=== PATIENT | male | born 1975 | race Caucasian/White ===

== ENCOUNTER 2018-02-24 09:24 | Outpatient (CLI) | payer OTHER ==
--- NOTE | 2018-02-24 11:27 | ULT ---
HEPATIC DUPLEX ULTRASOUND: INDICATIONS: Abnormal LFTs. TECHNIQUE: Rock-scale, color Doppler, and vascular duplex with spectral analysis is performed of the right upper quadrant and the hepatic vasculature. FINDINGS: There is diffuse fatty infiltration of the liver. The spleen is within normal limits in size and isabela sures 1.4 cm. The gallbladder is normal appearing. No sonographic Quiroz sign is reported. The com mon bile duct measures 2.2 mm. Appropriate hepatobiliary flow is seen within the portal vasculature, as well as within the hepatic vein and the splenic artery. IMPRESSION: 1. Fatty liver. 2. Appropriate hepatopetal flow demonstrated. POS: [facility]
== END 2018-02-24 09:25 | disposition home or self-care (01) ==
LOC: ULT 09:24
PROVIDERS: ATTEND Internal Medicine Gastroenterology
DX: R74.8 Abnormal levels of other serum enzymes (principal); K76.0 Fatty (change of) liver, not elsewhere classified
CPT/HCPCS: 76705

== ENCOUNTER 2018-12-21 09:27 | Emergency (ER) | payer OTHER ==
[2018-12-21] MEDS ORDERED: methylPREDNISolone Sod Succ/PF 125 MG/2 ML VIAL ONE ×2 (09:35→09:44)
== END 2018-12-21 11:37 | disposition home or self-care (01) ==
LOC: ERS 09:27
DX: T78.40XA Allergy, unspecified, initial encounter (principal); F17.200 Nicotine dependence, unspecified, uncomplicated; Z79.899 Other long term (current) drug therapy
CPT/HCPCS: 96361; 96374; J2930

== ENCOUNTER 2019-04-05 16:48 | Inpatient (IN) | payer OTHER ==
[~2019-04-05 16:48] MED LIST: ISOVUE-370 76%-LOCM 1 ML ONE
--- NOTE | 2019-04-05 17:26 | RAD ---
XR Chest 1 View Portable History: Dyspnea Comparison: Radiograph January 01, 2013 Findings: Heart size is enlarged. Single-lead defibrillator is in place. The pneumothorax. Mild pulmo nary venous congestion. No acute osseous abnormality. Impression: 1. Hepatomegaly and mild pulmonary venous congestion. 2. Opacity of the lingula just below the generator. Close attention on follow-up imaging recommended.
[2019-04-05 17:36] LABS: #Basophils 0.1 thou/uL (0.0-0.2); #Eosinphils 0.2 thou/uL (0.0-0.7); #Lymphocytes 1.8 thou/uL (1.20-3.40); #Neutrophils 8.4 thou/uL (1.40-6.50); %Basophils 0.8 % (0.0-1.0); %Eosinophils 2.1 % (0.0-10.0); %Lymphocytes 15.7 % (21.0-51.0); %Monocytes 8.2 % (0.0-10.0); %Neutrophils 73.2 % (42.0-75.0); Hemoglobin 15.4 g/dL (14.0-18.0); Mean Corpuscular Hemoglobin 34.7 pg (27.0-31.0); Mean Platelet Volume 7.6 fL (7.4-10.4); Platelet Count 199 thou/uL (130-400); RBC Distribution Width 11.8 % (11.5-14.5); Red Blood Cell (RBC) Count 4.44 mill/uL (4.70-6.10); White Blood Cell (WBC) Count 11.5 thou/uL (4.8-10.8)
[2019-04-05 17:54] LABS: Bilirubin Negative (Negative); Blood, Urine Negative (Negative); Clarity Clear (Clear); Glucose, Urine (Dipstick) Normal (Negative); Leukocyte Negative Leu/uL (Negative); Nitrite Negative (Negative); Protein, Urine (Dipstick) Negative (Neg-Trace); Urobilinogen Normal mg/dL (Less than 2)
[2019-04-05 17:58] LABS: ALT (SGPT) 194 U/L (8-55); AST (SGOT) 81 U/L (5-34); Albumin 4.4 g/dL (3.5-5.0); Alkaline Phosphatase 80 U/L (40-110); Anion Gap 11 mmol/L (10-20); BUN (Urea Nitrogen) 11 mg/dL (8.9-20.6); Bilirubin, Total 1.1 mg/dL (0.2-1.2); Calc. Creatinine Clearance 0 mL/min (70-130); Calcium 9.5 mg/dL (7.8-10.44); Carbon Dioxide 33 mmol/L (22-29); Chloride 93 mmol/L (98-107); Estimated GFR-MDRD Greater than 90; Globulin 3.5 g/dL (2.4-3.5); Glucose 103 mg/dL (70-105); Potassium 3.7 mmol/L (3.5-5.1); Protein, Total 7.9 g/dL (6.0-8.3); Sodium 133 mmol/L (136-145)
--- NOTE | 2019-04-05 18:50 | CT ---
CT ANGIO CHEST PERFORMED WITH INTRAVENOUS CONTRAST ENHANCEMENT WITH 3D RECONSTRUCTIONS: HISTORY: Acute shortness of breath. Dizziness and lightheadedness. Elevated D-dimer. FINDINGS: There are patchy infiltrative changes within the lingula. The right lung is clear. No significant mediastinal or hilar adenopathy. There is good pulmonary arterial opacification and no CT evidence for pulmonary embolus. There are diffuse fatty changes of the liver. IMPRESSION: 1. Lingular infiltrate. 2. No CT evidence of pulmonary embolus. 3. Fatty changes of the liver. POS: [facility]
[2019-04-05] MEDS ORDERED: Lorazepam 2 MG/ML VIAL ONE (19:19)
[2019-04-05] MEDS ORDERED: Furosemide 40 MG/4 ML VIAL ONE (19:19)
[2019-04-05] MEDS ORDERED: Azithromycin 250 MG TAB ONE (19:19)
[2019-04-05] MEDS ORDERED: cefTRIAXone\\ROCEPHIN 1 GM VIAL ONE (19:19)
[2019-04-05] MEDS ORDERED: Aspirin 325 MG TAB ONE (19:19)
[2019-04-05 21:02] LABS: Troponin I 0.024 ng/mL (< 0.028)
[2019-04-05] MEDS ORDERED: Ondansetron ODT 4 MG TAB PO PRN (21:02)
[2019-04-05] MEDS ORDERED: Ondansetron PF 4 MG/2 ML Vial IVP PRN (21:02)
[2019-04-05] MEDS ORDERED: Magnesium 2 GM/50 ML 2 GM in Premix Bag 1 BAG IVPB SCH (21:30)
[2019-04-05 22:25] VITALS: BMI 31.0
[2019-04-05 23:13] LABS: Troponin I 0.022 ng/mL (< 0.028)
[2019-04-05] MEDS ORDERED: Temazepam 15 MG CAP PO PRN (23:55)
[2019-04-05] MEDS: ALPRAZolam 1 MG TAB PO PRN (23:59)
--- NOTE | 2019-04-06 04:03 | HP ---
CHIEF COMPLAINT: Shortness of breath. HISTORY OF PRESENT ILLNESS: This is a 43-year-old male patient with past medical history of cardiomyopathy, alcohol abuse, also has reported the patient is doing vaping on a daily basis and drinking a lot of alcohol. The symptoms started insidiously and has gotten gradually worsening with no clear triggers, no alleviating factors likely related to alcohol and vaping abuse. The patient denies any fever. No chest pain, scant cough. REVIEW OF SYSTEMS: CONSTITUTIONAL: No fever, chills, or generalized weakness. RESPIRATORY: The patient has cough. No sputum production. Shortness of breath. CARDIOVASCULAR: No chest pain or palpitation. GASTROINTESTINAL: No nausea, vomiting, diarrhea, or abdominal pain. CENTRAL NERVOUS SYSTEM: No dizziness, headache, or feeling lightheaded. GENITOURINARY: No burning on urination. EXTREMITIES: No leg swelling. All other systems were reviewed and negative except for the findings mentioned above. PAST MEDICAL HISTORY: As mentioned in HPI. SURGICAL HISTORY: AICD placement. FAMILY HISTORY: Reviewed, noncontributory for current presentation. PSYCHIATRIC HISTORY: No previous psych history. SOCIAL HISTORY: The patient drinks everyday, more than 5 drinks per day. No drug use. ALLERGIES: KNOWN ALLERGIES TO MORPHINE. REPORTED MEDICATIONS: Carvedilol, spironolactone, Lasix, Adderall, EpiPen, temazepam, cyanocobalamin, alprazolam, naltrexone, duloxetine, and Prozac. PHYSICAL EXAMINATION: VITAL SIGNS: On presentation, blood pressure 160/95 with heart rate 120, respiratory rate was 22, temperature 98.1. Pain was 0/10. Oxygen saturation was 97% on room air. Blood pressure has been also on the high side. Heart rate is still elevated. GENERAL APPEARANCE: The patient is alert, oriented, not in acute distress. He seems anxious. HEENT: Eyes, normal conjunctivae. Moist oral mucosa. Anicteric. No JVD. RESPIRATORY: Bilateral air entry. No rales. No wheezes. Symmetric expansion. CARDIOVASCULAR: The patient is tachycardiac, hypertensive. No murmurs. No gallop. No edema. ABDOMEN: Soft. Normal bowel sounds. MUSCULOSKELETAL: Baseline range of motion and strength. SKIN: Warm and intact. No pallor. No rash. No redness. Capillary refill seems to be intact. NEUROLOGIC: No evidence of any new focal weakness. Cranial nerves seem to be intact. PSYCHIATRIC: The patient is seen anxious. DIAGNOSTIC DATA: EKG shows sinus tachycardia at the rate of 115, incomplete RBBB. Left ventricular hypertrophy, left atrial enlargement. QT corrected 459. Radiology; chest CT showed fatty liver disease and infiltrates in the lingular area. No PE. Preliminary review was done by the radiologist. LABORATORY DATA: Reviewed. The patient has white count 11.5, hemoglobin 15.4, MCV 102, platelet count 199. D-dimer is 1.67. Chemistry; sodium 133, potassium 3.7 , chloride 93, carbon dioxide 33, anion gap 11, BUN 11, creatinine 0.91, GFR greater than 90, glucose 103, calcium 9.5, magnesium 1.5. LFTs, mildly elevated. Beta natriuretic peptide 250. Troponins were negative x2. ASSESSMENT/PLAN: The patient will be placed in the hospital with following medical problems. 1. Community-acquired pneumonia, unclear how much of this is from abuse of vaping that the patient is having. This has been discussed with the patient and . The patient has been started on antibiotics. We will continue for now. We will follow cultures and adjust per sensitivity. 2. Chronic alcohol abuse, presenting with acute alcohol withdrawal. Patient has hypertension, tachycardia. Mentation is preserved. We will start the patient on YOSEPH protocol and adjust treatment as per progression of the withdrawal. 3. Positive D-dimer. CT angio was negative. 4. Hyponatremia, sodium 133, this is mild, no need for any further intervention at this point. We will monitor and treat accordingly. 5. Acute exacerbation of congestive heart failure. The patient has underlying cardiomyopathy. We will do echo, continue diuresis, reconcile home medications. If any significant abnormalities appear, the patient might benefit from consulting Cardiology. 6. Hypomagnesemia with magnesium 1.5. We will replace electrolytes as needed. 7. Deep venous thrombosis prophylaxis. 8. Anxiety likely secondary to alcohol withdrawal. Treatment as above. Job ID: [id number] [facility]
[2019-04-06 05:21] LABS: #Basophils 0.1 thou/uL (0.0-0.2); #Eosinphils 0.3 thou/uL (0.0-0.7); #Lymphocytes 2.6 thou/uL (1.20-3.40); #Monocytes 0.7 thou/uL (0.11-0.59); #Neutrophils 4.5 thou/uL (1.40-6.50); %Basophils 1.4 % (0.0-1.0); %Eosinophils 3.5 % (0.0-10.0); %Lymphocytes 32.2 % (21.0-51.0); %Monocytes 8.4 % (0.0-10.0); %Neutrophils 54.5 % (42.0-75.0); Hemoglobin 16.4 g/dL (14.0-18.0); Mean Corpuscular HGB CONC 33.6 g/dL (32.0-36.0); Mean Corpuscular Hemoglobin 34.5 pg (27.0-31.0); Mean Platelet Volume 8.2 fL (7.4-10.4); Platelet Count 200 thou/uL (130-400); RBC Distribution Width 11.8 % (11.5-14.5); Red Blood Cell (RBC) Count 4.77 mill/uL (4.70-6.10); White Blood Cell (WBC) Count 8.2 thou/uL (4.8-10.8)
[2019-04-06 05:41] LABS: Anion Gap 15 mmol/L (10-20); BUN (Urea Nitrogen) 13 mg/dL (8.9-20.6); Calc. Creatinine Clearance 162 mL/min (70-130); Calcium 10.1 mg/dL (7.8-10.44); Carbon Dioxide 30 mmol/L (22-29); Chloride 93 mmol/L (98-107); Estimated GFR-MDRD Greater than 90; Glucose 85 mg/dL (70-105); Potassium 3.9 mmol/L (3.5-5.1); Sodium 134 mmol/L (136-145)
[2019-04-06] MEDS ORDERED: FLU VACC QS2019-20(6MOS UP)/PF 60 MCG/0.5 ML SYRINGE IM ONE (09:00)
[2019-04-06] MEDS: Enoxaparin Sodium 40 MG/0.4 ML SYRINGE SC SCH (09:14)
[2019-04-06] MEDS: Furosemide 40 MG/4 ML VIAL SLOW IVP SCH (09:15)
--- NOTE | 2019-04-06 16:21 | CON ---
DATE OF CONSULTATION: REASON FOR CONSULTATION: Acute on chronic systolic heart failure. HISTORY OF PRESENT ILLNESS: Mr. Stapleton is a pleasant 43-year-old gentleman with previous history of alcoholic cardiomyopathy. He recently presented with increased shortness of breath in addition to increased abdominal girth. No chest pain or pressure noted. No lower extremity edema present. He was also diagnosed with pneumonia. PAST MEDICAL HISTORY: Dilated cardiomyopathy, ADHD, childhood epilepsy, liver disease of unknown severity, status post ICD. HOME MEDICATIONS: Include; 1. Valsartan. 2. Lasix. 3. Coreg. 4. Spironolactone. 5. Naltrexone. 6. Xanax. 7. Temazepam. ALLERGIES: NONE. SOCIAL HISTORY: He does vape. Positive alcohol use. REVIEW OF SYSTEMS: A 10-point review of systems is reviewed as above, otherwise negative. PHYSICAL EXAMINATION: VITAL SIGNS: Blood pressure 140/97, pulse 86, temperature 97.6. GENERAL: Patient is a pleasant male who is in no acute distress. The patient appears their stated age. NEUROLOGIC: The patient is alert and oriented x3 with no focal neurologic deficits. HEENT: Sclerae without icterus. Mouth has moist mucous membranes with normal pallor. NECK: No JVD. Carotid upstroke brisk. No bruits bilaterally. LUNGS: Clear to auscultation with unlabored respirations. BACK: No scoliosis or kyphosis. CARDIAC: Regular rate and rhythm with normal S1 and S2. No S3 or S4 noted. No significant rubs, murmurs, thrills, or gallops noted throughout the precordium. PMI is not displaced. There is no parasternal heave. ABDOMEN: Increased abdominal girth. EXTREMITIES: 2+ femoral and 2+ dorsalis pedis pulses. No cyanosis, clubbing, or edema. SKIN: No gross abnormalities. PERTINENT LABORATORY DATA: Hemoglobin 16.7, white blood cell count 8.2, platelet count 200. Creatinine 0.87. Magnesium 1.5. BNP of 650. CT chest, negative for PE. Fatty changes of liver. Chest x-ray; hepatomegaly and venous congestion. ?Pneumonia. IMPRESSION: 1. Nonischemic cardiomyopathy. 2. Continued alcohol use. 3. Liver disease of unknown severity. RECOMMENDATIONS: We will place Vinod on outpatient medications. Continue valsartan, Lasix, Coreg, and spironolactone. We will supplement with IV Lasix given that he appears euvolemic. Again, I counseled him on cessation of alcohol, which is likely significantly detrimental. He was also placed on antibiotic therapy for possible pneumonia. Job ID: [id number]
[2019-04-06] MEDS: ALPRAZolam 1 MG TAB PO PRN (16:47)
[2019-04-06] MEDS ORDERED: Lorazepam 2 MG/ML VIAL SLOW IVP PRN (17:03)
--- NOTE | 2019-04-06 17:09 | PDOC.HOSPP ---
- Subjective Encounter Date: 04/06/19 Encounter Time: 11:00 Subjective: Mr. Stapleton was seen today in follow-up of respiratory failure. He says he is breathing better today. He is less short of breath. - Objective Vital Signs & Weight: Vital Signs (12 hours) Temp Pulse Resp BP BP BP Pulse Ox 04/06/19 15:41 98.2 F 101 H 17 137/86 137/86 96 04/06/19 12:00 141/97 H 04/06/19 11:19 97.6 F 86 12 141/97 H 98 04/06/19 09:14 94 L 04/06/19 08:00 149/98 H 04/06/19 07:35 97.6 F 91 12 149/98 H 94 L Weight Weight 228 lb 14.4 oz Result Diagrams: 04/06/19 04:36 04/06/19 04:36 Hospitalist ROS - Medication Medications: Active Medications Generic Name Dose Route Start Last Admin Trade Name Freq PRN Reason Stop Dose Admin Alprazolam 1 mg 04/05/19 23:44 04/06/19 16:47 Xanax PO 1 mg TID PRN Administration Anxiety Enoxaparin Sodium 40 mg 04/06/19 09:00 04/06/19 09:14 Lovenox SC 40 mg 0900 SHAYAN Administration Furosemide 40 mg 04/06/19 09:00 04/06/19 09:15 Lasix SLOW IVP 40 mg DAILY SHAYAN Administration - Exam Eye: PERRL, anicteric sclera Heart: RRR, no murmur, no gallops, no rubs, normal peripheral pulses Respiratory: CTAB, no wheezes, no rales, no ronchi, normal chest expansion Gastrointestinal: soft, non-tender, non-distended, normal bowel sounds, no palpable masses, no hepatomegaly, no splenomegaly, no bruit Extremities: no cyanosis, no clubbing, no edema Psychiatric: normal affect, A&O x 3 Hosp A/P (1) Acute on chronic systolic and diastolic heart failure, NYHA class 2 Code(s): I50.43 - ACUTE ON CHRONIC COMBINED SYSTOLIC AND DIASTOLIC HRT FAIL Status: Acute (2) Alcohol abuse Code(s): F10.10 - ALCOHOL ABUSE, UNCOMPLICATED Status: Acute (3) Pneumonia, aspiration Code(s): J69.0 - PNEUMONITIS DUE TO INHALATION OF FOOD AND VOMIT Status: Acute - Plan * Acute on chronic systolic heart failure- improved after Lasix IV * Await Echo results * Alcohol abuse- will add thiamine and folic acid, and continue the ASE protocol , and ativan as needed * Pneumonia- possible- and if present likely from aspiration. Will discontinue Azithromycin and add Flagyl
[2019-04-06] MEDS: DULoxetine 60 MG CAP PO SCH (19:51)
[2019-04-06] MEDS: cefTRIAXone\\ROCEPHIN 1 GM in Sodium Chloride 0.9% 100 ML IVPB SCH (19:51)
[2019-04-06] MEDS: metroNIDAZOLE 500 MG TAB PO SCH (19:51)
[2019-04-06] MEDS ORDERED: Azithromycin 500 MG in Sodium Chloride 0.9% 250 ML 250 ML IVPB SCH (20:00)
[2019-04-06] MEDS ORDERED: Carvedilol 6.25 MG TAB PO SCH (21:00)
[2019-04-07] MEDS ORDERED: cloNIDine 0.1 MG TAB PO PRN (04:11)
--- NOTE | 2019-04-07 07:13 | PDOC.CPN ---
- Objective Allergies/Adverse Reactions: Allergies Allergy/AdvReac Type Severity Reaction Status Date / Time morphine Allergy Verified 01/01/13 12:34 Visit Medications: Current Medications Alprazolam (Xanax) 1 mg PO TID PRN PRN Reason: Anxiety Last Admin: 04/06/19 16:47 Dose: 1 mg Clonidine (Catapres) 0.1 mg PO Q4H PRN PRN Reason: SBP GREATER THAN 160; DBP >100 Last Admin: 04/07/19 04:27 Dose: 0.1 mg Duloxetine HCl (Cymbalta) 60 mg PO BID [facility] Last Admin: 04/06/19 19:51 Dose: 60 mg Enoxaparin Sodium (Lovenox) 40 mg SC 0900 [facility] Last Admin: 04/06/19 09:14 Dose: 40 mg Folic Acid (Folvite) 1 mg PO DAILY [facility] Furosemide (Lasix) 40 mg SLOW IVP DAILY [facility] Last Admin: 04/06/19 09:15 Dose: 40 mg Ceftriaxone Sodium 1 gm/ (Sodium Chloride) 100 mls @ 200 mls/hr IVPB Q24HR [facility] Last Admin: 04/06/19 19:51 Dose: 100 mls Lorazepam (Ativan) 1 mg SLOW IVP Q4H PRN PRN Reason: Anxiety/Agitation Last Admin: 04/06/19 21:51 Dose: 1 mg Metronidazole (Flagyl) 500 mg PO TID [facility] Last Admin: 04/06/19 19:51 Dose: 500 mg Ondansetron HCl (Zofran Odt) 4 mg PO Q6H PRN PRN Reason: Nausea/Vomiting Ondansetron HCl (Zofran) 4 mg IVP Q6H PRN PRN Reason: Nausea/Vomiting Spironolactone (Aldactone) 25 mg PO QAM-WM [facility] Temazepam (Restoril) 30 mg PO HS PRN PRN Reason: Insomnia Thiamine HCl (Thiamine) 100 mg PO DAILY [facility] Valsartan (Diovan) 80 mg PO DAILY [facility] Vital Signs & Weight: Vital Signs Temp Pulse Resp BP BP Pulse Ox 04/07/19 05:21 91 148/94 H 04/07/19 04:27 166/108 H 04/07/19 04:00 98.2 F 108 H 18 172/112 H 98 04/07/19 00:00 129 H 154/104 H 04/06/19 20:00 98.1 F 121 H 20 172/107 H 172/107 H 95 Weight 228 lb 14.4 oz - Physical Exam General: alert & oriented x3 Neck: no masses, no bruit Cardiac: regular rate, regular rhythm Lungs: normal exam, no wheezes Neuro: motor function intact - Labs Result Diagrams: 04/06/19 04:36 04/06/19 04:36 Troponin/CKMB Troponin I 0.022 ng/mL (< 0.028) 04/05/19 22:37 - Assessment/Plan Assessment/Plan: Acute on chronic systolic heart failure ETOH abuse Increase coreg to 12.5mg BID Lasix IV Coounseled on ETOH On spironolactone Add ACEI
[2019-04-07] MEDS ORDERED: Lisinopril 10 MG TAB PO SCH (09:00)
[2019-04-07] MEDS ORDERED: Carvedilol 25 MG TAB PO SCH (09:00)
[2019-04-07] MEDS ORDERED: Valsartan 80 MG TAB PO SCH (09:00)
[2019-04-07 09:06] LABS: Anion Gap 15 mmol/L (10-20); BUN (Urea Nitrogen) 14 mg/dL (8.9-20.6); Calc. Creatinine Clearance 170 mL/min (70-130); Calcium 10.4 mg/dL (7.8-10.44); Carbon Dioxide 29 mmol/L (22-29); Chloride 95 mmol/L (98-107); Estimated GFR-MDRD Greater than 90; Glucose 99 mg/dL (70-105); Potassium 4.6 mmol/L (3.5-5.1); Sodium 134 mmol/L (136-145)
[2019-04-07] MEDS: Furosemide 40 MG/4 ML VIAL SLOW IVP SCH (10:50)
[2019-04-07] MEDS: Enoxaparin Sodium 40 MG/0.4 ML SYRINGE SC SCH (10:50)
[2019-04-07] MEDS: Carvedilol 6.25 MG TAB PO SCH ×2 (10:51→17:10)
[2019-04-07] MEDS: Thiamine 100 MG TAB PO SCH (10:51)
[2019-04-07] MEDS: metroNIDAZOLE 500 MG TAB PO SCH ×3 (10:51→21:11)
[2019-04-07] MEDS: DULoxetine 60 MG CAP PO SCH ×2 (10:51→21:11)
[2019-04-07] MEDS: Spironolactone 25 MG TAB PO SCH (10:52)
[2019-04-07] MEDS: Folic Acid 1 MG TAB PO SCH (10:52)
[2019-04-07] MEDS: ALPRAZolam 1 MG TAB PO PRN ×3 (10:58→23:08)
--- NOTE | 2019-04-07 13:03 | ULT ---
ABDOMINAL ULTRASOUND: INDICATION: Alcohol use. FINDINGS: The liver shows a dense echotexture suggesting fatty infiltration or medical hepatic disease. The li eileen mildly enlarged measuring up to 20 cm. Spleen size is upper normal measured at 12 cm. The gallbladder is unremarkable with no evidence of gallstones. The common duct is normal caliber. Visualized aorta and IVC unremarkable. The pancreas is obscured. Both kidneys are imaged and each measures approximately 12 cm. Both kidneys are unremarkable. IMPRESSION: There is hepatomegaly. The liver exhibits increased echotexture consistent with fatty infiltration o r medical hepatic disease. Correlate with liver function tests. POS: [facility]
[2019-04-07] MEDS ORDERED: FLUoxetine HCl 10 MG CAP PO SCH (13:15)
[2019-04-07 14:02] LABS: ALT (SGPT) 309 U/L (8-55); AST (SGOT) 247 U/L (5-34); Albumin 4.4 g/dL (3.5-5.0); Alkaline Phosphatase 78 U/L (40-110); Bilirubin, Direct 0.6 mg/dL (0.1-0.3); Bilirubin, Total 1.2 mg/dL (0.2-1.2); Protein, Total 8.4 g/dL (6.0-8.3)
[2019-04-07 14:18] LABS: HBCM Index 0.07 S/CO (0-0.79); HBSAg Index 0.33 S/CO (0-0.99); Hep A IgM AB Non-Reactive (NonReactive); Hep A IgM S/CO 0.11 S/CO (0-0.79); Hep B Surf Ag Non-Reactive S/CO (NonReactive); Hep C IgG Ab Non-Reactive (NonReactive); Hepatitis B Core IgM Abs Non-Reactive (NonReactive)
--- NOTE | 2019-04-07 14:45 | PDOC.CPN ---
- Subjective Date: 04/07/19 Time: 09:00 Interval history: Patient resting. Family states has trouble sleeping at night. No overnight events. - Review of Systems General: denies: fever/chills, weight/appetite/sleep changes, night sweats, fatigue Respiratory: reports: congestion Cardiovascular: denies: chest pain, palpitation, edema, paroxysmal nocturnal dyspnea, orthopnea Gastrointestinal: denies: nausea, vomiting, diarrhea, constipation, abd pain, GI bleeding Musculoskeletal: denies: pain, tenderness, stiffness, swelling, arthritis/ arthralgias Neurological: denies: numbness, syncope, seizure, weakness - Objective Allergies/Adverse Reactions: Allergies Allergy/AdvReac Type Severity Reaction Status Date / Time morphine Allergy Verified 01/01/13 12:34 Visit Medications: Current Medications Alprazolam (Xanax) 1 mg PO TID PRN PRN Reason: Anxiety Last Admin: 04/07/19 10:58 Dose: 1 mg Carvedilol (Coreg) 6.25 mg PO BID[facility] Last Admin: 04/07/19 10:51 Dose: 6.25 mg Clonidine (Catapres) 0.1 mg PO Q4H PRN PRN Reason: SBP GREATER THAN 160; DBP >100 Last Admin: 04/07/19 04:27 Dose: 0.1 mg Duloxetine HCl (Cymbalta) 60 mg PO BID [facility] Last Admin: 04/07/19 10:51 Dose: 60 mg Enoxaparin Sodium (Lovenox) 40 mg SC 0900 [facility] Last Admin: 04/07/19 10:50 Dose: 40 mg Fluoxetine HCl (Prozac) 10 mg PO DAILY [facility] Fluoxetine HCl (Prozac) 10 mg PO NOW [facility] Stop: 04/07/19 15:15 Folic Acid (Folvite) 1 mg PO DAILY [facility] Last Admin: 04/07/19 10:52 Dose: 1 mg Furosemide (Lasix) 40 mg SLOW IVP DAILY [facility] Last Admin: 04/07/19 10:50 Dose: 40 mg Ceftriaxone Sodium 1 gm/ (Sodium Chloride) 100 mls @ 200 mls/hr IVPB Q24HR [facility] Last Admin: 04/06/19 19:51 Dose: 100 mls Lorazepam (Ativan) 1 mg SLOW IVP Q4H PRN PRN Reason: Anxiety/Agitation Last Admin: 04/06/19 21:51 Dose: 1 mg Metronidazole (Flagyl) 500 mg PO TID [facility] Last Admin: 04/07/19 10:51 Dose: 500 mg Ondansetron HCl (Zofran Odt) 4 mg PO Q6H PRN PRN Reason: Nausea/Vomiting Ondansetron HCl (Zofran) 4 mg IVP Q6H PRN PRN Reason: Nausea/Vomiting Spironolactone (Aldactone) 25 mg PO QAM-WM [facility] Last Admin: 04/07/19 10:52 Dose: 25 mg Temazepam (Restoril) 30 mg PO HS PRN PRN Reason: Insomnia Thiamine HCl (Thiamine) 100 mg PO DAILY [facility] Last Admin: 04/07/19 10:51 Dose: 100 mg Valsartan (Diovan) 80 mg PO DAILY [facility] Last Admin: 04/07/19 10:51 Dose: 80 mg Vital Signs & Weight: Vital Signs Temp Pulse Resp BP BP Pulse Ox 04/07/19 08:00 98.0 F 92 17 132/86 96 04/07/19 05:21 91 148/94 H 04/07/19 04:27 166/108 H 04/07/19 04:00 98.2 F 108 H 18 172/112 H 98 Weight 228 lb 14.4 oz - Labs Result Diagrams: 04/06/19 04:36 04/07/19 08:32 Troponin/CKMB Troponin I 0.022 ng/mL (< 0.028) 04/05/19 22:37 - Telemetry Sinus rhythms and dysrhythmias: sinus rhythm - Assessment/Plan Assessment/Plan: 1. Acute on chronic systolic heart failure 2. Dilated PRICING ASSOCIATE 3. ETOH abuse 4. Insomnia Stop lisinopril. Wash-out and will start Entresto after 36 hours. Coreg increased. Aldactone added. Will add PRN remeron for sleep.
--- NOTE | 2019-04-07 17:38 | PDOC.HOSPP ---
- Subjective Encounter Date: 04/07/19 Encounter Time: 12:00 Subjective: Mr. Stapleton was seen today in follow-up of CHF exacerbation. He says he is breathing better, but admits he feels a bit anxious. He admits he drinks heavily , and his last drink was Friday. - Objective Vital Signs & Weight: Vital Signs (12 hours) Temp Pulse Resp BP Pulse Ox 04/07/19 15:57 96.0 F L 71 20 156/91 H 04/07/19 08:00 98.0 F 92 17 132/86 96 Weight Weight 228 lb 14.4 oz I&O: 04/06/19 04/07/19 04/08/19 06:59 06:59 06:59 Intake Total 1460 600 Balance 1460 600 Result Diagrams: 04/06/19 04:36 04/07/19 08:32 Hospitalist ROS - Medication Medications: Active Medications Generic Name Dose Route Start Last Admin Trade Name Freq PRN Reason Stop Dose Admin Alprazolam 1 mg 04/05/19 23:44 04/07/19 17:11 Xanax PO 1 mg TID PRN Administration Anxiety Carvedilol 6.25 mg 04/07/19 08:00 04/07/19 17:10 Coreg PO 6.25 mg BID-WM SHAYAN Administration Clonidine 0.1 mg 04/07/19 04:11 04/07/19 04:27 Catapres PO 0.1 mg Q4H PRN Administration SBP GREATER THAN 160; DBP >100 Duloxetine HCl 60 mg 04/06/19 21:00 04/07/19 10:51 Cymbalta PO 60 mg BID SHAYAN Administration Enoxaparin Sodium 40 mg 04/06/19 09:00 04/07/19 10:50 Lovenox SC 40 mg 0900 SHAYAN Administration Folic Acid 1 mg 04/07/19 09:00 04/07/19 10:52 Folvite PO 1 mg DAILY SHAYAN Administration Furosemide 40 mg 04/06/19 09:00 04/07/19 10:50 Lasix SLOW IVP 40 mg DAILY SHAYAN Administration Ceftriaxone Sodium 1 gm/ 100 mls @ 200 mls/hr 04/06/19 20:00 04/06/19 19:51 Sodium Chloride IVPB 100 mls Q24HR SHAYAN Administration Lorazepam 1 mg 04/06/19 17:03 04/06/19 21:51 Ativan SLOW IVP 1 mg Q4H PRN Administration Anxiety/Agitation Metronidazole 500 mg 04/06/19 21:00 04/07/19 15:41 Flagyl PO 500 mg TID SHAYAN Administration Spironolactone 25 mg 04/07/19 08:00 04/07/19 10:52 Aldactone PO 25 mg QAM-WM SHAYAN Administration Thiamine HCl 100 mg 04/07/19 09:00 04/07/19 10:51 Thiamine PO 100 mg DAILY SHAAYN Administration - Exam Eye: PERRL, anicteric sclera Heart: RRR (regular but tachycardic), no murmur, no gallops, no rubs, normal peripheral pulses Respiratory: CTAB, no wheezes, no rales, no ronchi, normal chest expansion, no tachypnea, normal percussion Gastrointestinal: soft, non-tender, non-distended, normal bowel sounds, no palpable masses, no hepatomegaly, distended Extremities: no cyanosis, no clubbing, no edema Hosp A/P (1) Acute on chronic systolic and diastolic heart failure, NYHA class 2 Code(s): I50.43 - ACUTE ON CHRONIC COMBINED SYSTOLIC AND DIASTOLIC HRT FAIL Status: Acute (2) Alcohol abuse Code(s): F10.10 - ALCOHOL ABUSE, UNCOMPLICATED Status: Acute (3) Pneumonia, aspiration Code(s): J69.0 - PNEUMONITIS DUE TO INHALATION OF FOOD AND VOMIT Status: Acute - Plan * Acute on chronic systolic heart failure- continue to diurese * Awaiting Echo results * Alcohol abuse- will add thiamine and folic acid, and continue the ASE protocol , and ativan as needed * Discussed the need to quit. He told me he is not interested inquiting despite the risk of liver failure and even . Will continue to consumer credit counselor during the hospital stay * will check an abdominal ultrasound, and hepatitis panel * Pneumonia- possible- and if present likely from aspiration. Will discontinue Azithromycin and add Flagyl
[2019-04-07] MEDS ORDERED: Mirtazapine 15 MG TAB PO SCH (21:00)
[2019-04-07] MEDS: cefTRIAXone\\ROCEPHIN 1 GM in Sodium Chloride 0.9% 100 ML IVPB SCH (21:11)
[2019-04-08] MEDS ORDERED: Valsartan 80 MG TAB PO SCH (09:00)
[2019-04-08] MEDS ORDERED: FLUoxetine HCl 10 MG CAP PO SCH (09:00)
[2019-04-08] MEDS: Furosemide 40 MG/4 ML VIAL SLOW IVP SCH (09:02)
[2019-04-08] MEDS: Thiamine 100 MG TAB PO SCH (09:02)
[2019-04-08] MEDS: DULoxetine 60 MG CAP PO SCH (09:02)
[2019-04-08] MEDS: metroNIDAZOLE 500 MG TAB PO SCH (09:02)
[2019-04-08] MEDS: Spironolactone 25 MG TAB PO SCH (09:02)
[2019-04-08] MEDS: Carvedilol 6.25 MG TAB PO SCH (09:02)
[2019-04-08] MEDS: Folic Acid 1 MG TAB PO SCH (09:02)
[2019-04-08] MEDS: Enoxaparin Sodium 40 MG/0.4 ML SYRINGE SC SCH (09:03)
[2019-04-08 10:02] LABS: Anion Gap 10 mmol/L (10-20); BUN (Urea Nitrogen) 23 mg/dL (8.9-20.6); Calc. Creatinine Clearance 110 mL/min (70-130); Calcium 9.6 mg/dL (7.8-10.44); Carbon Dioxide 31 mmol/L (22-29); Chloride 97 mmol/L (98-107); Estimated GFR-MDRD 63; Glucose 90 mg/dL (70-105); Potassium 3.6 mmol/L (3.5-5.1); Sodium 134 mmol/L (136-145)
[2019-04-08] MEDS ORDERED: Loperamide HCl 1 MG/7.5 ML UDCUP PO PRN (13:14)
[2019-04-08 14:16] VITALS: BP 109/63
[2019-04-08 14:17] VITALS: TEMP 98.3
--- NOTE | 2019-04-08 14:32 | PDOC.HOSPP ---
- Subjective Encounter Date: 04/08/19 Encounter Time: 14:28 Subjective: Mr. Stapleton was seen today in follow-up of CHF exacerbation, and alcohol abuse. He feels much better today. He denies dyspnea. - Objective Vital Signs & Weight: Vital Signs (12 hours) Temp Pulse Resp BP BP BP Pulse Ox 04/08/19 12:00 98.3 F 82 20 109/63 109/63 97 04/08/19 09:02 104/68 04/08/19 08:00 97.4 F L 81 12 104/68 104/68 96 04/08/19 04:00 97.6 F 88 18 110/72 110/72 95 Weight Weight 225 lb I&O: 04/07/19 04/08/19 04/09/19 06:59 06:59 06:59 Intake Total 1460 1050 Balance 1460 1050 Result Diagrams: 04/06/19 04:36 04/08/19 09:15 Hospitalist ROS - Medication Medications: Active Medications Generic Name Dose Route Start Last Admin Trade Name Freq PRN Reason Stop Dose Admin Alprazolam 1 mg 04/05/19 23:44 04/07/19 23:08 Xanax PO 1 mg TID PRN Administration Anxiety Carvedilol 6.25 mg 04/07/19 08:00 04/08/19 09:02 Coreg PO 6.25 mg BID-WM SHAYAN Administration Clonidine 0.1 mg 04/07/19 04:11 04/07/19 04:27 Catapres PO 0.1 mg Q4H PRN Administration SBP GREATER THAN 160; DBP >100 Duloxetine HCl 60 mg 04/06/19 21:00 04/08/19 09:02 Cymbalta PO 60 mg BID SHAYAN Administration Enoxaparin Sodium 40 mg 04/06/19 09:00 04/08/19 09:03 Lovenox SC 40 mg 0900 SHAYAN Administration Fluoxetine HCl 10 mg 04/08/19 09:00 04/08/19 09:03 Prozac PO 10 mg DAILY SHAYAN Administration Folic Acid 1 mg 04/07/19 09:00 04/08/19 09:02 Folvite PO 1 mg DAILY SHAYAN Administration Furosemide 40 mg 04/06/19 09:00 04/08/19 09:02 Lasix SLOW IVP 40 mg DAILY SHAYAN Administration Ceftriaxone Sodium 1 gm/ 100 mls @ 200 mls/hr 04/06/19 20:00 04/07/19 21:11 Sodium Chloride IVPB 100 mls Q24HR SHAYAN Administration Lorazepam 1 mg 04/06/19 17:03 04/06/19 21:51 Ativan SLOW IVP 1 mg Q4H PRN Administration Anxiety/Agitation Metronidazole 500 mg 04/06/19 21:00 04/08/19 09:02 Flagyl PO 500 mg TID SHAYAN Administration Mirtazapine 15 mg 04/07/19 21:00 04/07/19 21:11 Remeron PO 15 mg HS SHAYAN Administration Spironolactone 25 mg 04/07/19 08:00 04/08/19 09:02 Aldactone PO 25 mg QAM-WM SHAYAN Administration Thiamine HCl 100 mg 04/07/19 09:00 04/08/19 09:02 Thiamine PO 100 mg DAILY SHAYAN Administration - Exam Eye: PERRL, anicteric sclera Heart: RRR, no murmur, no gallops, no rubs, normal peripheral pulses Respiratory: CTAB, no wheezes, no rales, no ronchi, normal chest expansion, no tachypnea, normal percussion Gastrointestinal: soft, non-tender, non-distended, normal bowel sounds, no palpable masses, no hepatomegaly, no splenomegaly Extremities: no cyanosis, no clubbing, no edema Psychiatric: normal affect, normal behavior, A&O x 3 Hosp A/P (1) Acute on chronic systolic and diastolic heart failure, NYHA class 2 Code(s): I50.43 - ACUTE ON CHRONIC COMBINED SYSTOLIC AND DIASTOLIC HRT FAIL Status: Acute (2) Alcohol abuse Code(s): F10.10 - ALCOHOL ABUSE, UNCOMPLICATED Status: Acute (3) Pneumonia, aspiration Code(s): J69.0 - PNEUMONITIS DUE TO INHALATION OF FOOD AND VOMIT Status: Acute - Plan * Acute on chronic systolic heart failure- compensated- Echo results noted. His EF persists around 20% * Alcohol abuse- his vital signs have stabilized, heart rate and blood pressure. He does not appear labored. continue ativan as needed * Abdominal ultrasound results were noted and discussed with the patient * Pneumonia- unlikely- I suspect the dyspnea, and radiographic findings were related to volume overload- will discontinue antibiotics * Disposition per Cardiology
[2019-04-08] MEDS ORDERED: Loperamide HCl 2 MG CAP PO PRN (14:45)
--- NOTE | 2019-04-08 17:35 | PRG ---
DATE OF SERVICE: SUBJECTIVE: Mr. Stapleton is currently doing well. No current complaints. He states he is back to baseline. OBJECTIVE: VITAL SIGNS: Blood pressure 109/63, pulse 82, temperature afebrile. LUNGS: Clear to auscultation. HEART: Regular rate and rhythm. ABDOMEN: Soft, nontender, and nondistended. EXTREMITIES: No edema. IMPRESSION: 1. Acute on chronic systolic heart failure. 2. Pneumonia. 3. Alcohol abuse. RECOMMENDATIONS: At this point, the patient appears euvolemic. He is back to baseline. It would be okay from my standpoint to discharge home. His current CHF regime does include carvedilol 6.25 one p.o. b.i.d. with stable heart rate and blood pressure. I would change Lasix to 20 mg p.o. q.a.m. Entresto has been added. We would also continue spironolactone. Plan is to follow up with Mr. Stapleton in the next 1 to 2 weeks while in the office. We will sign off. Please re-consult if needed. Job ID: [id number]
[2019-04-08] MEDS ORDERED: Sacubitril 24.5 MG/Valsartan 25.5 MG TABLET PO SCH (21:00)
--- NOTE | 2019-04-11 00:12 | EKG ---
Test Reason : Blood Pressure : / mmHG Vent. Rate : 115 BPM Atrial Rate : 115 BPM P-R Int : 184 ms QRS Dur : 110 ms QT Int : 332 ms P-R-T Axes : 058 -25 054 degrees QTc Int : 459 ms Sinus tachycardia Left atrial enlargement Incomplete right bundle branch block Left ventricular hypertrophy Cannot rule out Septal infarct , age undetermined Abnormal ECG Confirmed by JACQUES HENNESSY ([id number]), commissioning editor CHUCHO MURRAY ([id number] on 04/11/2019 12:12:06 AM Referred By: Confirmed By:JACQUES HENNESSY
== END 2019-04-08 17:32 | disposition left against medical advice (07) | DRG 291 ==
LOC: ERS 16:48 → 2NO 21:44
PROVIDERS: ADMIT Hospitalist; ATTEND Hospitalist
DX: I11.0 Hypertensive heart disease with heart failure (principal); J18.9 Pneumonia, unspecified organism; E87.1 Hypo-osmolality and hyponatremia; F10.280 Alcohol dependence with alcohol-induced anxiety disorder; F10.239 Alcohol dependence with withdrawal, unspecified; I42.8 Other cardiomyopathies; I50.43 Acute on chronic combined systolic (congestive) and diastolic (congestive) heart failure; E83.42 Hypomagnesemia; F90.9 Attention-deficit hyperactivity disorder, unspecified type; Z95.810 Presence of automatic (implantable) cardiac defibrillator; Z88.6 Allergy status to analgesic agent; Z88.8 Allergy status to other drugs, medicaments and biological substances
CPT/HCPCS: 36415; 71045; 71275; 76700; 80048; 80053; 80074; 80076; 81003; 83735; 83880; 84484; 85025; 85379; 93005; 93306; 96365; 96375; J0696; J1650; J1940; J2060; J3475; J3490; Q9966

== ENCOUNTER 2020-01-07 16:33 | Emergency (ER) | payer OTHER ==
[2020-01-07] MEDS ORDERED: Ibuprofen 200 MG TAB ONE (17:04)
[2020-01-07] MEDS ORDERED: Acetaminophen 500 MG TAB ONE (17:04)
[2020-01-07 17:11] LABS: #Lymphocytes 0.9 thou/uL (1.20-3.40); #Monocytes 0.5 thou/uL (0.11-0.59); %Basophils 0.7 % (0.0-1.0); %Eosinophils 0.8 % (0.0-10.0); %Lymphocytes 20.5 % (21.0-51.0); %Monocytes 10.8 % (0.0-10.0); %Neutrophils 67.3 % (42.0-75.0); Hemoglobin 15.4 g/dL (14.0-18.0); Mean Corpuscular HGB CONC 32.5 g/dL (32.0-36.0); Mean Corpuscular Volume 98.5 fL (78.0-98.0); Mean Platelet Volume 7.7 fL (7.4-10.4); Platelet Count 144 thou/uL (130-400); RBC Distribution Width 11.9 % (11.5-14.5); Red Blood Cell (RBC) Count 4.82 mill/uL (4.70-6.10); White Blood Cell (WBC) Count 4.5 thou/uL (4.8-10.8)
[2020-01-07 17:16] LABS: INR-International Normal Ratio 0.9; PTT 25.2 sec (22.9-36.1); Prothrombin Time 12.4 sec (12.0-14.7)
[2020-01-07 17:31] LABS: ALT (SGPT) 103 U/L (8-55); AST (SGOT) 63 U/L (5-34); Acetaminophen Less than 6.0 mcg/mL (10.0-30.0); Albumin 4.1 g/dL (3.5-5.0); Alcohol Less than 10 mg/dL (Less than 10); Alkaline Phosphatase 90 U/L (40-110); Anion Gap 12 mmol/L (10-20); BUN (Urea Nitrogen) 8 mg/dL (8.9-20.6); Bilirubin, Total 0.8 mg/dL (0.2-1.2); Calc. Creatinine Clearance 0 mL/min (70-130); Calcium 9.5 mg/dL (7.8-10.44); Carbon Dioxide 29 mmol/L (22-29); Chloride 96 mmol/L (98-107); Estimated GFR-MDRD 83; Globulin 3.5 g/dL (2.4-3.5); Glucose 105 mg/dL (70-105); Potassium 3.7 mmol/L (3.5-5.1); Protein, Total 7.6 g/dL (6.0-8.3); Salicylate Less than 8.0 mg/dL (15.0-30.0); Sodium 133 mmol/L (136-145)
--- NOTE | 2020-01-07 17:41 | RAD ---
CHEST 1 VIEW PORTABLE: Date: 01/07/2020 HISTORY: Dyspnea. Positive COVID roommate with fever and chills. COMPARISON: 04/05/2019. FINDINGS: Left ICD. Heart size is within normal limits. No confluent pneumonia, overt edema, or pleural effusio n. IMPRESSION: No significant acute intrathoracic disease. Stable from prior study. POS: [facility]
[2020-01-07 19:10] LABS: Amphetamine Not Detected (NotDetected); Barbiturates Screen Not Detected (NotDetected); Benzodiazepine Screen Detected (NotDetected); Cocaine Metabolite Screen Not Detected (NotDetected); Medtox Control Line Valid? VALID (VALID); Medtox Reader # READER 4; Methadone Not Detected (NotDetected); Methamphetamine Not Detected (NotDetected); Opiate Screen Not Detected (NotDetected); Oxycodone Screen Not Detected (NotDetected); Phencyclidine (PCP) Not Detected (NotDetected); THC/Cannabinoid Screen Detected (NotDetected); Tricyclic Screen Not Detected (NotDetected)
[2020-01-09 12:27] LABS: SARS-CoV-2 MS2 Positive; SARS-CoV-2 N Gene Negative; SARS-CoV-2 S Gene Negative; SARS-CoV-2 orf1ab Negative
== END 2020-01-07 19:05 | disposition home or self-care (01) ==
LOC: ERS 16:33
DX: R50.9 Fever, unspecified (principal); Z20.828 Contact with and (suspected) exposure to other viral communicable diseases; I10 Essential (primary) hypertension; F17.290 Nicotine dependence, other tobacco product, uncomplicated; Z79.899 Other long term (current) drug therapy
CPT/HCPCS: 71045; 80053; 80306; 80307; 83880; 84484; 85025; 85610; 85730; 87635; 93005; 94760; 96360; 96361; U0003

== ENCOUNTER 2020-01-11 08:45 | Emergency (ER) | payer OTHER | END 2020-01-11 09:40 | disposition left against medical advice (07) | LOC: ERS 08:45 | DX: Z53.21 Procedure and treatment not carried out due to patient leaving prior to being seen by health care provider (principal) ==

== ENCOUNTER 2020-01-12 12:26 | Emergency (ER) | payer OTHER ==
[~2020-01-12 12:26] MED LIST changes: -ISOVUE-370 76%-LOCM 1 ML ONE; +Iopamidol-370 76% 500 ML 1 ML ONE
[2020-01-12 14:24] LABS: Mean Corpuscular HGB CONC 33.9 g/dL (32.0-36.0); Mean Platelet Volume 8.6 fL (7.4-10.4); Platelet Count 138 thou/uL (130-400); Red Blood Cell (RBC) Count 4.43 mill/uL (4.70-6.10); White Blood Cell (WBC) Count 2.9 thou/uL (4.8-10.8)
[2020-01-12 14:34] LABS: ALT (SGPT) 246 U/L (8-55); AST (SGOT) 195 U/L (5-34); Albumin 3.9 g/dL (3.5-5.0); Alkaline Phosphatase 263 U/L (40-110); Anion Gap 10 mmol/L (10-20); BUN (Urea Nitrogen) 11 mg/dL (8.9-20.6); CK (CPK) 13 U/L (30-200); Calc. Creatinine Clearance 0 mL/min (70-130); Calcium 9.9 mg/dL (7.8-10.44); Carbon Dioxide 33 mmol/L (22-29); Chloride 96 mmol/L (98-107); Estimated GFR-MDRD 87; Globulin 3.6 g/dL (2.4-3.5); Glucose 108 mg/dL (70-105); Lipase 35 U/L (8-78); Potassium 3.7 mmol/L (3.5-5.1); Protein, Total 7.5 g/dL (6.0-8.3); Sodium 135 mmol/L (136-145)
[2020-01-12 14:42] LABS: Band 21 % (5-11); Eosinophils 3 % (0-10); Lymphocytes 31 % (21-51); MDiff Complete? YES; Monocytes 11 % (0-10); Myelocyte 1 % (0-0); Neutrophil 24 % (42-75); Platelet Morphology Comment Appears Adequate; RBC Morphology Normal; Reactive Lymphocytes 6 % (0-10)
--- NOTE | 2020-01-12 16:25 | CT ---
CT APPENDIX PROTOCOL WITH THO AND IV CONTRAST: 01/12/20 HISTORY: FINDINGS: Lung bases are clear. There is fatty infiltration of the liver. The spleen, pancreas and adrenal glan ds and left kidney are normal. No calcified gallstones are seen. There are a couple of 3 mm calculi in the right kidney. No hydroureteronephrosis is seen on either si de. No calculi are seen in the left kidney, either ureter, or the urinary bladder. No free air, free fluid or lymphadenopathy is seen in the abdomen or pelvis. There is a 9 mm periport al lymph node. There are vascular calcifications without evidence of aneurysmal dilatation of the abd ominal aorta. No osteolytic or osteoblastic lesions are seen. The small bowel loops are not abnormally dilated. A normal appearing appendix is present. IMPRESSION: 1. Fatty liver. 2. Nonobstructing tiny right renal calculi. 3. No evidence of appendicitis. POS: [facility]
[2020-01-12 16:39] LABS: Bacteria/HPF None Seen HPF (None Seen); Bilirubin 1+ (Negative); Blood, Urine Negative (Negative); Calcium Oxalate Crystals 1+ HPF (None Seen); Clarity Turbid (Clear); Glucose, Urine (Dipstick) Normal (Negative); Ketone, Urine Negative (Negative); Leukocyte 75 Leu/uL (Negative); Mucous/LPF 1+ LPF (<2+); Nitrite Negative (Negative); Protein, Urine (Dipstick) 50 mg/dL (Neg-Trace); RBC/HPF 0-3 HPF (0-3); Specific Gravity, Urine 1.036 (1.002-1.036); Squamous Epithelial 0-3 HPF (0-3); Urobilinogen 12 mg/dL (Less than 2); pH, Urine 6.5 (5.0-9.0)
== END 2020-01-12 18:14 | disposition home or self-care (01) ==
LOC: ERS 12:26
DX: N39.0 Urinary tract infection, site not specified (principal); R19.7 Diarrhea, unspecified; R10.31 Right lower quadrant pain; I10 Essential (primary) hypertension; I42.9 Cardiomyopathy, unspecified; F17.290 Nicotine dependence, other tobacco product, uncomplicated; F41.9 Anxiety disorder, unspecified; Z79.899 Other long term (current) drug therapy; Z79.891 Long term (current) use of opiate analgesic
CPT/HCPCS: 36415; 74177; 80053; 81003; 81015; 82550; 83690; 85025; 87086; Q9967

== ENCOUNTER 2022-02-10 02:25 | Observation (INO) | payer OTHER, SELFPAY ==
[2022-02-10] MEDS ORDERED: Ondansetron PF 4 MG/2 ML Vial IVP PRN (03:19)
[2022-02-10 03:25] VITALS: BMI 32.0
[2022-02-10] MEDS: Acetaminophen 325 MG TAB PO PRN ×2 (03:36→09:13)
[2022-02-10] MEDS ORDERED: Lorazepam 2 MG/ML VIAL IM PRN (03:57)
[2022-02-10] MEDS ORDERED: Ondansetron ODT 4 MG TAB PO PRN (03:57)
[2022-02-10] MEDS ORDERED: Lorazepam 1 MG TAB PO PRN (03:57)
[2022-02-10 04:00] LABS: Hemoglobin 13.6 g/dL (14.0-18.0); Mean Corpuscular HGB CONC 35.3 g/dL (32.0-36.0); Platelet Count 137 thou/uL (130-400); RBC Distribution Width 11.7 % (11.5-14.5); Red Blood Cell (RBC) Count 3.69 mill/uL (4.70-6.10)
[2022-02-10] MEDS ORDERED: Electrolyte Replacement Protocol 1 EACH FS SCH (04:00)
[2022-02-10 04:14] LABS: Alcohol 198 mg/dL (Less than 10); Magnesium 1.4 mg/dL (1.6-2.6)
[2022-02-10 04:17] LABS: Troponin I 0.026 ng/mL (< 0.028)
[2022-02-10 04:22] LABS: #Basophils 0.1 thou/uL (0.0-0.2); #Monocytes 0.6 thou/uL (0.11-0.59); #Neutrophils 2.4 thou/uL (1.40-6.50); %Basophils 1.6 % (0.0-1.0); %Eosinophils 0.5 % (0.0-10.0); %Lymphocytes 39.2 % (21.0-51.0); %Monocytes 11.4 % (0.0-10.0); %Neutrophils 47.3 % (42.0-75.0)
[2022-02-10] MEDS: Lorazepam 1 MG TAB PO SCH ×4 (04:22→22:09)
[2022-02-10] MEDS ORDERED: Magnesium 2 GM/50 ML(in water) 2 GM in Premix Bag 1 BAG IVPB SCH ×2 (04:45→09:00)
[2022-02-10] MEDS: Thiamine HCl 200 MG/2 ML VIAL SLOW IVP SCH (05:40)
[2022-02-10 06:41] LABS: Anion Gap 20 mmol/L (10-20); BUN (Urea Nitrogen) 15 mg/dL (8.9-20.6); Calc. Creatinine Clearance 164 mL/min (70-130); Calcium 9.7 mg/dL (7.8-10.44); Carbon Dioxide 23 mmol/L (22-29); Chloride 100 mmol/L (98-107); Estimated GFR 110; Glucose 91 mg/dL (70-105); Potassium 3.8 mmol/L (3.5-5.1); Sodium 139 mmol/L (136-145)
[2022-02-10] MEDS: traMADol HCl 50 MG TAB PO PRN ×2 (06:41→16:04)
[2022-02-10 06:43] LABS: ALT (SGPT) 244 U/L (8-55); AST (SGOT) 229 U/L (5-34); Albumin 4.3 g/dL (3.5-5.0); Alkaline Phosphatase 60 U/L (40-110); Bilirubin, Direct 0.4 mg/dL (0.1-0.3); Bilirubin, Total 0.7 mg/dL (0.2-1.2); Protein, Total 7.8 g/dL (6.0-8.3)
[2022-02-10] MEDS: Folic Acid 1 MG TAB PO SCH (09:13)
[2022-02-10] MEDS: Multivit, Therapeutic 1 TAB PO SCH (09:14)
[2022-02-10 10:15] LABS: Amphetamine Detected (NotDetected); Barbiturates Screen Not Detected (NotDetected); Benzodiazepine Screen Not Detected (NotDetected); Cocaine Metabolite Screen Not Detected (NotDetected); Methadone Not Detected (NotDetected); Methamphetamine Not Detected (NotDetected); Opiate Screen Not Detected (NotDetected); Oxycodone Screen Not Detected (NotDetected); Phencyclidine (PCP) Not Detected (NotDetected); THC/Cannabinoid Screen Not Detected (NotDetected); Tricyclic Screen Not Detected (NotDetected)
[2022-02-10] MEDS ORDERED: Carvedilol 6.25 MG TAB PO SCH (10:30)
[2022-02-10] MEDS ORDERED: Furosemide 20 MG TAB PO SCH (10:30)
[2022-02-10] MEDS: Carvedilol 6.25 MG TAB PO SCH (16:03)
[2022-02-11] MEDS ORDERED: Lorazepam 1 MG TAB PO PRN (03:57)
[2022-02-11] MEDS: Thiamine HCl 200 MG/2 ML VIAL SLOW IVP SCH (04:19)
[2022-02-11] MEDS: Lorazepam 1 MG TAB PO SCH ×2 (04:19→09:42)
[2022-02-11 05:18] LABS: Phosphorus 2.6 mg/dL (2.3-4.7)
[2022-02-11 05:28] LABS: ALT (SGPT) 202 U/L (8-55); AST (SGOT) 149 U/L (5-34); Albumin 4.2 g/dL (3.5-5.0); Alkaline Phosphatase 68 U/L (40-110); Anion Gap 17 mmol/L (10-20); BUN (Urea Nitrogen) 13 mg/dL (8.9-20.6); Bilirubin, Total 1.8 mg/dL (0.2-1.2); Calc. Creatinine Clearance 162 mL/min (70-130); Calcium 9.5 mg/dL (7.8-10.44); Carbon Dioxide 27 mmol/L (22-29); Chloride 97 mmol/L (98-107); Estimated GFR 109; Globulin 3.6 g/dL (2.4-3.5); Glucose 87 mg/dL (70-105); Magnesium 1.8 mg/dL (1.6-2.6); Potassium 3.8 mmol/L (3.5-5.1); Protein, Total 7.8 g/dL (6.0-8.3); Sodium 137 mmol/L (136-145)
[2022-02-11 05:30] LABS: Band 5 % (5-11); Eosinophils 3 % (0-10); Hemoglobin 14.8 g/dL (14.0-18.0); Lymphocytes 34 % (21-51); MDiff Complete? YES; Mean Corpuscular HGB CONC 33.7 g/dL (32.0-36.0); Mean Corpuscular Hemoglobin 35.8 pg (27.0-31.0); Mean Platelet Volume 8.9 fL (7.4-10.4); Monocytes 11 % (0-10); Neutrophil 46 % (42-75); Platelet Count 140 thou/uL (130-400); RBC Distribution Width 11.7 % (11.5-14.5); Red Blood Cell (RBC) Count 4.13 mill/uL (4.70-6.10); White Blood Cell (WBC) Count 5.4 thou/uL (4.8-10.8)
[2022-02-11] MEDS ORDERED: Magnesium 2 GM/50 ML(in water) 2 GM in Premix Bag 1 BAG IVPB SCH (08:00)
[2022-02-11] MEDS ORDERED: Furosemide 20 MG TAB PO SCH (09:00)
[2022-02-11] MEDS: Acetaminophen 325 MG TAB PO PRN (09:30)
[2022-02-11] MEDS: Folic Acid 1 MG TAB PO SCH (09:30)
[2022-02-11] MEDS: Multivit, Therapeutic 1 TAB PO SCH (09:32)
[2022-02-11] MEDS: Carvedilol 6.25 MG TAB PO SCH (09:33)
[2022-02-11 11:22] VITALS: BP 118/71; TEMP 98.2
[2022-02-12] MEDS ORDERED: Lorazepam 1 MG TAB PO PRN (03:57)
[2022-02-12] MEDS ORDERED: Lorazepam 0.5 MG TAB PO SCH (04:00)
[2022-02-13] MEDS ORDERED: Lorazepam 0.5 MG TAB PO PRN (03:57)
[2022-02-13] MEDS ORDERED: Thiamine 100 MG TAB PO SCH (09:00)
== END 2022-02-11 15:22 | disposition home or self-care (01) ==
LOC: 2SW 02:37
PROVIDERS: ADMIT Internal Medicine; ATTEND Internal Medicine
DX: R55 Syncope and collapse (principal); F10.229 Alcohol dependence with intoxication, unspecified; I50.22 Chronic systolic (congestive) heart failure; I47.2 Ventricular tachycardia; K21.9 Gastro-esophageal reflux disease without esophagitis; I42.8 Other cardiomyopathies; I44.7 Left bundle-branch block, unspecified; E83.42 Hypomagnesemia; K70.10 Alcoholic hepatitis without ascites; N18.2 Chronic kidney disease, stage 2 (mild); D75.89 Other specified diseases of blood and blood-forming organs; S01.112A Laceration without foreign body of left eyelid and periocular area, initial encounter; F17.210 Nicotine dependence, cigarettes, uncomplicated; F17.290 Nicotine dependence, other tobacco product, uncomplicated; I34.0 Nonrheumatic mitral (valve) insufficiency; E66.9 Obesity, unspecified; Z68.32 Body mass index [BMI] 32.0-32.9, adult; Z91.14 Patient's other noncompliance with medication regimen; Z79.899 Other long term (current) drug therapy; Z88.5 Allergy status to narcotic agent; Z95.810 Presence of automatic (implantable) cardiac defibrillator; Z20.822 Contact with and (suspected) exposure to COVID-19; W19.XXXA Unspecified fall, initial encounter; Y90.6 Blood alcohol level of 120-199 mg/100 ml
CPT/HCPCS: 36415; 80048; 80053; 80076; 80306; 80307; 83735; 83880; 84100; 84484; 85025; 93306; 96374; 96375; 96376; G0378; J3411; J3475; U0003; U0005

== ENCOUNTER 2022-02-27 20:32 | Inpatient (IN) | payer OTHER ==
[2022-02-27] MEDS ORDERED: Ondansetron PF 4 MG/2 ML Vial ONE (21:03)
[2022-02-27] MEDS ORDERED: Ketorolac Tromethamine 30 MG/ML VIAL ONE (21:03)
[2022-02-27] MEDS ORDERED: Midazolam HCl 2 mg/2 ml Vial ONE ×2 (21:03→21:42)
[2022-02-27] MEDS ORDERED: Magnesium 2 GM/50 ML BAG (IN WATER) ONE (21:03)
[2022-02-27 21:07] LABS: #Lymphocytes 0.7 thou/uL (1.20-3.40); #Monocytes 0.9 thou/uL (0.11-0.59); #Neutrophils 12.7 thou/uL (1.40-6.50); %Basophils 0.1 % (0.0-1.0); %Eosinophils 0.1 % (0.0-10.0); %Lymphocytes 4.6 % (21.0-51.0); %Monocytes 6.2 % (0.0-10.0); %Neutrophils 89.1 % (42.0-75.0); Hemoglobin 14.4 g/dL (14.0-18.0); Mean Corpuscular HGB CONC 34.5 g/dL (32.0-36.0); Mean Corpuscular Hemoglobin 35.9 pg (27.0-31.0); Mean Platelet Volume 8.7 fL (7.4-10.4); Platelet Count 129 thou/uL (130-400); RBC Distribution Width 11.8 % (11.5-14.5); Red Blood Cell (RBC) Count 4.02 mill/uL (4.70-6.10); White Blood Cell (WBC) Count 14.2 thou/uL (4.8-10.8)
[2022-02-27] MEDS ORDERED: Promethazine HCl 25 MG in Sodium Chloride 0.9% 50 ML IVPB SCH (21:15)
[2022-02-27 21:31] LABS: ALT (SGPT) 83 U/L (8-55); AST (SGOT) 65 U/L (5-34); Albumin 4.4 g/dL (3.5-5.0); Alkaline Phosphatase 69 U/L (40-110); Anion Gap 25 mmol/L (10-20); BUN (Urea Nitrogen) 8 mg/dL (8.9-20.6); Bilirubin, Total 1.7 mg/dL (0.2-1.2); Calc. Creatinine Clearance 0 mL/min (70-130); Calcium 9.5 mg/dL (7.8-10.44); Carbon Dioxide 20 mmol/L (22-29); Chloride 99 mmol/L (98-107); Estimated GFR 110; Globulin 3.4 g/dL (2.4-3.5); Glucose 85 mg/dL (70-105); Lipase 24 U/L (8-78); Potassium 3.8 mmol/L (3.5-5.1); Protein, Total 7.8 g/dL (6.0-8.3); Sodium 140 mmol/L (136-145)
[2022-02-27 21:32] LABS: PTT 31.3 sec (22.9-36.1); Prothrombin Time 13.1 sec (12.0-14.7)
[2022-02-27 21:39] LABS: Magnesium 0.8 mg/dL (1.6-2.6)
[2022-02-27] MEDS ORDERED: Multivitamins, Adult 10 ML, Thiamine HCl 100 MG, Folic Acid 1 MG in Dextrose 5 %-0.45 %... IV SCH (21:45)
[2022-02-27 21:50] LABS: CKMB 0.5 ng/mL (0-6.6)
[2022-02-27 21:56] LABS: Acetaminophen Less than 10.0 mcg/mL (10.0-30.0); Alcohol Less than 10 mg/dL (Less than 10); Salicylate Less than 8.0 mg/dL (15.0-30.0)
[2022-02-27 22:25] LABS: SARS-CoV-2 NAA Rapid Test Not Detected (NotDetected)
[2022-02-27] MEDS ORDERED: Acetaminophen 500 MG TAB ONE (23:35)
[2022-02-27] MEDS ORDERED: Piperacillin/Tazobactam 3.375 GM VIAL ONE (23:35)
[2022-02-27] MEDS ORDERED: Ibuprofen 200 MG TAB ONE (23:35)
[2022-02-27] MEDS ORDERED: Vancomycin 1 GM/200 ML BAG ONE (23:35)
[2022-02-27] MEDS ORDERED: Lorazepam 2 MG/ML VIAL IM PRN (23:36)
[2022-02-27] MEDS ORDERED: Lorazepam 1 MG TAB PO PRN (23:36)
[2022-02-27] MEDS ORDERED: Ondansetron PF 4 MG/2 ML Vial IVP PRN (23:36)
[2022-02-27] MEDS ORDERED: Ondansetron ODT 4 MG TAB PO PRN (23:36)
[2022-02-27] MEDS ORDERED: Electrolyte Replacement Protocol 1 EACH FS SCH (23:45)
[2022-02-27] MEDS ORDERED: Metoprolol Tartrate 5 MG/5 ML VIAL ONE (23:51)
[2022-02-28 00:01] LABS: Amphetamine Detected (NotDetected); Barbiturates Screen Not Detected (NotDetected); Benzodiazepine Screen Not Detected (NotDetected); Cocaine Metabolite Screen Not Detected (NotDetected); Methadone Not Detected (NotDetected); Methamphetamine Not Detected (NotDetected); Opiate Screen Not Detected (NotDetected); Oxycodone Screen Not Detected (NotDetected); Phencyclidine (PCP) Not Detected (NotDetected); THC/Cannabinoid Screen Detected (NotDetected); Tricyclic Screen Not Detected (NotDetected)
[2022-02-28 00:02] LABS: Bacteria/HPF None Seen HPF (None Seen); Bilirubin 1+ (Negative); Blood, Urine Negative (Negative); Clarity Clear (Clear); Glucose, Urine (Dipstick) 50 mg/dL (Negative); Ketone, Urine Greater than 150 mg/dL (Negative); Leukocyte Negative Leu/uL (Negative); Nitrite Negative (Negative); Protein, Urine (Dipstick) 200 mg/dL (Neg-Trace); Squamous Epithelial 0-3 HPF (0-3); Urobilinogen 6 mg/dL (Less than 2); WBC/HPF 0-3 HPF (0-3); pH, Urine 6.5 (5.0-9.0)
[2022-02-28 00:06] LABS: Specific Gravity, Urine Greater than 1.060 (1.002-1.036)
[2022-02-28 00:09] LABS: #Lymphocytes 0.5 thou/uL (1.20-3.40); #Monocytes 0.6 thou/uL (0.11-0.59); #Neutrophils 10.8 thou/uL (1.40-6.50); %Basophils 0.1 % (0.0-1.0); %Eosinophils 0.1 % (0.0-10.0); %Lymphocytes 4.4 % (21.0-51.0); %Monocytes 5.1 % (0.0-10.0); %Neutrophils 90.3 % (42.0-75.0); Hemoglobin 13.3 g/dL (14.0-18.0); Mean Corpuscular HGB CONC 34.5 g/dL (32.0-36.0); Mean Corpuscular Hemoglobin 36.1 pg (27.0-31.0); Mean Platelet Volume 8.5 fL (7.4-10.4); Platelet Count 105 thou/uL (130-400); RBC Distribution Width 11.7 % (11.5-14.5); Red Blood Cell (RBC) Count 3.68 mill/uL (4.70-6.10)
[2022-02-28] MEDS ORDERED: Magnesium Sulfate In Water 4 GM in Premix Bag 1 BAG IVPB SCH (00:15)
[2022-02-28 00:17] LABS: Lactic Acid 1.5 mmol/L (0.5-2.2)
[2022-02-28 00:21] LABS: Phosphorus 2.1 mg/dL (2.3-4.7)
[2022-02-28] MEDS ORDERED: Midazolam HCl 2 mg/2 ml Vial ONE (00:23)
[2022-02-28] MEDS: Lorazepam 1 MG TAB PO SCH ×2 (01:28→05:58)
[2022-02-28] MEDS: Dextrose 5 % And 0.9 % NaCl 1,000 ML IV SCH (01:28)
[2022-02-28] MEDS: Nicotine 21 MG PATCH TD SCH ×2 (01:29→20:51)
[2022-02-28] MEDS: Thiamine HCl 200 MG/2 ML VIAL SLOW IVP SCH (01:29)
[2022-02-28] MEDS ORDERED: Vancomycin 1 GM in Premix Bag 1 BAG IVPB SCH (02:30)
[2022-02-28 04:01] LABS: ALT (SGPT) 68 U/L (8-55); AST (SGOT) 50 U/L (5-34); Albumin 3.8 g/dL (3.5-5.0); Alkaline Phosphatase 58 U/L (40-110); Anion Gap 15 mmol/L (10-20); BUN (Urea Nitrogen) 10 mg/dL (8.9-20.6); Bilirubin, Total 1.5 mg/dL (0.2-1.2); Calc. Creatinine Clearance 161 mL/min (70-130); Calcium 8.9 mg/dL (7.8-10.44); Carbon Dioxide 22 mmol/L (22-29); Chloride 102 mmol/L (98-107); Estimated GFR 109; Globulin 3.2 g/dL (2.4-3.5); Glucose 117 mg/dL (70-105); Potassium 3.3 mmol/L (3.5-5.1); Sodium 136 mmol/L (136-145)
[2022-02-28 04:33] LABS: #Lymphocytes 0.6 thou/uL (1.20-3.40); #Monocytes 0.6 thou/uL (0.11-0.59); #Neutrophils 9.8 thou/uL (1.40-6.50); %Basophils 0.1 % (0.0-1.0); %Eosinophils 0.1 % (0.0-10.0); %Lymphocytes 5.4 % (21.0-51.0); %Monocytes 5.6 % (0.0-10.0); %Neutrophils 88.8 % (42.0-75.0); Mean Corpuscular Hemoglobin 36.8 pg (27.0-31.0); Mean Platelet Volume 8.7 fL (7.4-10.4); Platelet Count 108 thou/uL (130-400); RBC Distribution Width 11.6 % (11.5-14.5); Red Blood Cell (RBC) Count 3.52 mill/uL (4.70-6.10)
[2022-02-28] MEDS ORDERED: Lorazepam (BATCHED) 2 MG/ML SYR IM PRN (06:52)
[2022-02-28] MEDS ORDERED: Potassium Chloride 20 MEQ TAB PO SCH (08:00)
[2022-02-28] MEDS: Acetaminophen 325 MG TAB PO PRN ×3 (08:27→18:06)
[2022-02-28] MEDS: Enoxaparin Sodium 30 MG/0.3 ML SYRINGE SC SCH (08:29)
[2022-02-28] MEDS: Folic Acid 1 MG TAB PO SCH (08:29)
[2022-02-28] MEDS: Carvedilol 6.25 MG TAB PO SCH ×2 (08:29→18:07)
[2022-02-28] MEDS: Famotidine 20 MG TAB PO SCH ×2 (08:30→20:51)
[2022-02-28] MEDS: Furosemide 20 MG TAB PO SCH (08:30)
[2022-02-28 08:59] LABS: CKMB 0.8 ng/mL (0-6.6)
[2022-02-28] MEDS ORDERED: Cefepime 1 GM in Sodium Chloride 0.9% 100 ML IVPB SCH (09:00)
[2022-02-28] MEDS ORDERED: Multivit, Therapeutic 1 TAB PO SCH (09:00)
[2022-02-28 11:13] LABS: Syphilis Antibody Nonreactive (Nonreactive); Syphilis Antibody Index 0.08 S/CO (<1.00 Non-Reactive)
[2022-02-28] MEDS: Vancomycin 1.5 GRAM/300 ML BAG 1.5 GM in Premix Bag 1 BAG IVPB SCH ×2 (13:37→22:35)
[2022-02-28] MEDS: Cefepime 2 GM in Sodium Chloride 0.9% 100 ML IVPB SCH (20:51)
[2022-02-28] MEDS: Multivitamins, Adult 10 ML, Folic Acid 1 MG, Thiamine HCl 100 MG in Dextrose 5 %-0.45 %... IV SCH (22:35)
[2022-03-01] MEDS ORDERED: Furosemide 40 MG/4 ML VIAL SLOW IVP SCH (00:45)
[2022-03-01] MEDS: Acetaminophen 325 MG TAB PO PRN ×2 (00:57→15:22)
[2022-03-01] MEDS: Lorazepam 1 MG TAB PO PRN ×2 (00:58→04:46)
[2022-03-01 02:01] LABS: ALT (SGPT) 73 U/L (8-55); AST (SGOT) 78 U/L (5-34); Albumin 3.7 g/dL (3.5-5.0); Alkaline Phosphatase 65 U/L (40-110); Anion Gap 17 mmol/L (10-20); BUN (Urea Nitrogen) 11 mg/dL (8.9-20.6); Bilirubin, Total 1.8 mg/dL (0.2-1.2); Calc. Creatinine Clearance 161 mL/min (70-130); Calcium 8.3 mg/dL (7.8-10.44); Carbon Dioxide 20 mmol/L (22-29); Chloride 102 mmol/L (98-107); Estimated GFR 109; Globulin 3.4 g/dL (2.4-3.5); Glucose 116 mg/dL (70-105); Magnesium 1.4 mg/dL (1.6-2.6); Potassium 3.7 mmol/L (3.5-5.1); Protein, Total 7.1 g/dL (6.0-8.3); Sodium 135 mmol/L (136-145)
[2022-03-01] MEDS: Dextrose 5 % And 0.9 % NaCl 1,000 ML IV SCH (02:40)
[2022-03-01 04:01] LABS: Vancomycin, Trough 19.4 ug/mL
[2022-03-01 04:02] LABS: #Lymphocytes 0.8 thou/uL (1.20-3.40); #Monocytes 0.4 thou/uL (0.11-0.59); #Neutrophils 10.2 thou/uL (1.40-6.50); %Basophils 0.4 % (0.0-1.0); %Eosinophils 0.3 % (0.0-10.0); %Lymphocytes 7.1 % (21.0-51.0); %Monocytes 3.5 % (0.0-10.0); %Neutrophils 88.8 % (42.0-75.0); Hemoglobin 13.2 g/dL (14.0-18.0); Mean Corpuscular HGB CONC 33.3 g/dL (32.0-36.0); Mean Corpuscular Hemoglobin 36.3 pg (27.0-31.0); Mean Platelet Volume 9.9 fL (7.4-10.4); Platelet Count 113 thou/uL (130-400); Red Blood Cell (RBC) Count 3.65 mill/uL (4.70-6.10); White Blood Cell (WBC) Count 11.5 thou/uL (4.8-10.8)
[2022-03-01 04:06] LABS: ALT (SGPT) 73 U/L (8-55); AST (SGOT) 74 U/L (5-34); Albumin 3.6 g/dL (3.5-5.0); Alkaline Phosphatase 60 U/L (40-110); Anion Gap 18 mmol/L (10-20); BUN (Urea Nitrogen) 11 mg/dL (8.9-20.6); Bilirubin, Total 1.9 mg/dL (0.2-1.2); Calc. Creatinine Clearance 159 mL/min (70-130); Calcium 8.4 mg/dL (7.8-10.44); Carbon Dioxide 19 mmol/L (22-29); Chloride 100 mmol/L (98-107); Estimated GFR 109; Globulin 3.2 g/dL (2.4-3.5); Glucose 104 mg/dL (70-105); Magnesium 1.3 mg/dL (1.6-2.6); Potassium 3.6 mmol/L (3.5-5.1); Protein, Total 6.8 g/dL (6.0-8.3); Sodium 133 mmol/L (136-145)
[2022-03-01 04:07] LABS: Phosphorus 1.3 mg/dL (2.3-4.7)
[2022-03-01] MEDS: Thiamine HCl 200 MG/2 ML VIAL SLOW IVP SCH ×3 (04:46→18:00)
[2022-03-01] MEDS: Vancomycin 1.5 GRAM/300 ML BAG 1.5 GM in Premix Bag 1 BAG IVPB SCH (04:48)
[2022-03-01] MEDS ORDERED: Magnesium Sulfate In Water 4 GM in Premix Bag 1 BAG IVPB SCH (05:00)
[2022-03-01] MEDS ORDERED: Potassium Phosphate 22 MMOL in Sodium Chloride 0.9% 250 ML 250 ML IVPB SCH (05:00)
[2022-03-01] MEDS: VANCOMYCIN 1.25 GM/250 ML BAG 1.25 GM in Premix Bag 1 BAG IVPB SCH ×3 (05:07→21:30)
[2022-03-01] MEDS: Multivitamins, Adult 10 ML, Folic Acid 1 MG, Thiamine HCl 100 MG in Dextrose 5 %-0.45 %... IV SCH (07:06)
[2022-03-01 08:16] LABS: Actual Bicarbonate (HCO3a) 21.6 mEq/L (22-28); Base Excess (BEa) -1.1 mEq/L (-2.0 to +3.0); CO2 Tension 30.7 mmHg (35.0-45.0); Calcium, Ionized (arterial) 1.06 mmol/L (1.12-1.30); Carboxyhemoglobin (COHb) 0.6 gm% (0.0-3.0); Hemoglobin (Hb) 13.2 g/dL (14.0-18.0); O2 Tension (PaO2), arterial 93.5 mmHg (80.0-100.0); Potassium - ABG Lab 4.02 mmol/L (3.70-5.30); pH, Arterial 7.47 (7.35-7.45)
[2022-03-01 08:18] LABS: ALV-art Gradient 17.855 mmHg (0-20); Puncture Site RRA
[2022-03-01] MEDS ORDERED: Midodrine HCl 5 MG TAB PO SCH (09:00)
[2022-03-01] MEDS ORDERED: Sodium Bicarb 50 MEQ/50 ML VIAL IVP SCH (09:00)
[2022-03-01] MEDS: Carvedilol 6.25 MG TAB PO SCH ×2 (09:13→17:01)
[2022-03-01] MEDS: chlordiazePOXIDE HCl 25 MG CAP PO SCH ×3 (09:14→21:26)
[2022-03-01] MEDS: Enoxaparin Sodium 30 MG/0.3 ML SYRINGE SC SCH (09:14)
[2022-03-01] MEDS: Famotidine 20 MG TAB PO SCH ×2 (09:14→21:26)
[2022-03-01] MEDS: Furosemide 20 MG TAB PO SCH (09:15)
[2022-03-01] MEDS: Folic Acid 1 MG TAB PO SCH (09:15)
[2022-03-01] MEDS: Multivitamins, Adult 10 ML in Dextrose 5 % And 0.9 % NaCl 1,000 ML IV SCH (09:15)
[2022-03-01] MEDS: Cefepime 2 GM in Sodium Chloride 0.9% 100 ML IVPB SCH (09:25)
[2022-03-01] MEDS ORDERED: Piperacillin/Tazobactam 3.375 GM in Sodium Chloride 0.9% 100 ML IVPB SCH (09:30)
[2022-03-01] MEDS: Piperacillin/Tazobactam 3.375 GM in Sodium Chloride 0.9% 100 ML IVPB SCH ×2 (14:00→22:12)
[2022-03-01 14:41] LABS: Anion Gap 16 mmol/L (10-20); BUN (Urea Nitrogen) 14 mg/dL (8.9-20.6); Calc. Creatinine Clearance 150 mL/min (70-130); Calcium 8.3 mg/dL (7.8-10.44); Carbon Dioxide 25 mmol/L (22-29); Chloride 99 mmol/L (98-107); Estimated GFR 105; Glucose 84 mg/dL (70-105); Magnesium 2.2 mg/dL (1.6-2.6); Potassium 4.1 mmol/L (3.5-5.1); Sodium 136 mmol/L (136-145)
[2022-03-01] MEDS ORDERED: Lactated Ringer's 1,000 ML IV SCH (15:30)
[2022-03-01] MEDS ORDERED: NOREPINEPHRINE 8 MG/250 ML-D5W 250 ML IVPB SCH (17:15)
[2022-03-01] MEDS ORDERED: DOBUTamine 500 mg/250 ml 250 ML IVPB SCH (19:45)
[2022-03-01] MEDS: Lactated Ringer's 1,000 ML IV SCH (20:29)
[2022-03-01] MEDS: Nicotine 21 MG PATCH TD SCH (23:32)
[2022-03-01] MEDS ORDERED: Lorazepam 0.5 MG TAB PO SCH (23:45)
[2022-03-02] MEDS: Lorazepam 1 MG TAB PO PRN ×4 (00:45→18:47)
[2022-03-02] MEDS: Thiamine HCl 200 MG/2 ML VIAL SLOW IVP SCH ×3 (01:15→18:47)
[2022-03-02] MEDS: Lactated Ringer's 1,000 ML IV SCH (03:30)
[2022-03-02 05:08] LABS: ALT (SGPT) 59 U/L (8-55); AST (SGOT) 50 U/L (5-34); Albumin 3.1 g/dL (3.5-5.0); Alkaline Phosphatase 61 U/L (40-110); Anion Gap 17 mmol/L (10-20); BUN (Urea Nitrogen) 14 mg/dL (8.9-20.6); Bilirubin, Total 1.7 mg/dL (0.2-1.2); Calc. Creatinine Clearance 184 mL/min (70-130); Calcium 7.8 mg/dL (7.8-10.44); Carbon Dioxide 22 mmol/L (22-29); Chloride 102 mmol/L (98-107); Estimated GFR 113; Globulin 2.8 g/dL (2.4-3.5); Glucose 101 mg/dL (70-105); Magnesium 1.9 mg/dL (1.6-2.6); Phosphorus 1.6 mg/dL (2.3-4.7); Potassium 4.4 mmol/L (3.5-5.1); Protein, Total 5.9 g/dL (6.0-8.3); Sodium 137 mmol/L (136-145)
[2022-03-02 05:15] LABS: Vancomycin, Trough 19.3 ug/mL
[2022-03-02] MEDS ORDERED: Magnesium 2 GM/50 ML(in water) 2 GM in Premix Bag 1 BAG IVPB SCH (05:30)
[2022-03-02] MEDS: VANCOMYCIN 1.25 GM/250 ML BAG 1.25 GM in Premix Bag 1 BAG IVPB SCH ×3 (05:31→20:20)
[2022-03-02 05:32] LABS: Band 14 % (5-11); Hemoglobin 12.2 g/dL (14.0-18.0); Lymphocytes 35 % (21-51); MDiff Complete? YES; Macrocytosis SLIGHT = 6-15 cells (100X) (0-5/hpf); Mean Corpuscular HGB CONC 32.6 g/dL (32.0-36.0); Mean Corpuscular Hemoglobin 35.3 pg (27.0-31.0); Mean Platelet Volume 10.8 fL (7.4-10.4); Monocytes 11 % (0-10); Neutrophil 40 % (42-75); Platelet Count 90 thou/uL (130-400); Platelet Morphology Comment Appears Decreased; RBC Distribution Width 11.9 % (11.5-14.5); Red Blood Cell (RBC) Count 3.46 mill/uL (4.70-6.10); White Blood Cell (WBC) Count 8.5 thou/uL (4.8-10.8)
[2022-03-02] MEDS: Acetaminophen 325 MG TAB PO PRN ×2 (05:32→20:19)
[2022-03-02] MEDS ORDERED: Potassium Phosphate 15 MMOL in Sodium Chloride 0.9% 100 ML IVPB SCH (06:00)
[2022-03-02] MEDS: Piperacillin/Tazobactam 3.375 GM in Sodium Chloride 0.9% 100 ML IVPB SCH ×3 (06:52→22:04)
[2022-03-02] MEDS: Enoxaparin Sodium 30 MG/0.3 ML SYRINGE SC SCH (08:45)
[2022-03-02] MEDS: Folic Acid 1 MG TAB PO SCH (08:46)
[2022-03-02] MEDS: chlordiazePOXIDE HCl 25 MG CAP PO SCH ×3 (08:46→20:20)
[2022-03-02] MEDS: Famotidine 20 MG TAB PO SCH ×2 (08:47→20:20)
[2022-03-02] MEDS: Multivitamins, Adult 10 ML in Dextrose 5 % And 0.9 % NaCl 1,000 ML IV SCH (09:36)
[2022-03-02] MEDS: Milrinone Lactate/D5W 20 MG in Premix Bag 1 BAG IVPB SCH ×2 (10:39→20:34)
[2022-03-02] MEDS: Loperamide HCl 2 MG CAP PO PRN (14:43)
[2022-03-02] MEDS ORDERED: Tamsulosin HCl 0.4 MG CAP PO SCH (16:15)
[2022-03-02] MEDS: Nicotine 21 MG PATCH TD SCH (23:00)
[2022-03-03] MEDS: Thiamine HCl 200 MG/2 ML VIAL SLOW IVP SCH ×3 (00:55→16:49)
[2022-03-03 04:42] LABS: #Eosinphils 0.1 thou/uL (0.0-0.7); #Lymphocytes 1.6 thou/uL (1.20-3.40); #Neutrophils 6.2 thou/uL (1.40-6.50); %Basophils 0.5 % (0.0-1.0); %Eosinophils 1.2 % (0.0-10.0); %Lymphocytes 17.5 % (21.0-51.0); %Monocytes 11.3 % (0.0-10.0); %Neutrophils 69.5 % (42.0-75.0); Hemoglobin 12.1 g/dL (14.0-18.0); Mean Corpuscular HGB CONC 36.9 g/dL (32.0-36.0); Mean Corpuscular Hemoglobin 39.7 pg (27.0-31.0); Mean Platelet Volume 9.7 fL (7.4-10.4); Platelet Count 94 thou/uL (130-400); RBC Distribution Width 11.7 % (11.5-14.5); Red Blood Cell (RBC) Count 3.04 mill/uL (4.70-6.10)
[2022-03-03 05:01] LABS: Magnesium 1.7 mg/dL (1.6-2.6)
[2022-03-03 05:08] LABS: ALT (SGPT) 55 U/L (8-55); AST (SGOT) 42 U/L (5-34); Albumin 3.2 g/dL (3.5-5.0); Alkaline Phosphatase 70 U/L (40-110); Anion Gap 15 mmol/L (10-20); BUN (Urea Nitrogen) 10 mg/dL (8.9-20.6); Bilirubin, Total 2.1 mg/dL (0.2-1.2); Calc. Creatinine Clearance 168 mL/min (70-130); Calcium 8.6 mg/dL (7.8-10.44); Carbon Dioxide 24 mmol/L (22-29); Chloride 102 mmol/L (98-107); Estimated GFR 110; Globulin 3.3 g/dL (2.4-3.5); Glucose 97 mg/dL (70-105); Potassium 3.9 mmol/L (3.5-5.1); Protein, Total 6.5 g/dL (6.0-8.3); Sodium 137 mmol/L (136-145)
[2022-03-03 05:16] LABS: Phosphorus 1.5 mg/dL (2.3-4.7)
[2022-03-03] MEDS: Milrinone Lactate/D5W 20 MG in Premix Bag 1 BAG IVPB SCH ×2 (05:23→15:21)
[2022-03-03] MEDS: Piperacillin/Tazobactam 3.375 GM in Sodium Chloride 0.9% 100 ML IVPB SCH ×3 (05:23→21:14)
[2022-03-03 05:35] LABS: Vancomycin, Trough 21.2 ug/mL
[2022-03-03] MEDS: VANCOMYCIN 1.25 GM/250 ML BAG 1.25 GM in Premix Bag 1 BAG IVPB SCH (05:45)
[2022-03-03] MEDS: Labetalol HCl 100 MG/20 ML VIAL SLOW IVP PRN (06:07)
[2022-03-03] MEDS: VANCOMYCIN 1.75 GM/500 ML BAG 1.75 GM in Premix Bag 1 BAG IVPB SCH ×2 (06:07→17:04)
[2022-03-03] MEDS ORDERED: Magnesium 2 GM/50 ML(in water) 2 GM in Premix Bag 1 BAG IVPB SCH (08:00)
[2022-03-03] MEDS: Folic Acid 1 MG TAB PO SCH (08:35)
[2022-03-03] MEDS: chlordiazePOXIDE HCl 25 MG CAP PO SCH ×3 (08:35→20:11)
[2022-03-03] MEDS: Famotidine 20 MG TAB PO SCH ×2 (08:35→20:11)
[2022-03-03] MEDS: PHOS-NAK 1 PKT PACK PO SCH ×4 (08:40→20:10)
[2022-03-03] MEDS: Enoxaparin Sodium 30 MG/0.3 ML SYRINGE SC SCH (08:42)
[2022-03-03] MEDS ORDERED: Thiamine 100 MG TAB PO SCH (09:00)
[2022-03-03] MEDS: Diazepam 10 MG/2 ML SYRINGE IVP SCH ×2 (16:13→16:35)
[2022-03-03] MEDS ORDERED: Diazepam 10 MG/2 ML SYRINGE ONE (16:18)
[2022-03-03] MEDS: Dexmedetomidine 1,000 MCG in Sodium Chloride 0.9% 250 ML 240 ML IVPB SCH (20:10)
[2022-03-03] MEDS: Nicotine 21 MG PATCH TD SCH (23:55)
[2022-03-04] MEDS: Thiamine HCl 200 MG/2 ML VIAL SLOW IVP SCH ×3 (01:31→17:21)
[2022-03-04] MEDS: Dexmedetomidine 1,000 MCG in Sodium Chloride 0.9% 250 ML 240 ML IVPB SCH ×3 (02:44→17:27)
[2022-03-04] MEDS: Milrinone Lactate/D5W 20 MG in Premix Bag 1 BAG IVPB SCH ×3 (02:44→23:33)
[2022-03-04] MEDS: Diazepam 10 MG/2 ML SYRINGE IVP SCH ×4 (04:08→08:35)
[2022-03-04 04:58] LABS: #Eosinphils 0.1 thou/uL (0.0-0.7); #Lymphocytes 1.2 thou/uL (1.20-3.40); #Neutrophils 5.4 thou/uL (1.40-6.50); %Basophils 0.3 % (0.0-1.0); %Eosinophils 1.3 % (0.0-10.0); %Monocytes 13.5 % (0.0-10.0); Hemoglobin 11.2 g/dL (14.0-18.0); Mean Corpuscular HGB CONC 33.8 g/dL (32.0-36.0); Mean Corpuscular Hemoglobin 36.4 pg (27.0-31.0); Mean Platelet Volume 9.7 fL (7.4-10.4); Platelet Count 125 thou/uL (130-400); RBC Distribution Width 11.7 % (11.5-14.5); Red Blood Cell (RBC) Count 3.08 mill/uL (4.70-6.10); White Blood Cell (WBC) Count 7.8 thou/uL (4.8-10.8)
[2022-03-04 05:05] LABS: ALT (SGPT) 44 U/L (8-55); AST (SGOT) 37 U/L (5-34); Albumin 3.2 g/dL (3.5-5.0); Alkaline Phosphatase 68 U/L (40-110); Anion Gap 18 mmol/L (10-20); BUN (Urea Nitrogen) 8 mg/dL (8.9-20.6); Bilirubin, Total 1.7 mg/dL (0.2-1.2); Calc. Creatinine Clearance 151 mL/min (70-130); Calcium 8.4 mg/dL (7.8-10.44); Carbon Dioxide 22 mmol/L (22-29); Chloride 105 mmol/L (98-107); Estimated GFR 101; Globulin 3.5 g/dL (2.4-3.5); Glucose 117 mg/dL (70-105); Potassium 3.9 mmol/L (3.5-5.1); Protein, Total 6.7 g/dL (6.0-8.3); Sodium 141 mmol/L (136-145)
[2022-03-04] MEDS: Piperacillin/Tazobactam 3.375 GM in Sodium Chloride 0.9% 100 ML IVPB SCH ×3 (05:53→22:58)
[2022-03-04] MEDS: VANCOMYCIN 1.75 GM/500 ML BAG 1.75 GM in Premix Bag 1 BAG IVPB SCH ×2 (05:54→18:18)
[2022-03-04] MEDS ORDERED: Diazepam 10 MG/2 ML SYRINGE IVP PRN (08:10)
[2022-03-04] MEDS ORDERED: Ziprasidone 20 MG VIAL IM SCH (09:45)
[2022-03-04] MEDS ORDERED: Sterile Water 10 ML VIAL FS PRN (09:45)
[2022-03-04] MEDS: Enoxaparin Sodium 30 MG/0.3 ML SYRINGE SC SCH (10:39)
[2022-03-04] MEDS: chlordiazePOXIDE HCl 25 MG CAP PO SCH (10:39)
[2022-03-04] MEDS: Folic Acid 1 MG TAB PO SCH (10:40)
[2022-03-04] MEDS: Famotidine 20 MG TAB PO SCH ×2 (10:40→20:19)
[2022-03-04 17:33] LABS: Vancomycin, Trough 19.4 ug/mL
[2022-03-04] MEDS ORDERED: Racepinephrine 2.25% 0.5 ML NEB ONE (18:11)
[2022-03-04] MEDS: Acetaminophen 325 MG TAB PO PRN (20:20)
[2022-03-04] MEDS: Nicotine 21 MG PATCH TD SCH (22:59)
[2022-03-05] MEDS: Dexmedetomidine 1,000 MCG in Sodium Chloride 0.9% 250 ML 240 ML IVPB SCH ×2 (00:15→08:38)
[2022-03-05] MEDS: Thiamine HCl 200 MG/2 ML VIAL SLOW IVP SCH ×3 (01:32→17:31)
[2022-03-05] MEDS: Piperacillin/Tazobactam 3.375 GM in Sodium Chloride 0.9% 100 ML IVPB SCH ×3 (06:23→22:12)
[2022-03-05] MEDS: VANCOMYCIN 1.75 GM/500 ML BAG 1.75 GM in Premix Bag 1 BAG IVPB SCH (06:26)
[2022-03-05 07:03] LABS: ALT (SGPT) 35 U/L (8-55); AST (SGOT) 30 U/L (5-34); Albumin 2.9 g/dL (3.5-5.0); Alkaline Phosphatase 64 U/L (40-110); Anion Gap 14 mmol/L (10-20); BUN (Urea Nitrogen) 5 mg/dL (8.9-20.6); Bilirubin, Total 1.1 mg/dL (0.2-1.2); Calc. Creatinine Clearance 174 mL/min (70-130); Calcium 8.8 mg/dL (7.8-10.44); Carbon Dioxide 22 mmol/L (22-29); Chloride 108 mmol/L (98-107); Estimated GFR 109; Globulin 3.3 g/dL (2.4-3.5); Glucose 127 mg/dL (70-105); Magnesium 1.6 mg/dL (1.6-2.6); Potassium 3.8 mmol/L (3.5-5.1); Protein, Total 6.2 g/dL (6.0-8.3); Sodium 140 mmol/L (136-145)
[2022-03-05 07:33] LABS: Band 10 % (5-11); Eosinophils 5 % (0-10); Hemoglobin 10.6 g/dL (14.0-18.0); Lymphocytes 30 % (21-51); MDiff Complete? YES; Macrocytosis SLIGHT = 6-15 cells (100X) (0-5/hpf); Mean Corpuscular HGB CONC 33.9 g/dL (32.0-36.0); Mean Corpuscular Hemoglobin 36.7 pg (27.0-31.0); Mean Platelet Volume 9.6 fL (7.4-10.4); Monocytes 5 % (0-10); Neutrophil 50 % (42-75); Platelet Count 148 thou/uL (130-400); Platelet Morphology Comment Appears Adequate; Polychromasia SLIGHT = 2-3 cells (100X) (0-2/hpf); RBC Distribution Width 11.9 % (11.5-14.5); Red Blood Cell (RBC) Count 2.89 mill/uL (4.70-6.10); White Blood Cell (WBC) Count 7.7 thou/uL (4.8-10.8)
[2022-03-05] MEDS ORDERED: Magnesium 2 GM/50 ML(in water) 2 GM in Premix Bag 1 BAG IVPB SCH (08:00)
[2022-03-05] MEDS: Folic Acid 1 MG TAB PO SCH (08:39)
[2022-03-05] MEDS: Famotidine 20 MG TAB PO SCH (08:39)
[2022-03-05] MEDS: Milrinone Lactate/D5W 20 MG in Premix Bag 1 BAG IVPB SCH (08:48)
[2022-03-05] MEDS: Enoxaparin Sodium 30 MG/0.3 ML SYRINGE SC SCH (09:50)
[2022-03-05] MEDS ORDERED: Dextrose 50% Abboject 50 ML SYRINGE IVP PRN (11:15)
[2022-03-05] MEDS ORDERED: Lactated Ringer's 500 ML IV SCH (11:15)
[2022-03-05] MEDS ORDERED: Dextrose 5% in Water 1,000 ML IV PRN (11:15)
[2022-03-05] MEDS ORDERED: Lorazepam 2 MG/ML VIAL IM PRN (12:00)
[2022-03-05] MEDS: Lactated Ringer's 500 ML IV SCH ×2 (12:27→22:13)
[2022-03-05] MEDS: NEXIUM 20 MG PO SCH (14:36)
[2022-03-05] MEDS: Labetalol HCl 100 MG/20 ML VIAL SLOW IVP PRN (19:56)
[2022-03-05] MEDS: Acetaminophen 325 MG TAB PO PRN (19:57)
[2022-03-05] MEDS: Loperamide HCl 2 MG CAP PO PRN (20:39)
[2022-03-06] MEDS: Thiamine HCl 200 MG/2 ML VIAL SLOW IVP SCH ×3 (00:07→18:12)
[2022-03-06] MEDS: Nicotine 21 MG PATCH TD SCH (00:07)
[2022-03-06] MEDS: Labetalol HCl 100 MG/20 ML VIAL SLOW IVP PRN ×3 (00:08→12:47)
[2022-03-06] MEDS: NEXIUM 20 MG PO SCH (00:19)
[2022-03-06] MEDS: Acetaminophen 325 MG TAB PO PRN ×2 (00:56→16:01)
[2022-03-06 03:47] LABS: #Basophils 0.1 thou/uL (0.0-0.2); #Eosinphils 0.3 thou/uL (0.0-0.7); #Lymphocytes 2.4 thou/uL (1.20-3.40); #Monocytes 1.2 thou/uL (0.11-0.59); #Neutrophils 5.6 thou/uL (1.40-6.50); %Basophils 1.2 % (0.0-1.0); %Lymphocytes 24.9 % (21.0-51.0); %Monocytes 12.8 % (0.0-10.0); %Neutrophils 58.2 % (42.0-75.0); Hemoglobin 12.3 g/dL (14.0-18.0); Mean Corpuscular HGB CONC 33.8 g/dL (32.0-36.0); Mean Corpuscular Hemoglobin 36.6 pg (27.0-31.0); Mean Platelet Volume 9.7 fL (7.4-10.4); Platelet Count 208 thou/uL (130-400); RBC Distribution Width 12.3 % (11.5-14.5); Red Blood Cell (RBC) Count 3.37 mill/uL (4.70-6.10); White Blood Cell (WBC) Count 9.6 thou/uL (4.8-10.8)
[2022-03-06 04:12] LABS: ALT (SGPT) 39 U/L (8-55); AST (SGOT) 34 U/L (5-34); Albumin 3.4 g/dL (3.5-5.0); Alkaline Phosphatase 74 U/L (40-110); Anion Gap 15 mmol/L (10-20); BUN (Urea Nitrogen) 4 mg/dL (8.9-20.6); Bilirubin, Total 1.4 mg/dL (0.2-1.2); Calc. Creatinine Clearance 129 mL/min (70-130); Calcium 9.9 mg/dL (7.8-10.44); Carbon Dioxide 24 mmol/L (22-29); Chloride 105 mmol/L (98-107); Estimated GFR 80; Globulin 3.9 g/dL (2.4-3.5); Glucose 103 mg/dL (70-105); Magnesium 1.7 mg/dL (1.6-2.6); Potassium 3.3 mmol/L (3.5-5.1); Protein, Total 7.3 g/dL (6.0-8.3); Sodium 141 mmol/L (136-145)
[2022-03-06] MEDS: Loperamide HCl 2 MG CAP PO PRN (04:20)
[2022-03-06] MEDS: Piperacillin/Tazobactam 3.375 GM in Sodium Chloride 0.9% 100 ML IVPB SCH (05:06)
[2022-03-06] MEDS ORDERED: Potassium Chloride 20 MEQ TAB PO SCH (08:00)
[2022-03-06] MEDS ORDERED: Magnesium 2 GM/50 ML(in water) 2 GM in Premix Bag 1 BAG IVPB SCH (08:00)
[2022-03-06] MEDS ORDERED: Carvedilol 6.25 MG TAB PO SCH (09:00)
[2022-03-06] MEDS ORDERED: Loperamide HCl 2 MG CAP PO SCH (09:00)
[2022-03-06] MEDS: Folic Acid 1 MG TAB PO SCH (10:18)
[2022-03-06] MEDS: Enoxaparin Sodium 30 MG/0.3 ML SYRINGE SC SCH (10:18)
[2022-03-06] MEDS ORDERED: Furosemide 40 MG/4 ML VIAL SLOW IVP SCH (10:45)
[2022-03-06] MEDS ORDERED: Phenazopyridine HCl 100 MG TAB PO SCH (11:15)
[2022-03-06] MEDS: Lactated Ringer's 500 ML IV SCH (14:37)
[2022-03-06 14:44] LABS: Potassium 3.8 mmol/L (3.5-5.1)
[2022-03-06] MEDS: Ketorolac Tromethamine 30 MG/ML VIAL IVP PRN (18:12)
[2022-03-06] MEDS: Diclofenac 1% 100 GM GEL TP SCH (20:40)
[2022-03-06] MEDS: Phenazopyridine HCl 100 MG TAB PO SCH (20:42)
[2022-03-06] MEDS ORDERED: Carvedilol 3.125 MG TAB PO SCH (21:00)
[2022-03-07] MEDS: Nicotine 21 MG PATCH TD SCH (00:18)
[2022-03-07] MEDS: Thiamine HCl 200 MG/2 ML VIAL SLOW IVP SCH ×3 (00:18→18:26)
[2022-03-07] MEDS: Cepastat Lozenges 1 LOZ PO PRN ×2 (00:46→03:39)
[2022-03-07] MEDS: Phenazopyridine HCl 100 MG TAB PO SCH ×3 (03:38→21:00)
[2022-03-07] MEDS: Acetaminophen 325 MG TAB PO PRN ×2 (03:38→18:25)
[2022-03-07] MEDS: Ketorolac Tromethamine 30 MG/ML VIAL IVP PRN ×2 (03:38→12:40)
[2022-03-07 04:03] LABS: ALT (SGPT) 29 U/L (8-55); AST (SGOT) 25 U/L (5-34); Albumin 3.2 g/dL (3.5-5.0); Alkaline Phosphatase 63 U/L (40-110); Anion Gap 14 mmol/L (10-20); BUN (Urea Nitrogen) 4 mg/dL (8.9-20.6); Bilirubin, Total 1.1 mg/dL (0.2-1.2); Calc. Creatinine Clearance 119 mL/min (70-130); Calcium 10.2 mg/dL (7.8-10.44); Carbon Dioxide 26 mmol/L (22-29); Chloride 106 mmol/L (98-107); Estimated GFR 72; Globulin 3.5 g/dL (2.4-3.5); Glucose 100 mg/dL (70-105); Magnesium 1.5 mg/dL (1.6-2.6); Potassium 3.2 mmol/L (3.5-5.1); Protein, Total 6.7 g/dL (6.0-8.3); Sodium 143 mmol/L (136-145)
[2022-03-07 04:12] LABS: Band 3 % (5-11); Eosinophils 2 % (0-10); Hemoglobin 11.1 g/dL (14.0-18.0); Lymphocytes 27 % (21-51); MDiff Complete? YES; Macrocytosis MODERATE=16-30 cells (100X) (0-5/hpf); Mean Corpuscular HGB CONC 33.5 g/dL (32.0-36.0); Mean Corpuscular Hemoglobin 36.3 pg (27.0-31.0); Monocytes 12 % (0-10); Myelocyte 2 % (0-0); Neutrophil 54 % (42-75); Ovalocytes SLIGHT = 2-5 cells (100X) (0-1/hpf); Platelet Count 209 thou/uL (130-400); Platelet Morphology Comment Appears Adequate; RBC Distribution Width 12.3 % (11.5-14.5); Red Blood Cell (RBC) Count 3.05 mill/uL (4.70-6.10)
[2022-03-07] MEDS ORDERED: Potassium Chloride 20 MEQ TAB PO SCH (06:15)
[2022-03-07] MEDS ORDERED: Magnesium 2 GM/50 ML(in water) 2 GM in Premix Bag 1 BAG IVPB SCH (06:15)
[2022-03-07 07:29] VITALS: BMI 34.4
[2022-03-07] MEDS: NEXIUM 20 MG PO SCH (10:06)
[2022-03-07] MEDS: Diclofenac 1% 100 GM GEL TP SCH ×6 (10:07→21:14)
[2022-03-07] MEDS: Lidocaine 5% Patch TD SCH (10:09)
[2022-03-07] MEDS: Folic Acid 1 MG TAB PO SCH (10:09)
[2022-03-07] MEDS: Enoxaparin Sodium 30 MG/0.3 ML SYRINGE SC SCH (10:10)
[2022-03-07] MEDS: Carvedilol 3.125 MG TAB PO SCH ×2 (10:10→21:00)
[2022-03-07] MEDS: chlordiazePOXIDE HCl 5 MG CAP PO SCH ×3 (10:18→20:59)
[2022-03-07] MEDS: Lorazepam 0.5 MG TAB PO PRN (10:40)
[2022-03-07] MEDS ORDERED: Moisturizing Cream (Eucerin) 113 GM JAR TOP PRN (12:12)
[2022-03-07] MEDS ORDERED: Loratadine 10 MG TAB PO PRN (12:12)
[2022-03-07] MEDS ORDERED: Artificial Tear Sol 15 ML BOT EA EYE PRN (12:12)
[2022-03-07] MEDS: Simethicone Chewable 80 MG TAB PO PRN (12:56)
[2022-03-07] MEDS: Benzonatate 100 MG CAP PO PRN ×3 (12:57→23:50)
[2022-03-07] MEDS: Loperamide HCl 2 MG CAP PO PRN (14:50)
[2022-03-07] MEDS: Transdermal Patch Removal TOP SCH (21:01)
[2022-03-08] MEDS: Thiamine HCl 200 MG/2 ML VIAL SLOW IVP SCH ×3 (00:41→17:30)
[2022-03-08] MEDS: Nicotine 21 MG PATCH TD SCH (00:41)
[2022-03-08] MEDS: Phenazopyridine HCl 100 MG TAB PO SCH ×4 (03:48→20:58)
[2022-03-08 04:16] LABS: #Eosinphils 0.2 thou/uL (0.0-0.7); #Lymphocytes 1.5 thou/uL (1.20-3.40); #Monocytes 0.7 thou/uL (0.11-0.59); #Neutrophils 4.4 thou/uL (1.40-6.50); %Basophils 0.5 % (0.0-1.0); %Eosinophils 2.5 % (0.0-10.0); %Lymphocytes 22.2 % (21.0-51.0); %Monocytes 10.7 % (0.0-10.0); %Neutrophils 64.1 % (42.0-75.0); Hemoglobin 11.1 g/dL (14.0-18.0); Mean Corpuscular HGB CONC 33.1 g/dL (32.0-36.0); Mean Corpuscular Hemoglobin 36.1 pg (27.0-31.0); Mean Platelet Volume 8.8 fL (7.4-10.4); Platelet Count 210 thou/uL (130-400); RBC Distribution Width 12.3 % (11.5-14.5); Red Blood Cell (RBC) Count 3.06 mill/uL (4.70-6.10); White Blood Cell (WBC) Count 6.9 thou/uL (4.8-10.8)
[2022-03-08 04:39] LABS: ALT (SGPT) 24 U/L (8-55); AST (SGOT) 25 U/L (5-34); Albumin 2.8 g/dL (3.5-5.0); Alkaline Phosphatase 56 U/L (40-110); Anion Gap 13 mmol/L (10-20); BUN (Urea Nitrogen) 4 mg/dL (8.9-20.6); Bilirubin, Total 0.9 mg/dL (0.2-1.2); Calc. Creatinine Clearance 151 mL/min (70-130); Calcium 9.6 mg/dL (7.8-10.44); Carbon Dioxide 25 mmol/L (22-29); Chloride 106 mmol/L (98-107); Estimated GFR 97; Globulin 3.2 g/dL (2.4-3.5); Glucose 92 mg/dL (70-105); Magnesium 1.5 mg/dL (1.6-2.6); Potassium 3.9 mmol/L (3.5-5.1); Sodium 140 mmol/L (136-145)
[2022-03-08] MEDS ORDERED: Magnesium 2 GM/50 ML(in water) 2 GM in Premix Bag 1 BAG IVPB SCH (06:00)
[2022-03-08] MEDS: Diclofenac 1% 100 GM GEL TP SCH ×4 (09:00→21:08)
[2022-03-08] MEDS: Carvedilol 3.125 MG TAB PO SCH (09:00)
[2022-03-08] MEDS: Benzonatate 100 MG CAP PO PRN ×2 (09:00→20:57)
[2022-03-08] MEDS: Folic Acid 1 MG TAB PO SCH (09:01)
[2022-03-08] MEDS: NEXIUM 20 MG PO SCH (09:02)
[2022-03-08] MEDS: Lidocaine 5% Patch TD SCH (09:03)
[2022-03-08] MEDS ORDERED: Iopamidol 370 76% 50 ML VIAL FS ONE (09:57)
[2022-03-08] MEDS ORDERED: Gentamicin 80 MG/2 ML VIAL ONE (13:10)
[2022-03-08] MEDS ORDERED: Lidocaine 1% 50ML VIAL ONE (13:10)
[2022-03-08] MEDS ORDERED: CEFAZOLIN 1 GM VIAL ONE (13:10)
[2022-03-08] MEDS ORDERED: fentaNYL Citrate/PF 100 MCG/2 ML SYRINGE ONE (13:57)
[2022-03-08] MEDS ORDERED: Midazolam HCl 5 mg/5 ml Vial ONE (13:57)
[2022-03-08] MEDS ORDERED: Dexmedetomidine 200 MCG/2 ML VIAL ONE (13:57)
[2022-03-08] MEDS ORDERED: PROPOFOL 200 MG/20 ML VIAL ONE (14:09)
[2022-03-08] MEDS: Acetaminophen 325 MG TAB PO PRN (20:56)
[2022-03-08] MEDS: Carvedilol 6.25 MG TAB PO SCH (20:57)
[2022-03-08] MEDS: Transdermal Patch Removal TOP SCH (21:08)
[2022-03-09] MEDS: Thiamine HCl 200 MG/2 ML VIAL SLOW IVP SCH ×3 (00:40→19:48)
[2022-03-09] MEDS: Nicotine 21 MG PATCH TD SCH ×2 (00:41→23:03)
[2022-03-09] MEDS: Phenazopyridine HCl 100 MG TAB PO SCH (03:52)
[2022-03-09] MEDS: Lorazepam 0.5 MG TAB PO PRN (03:56)
[2022-03-09 04:46] LABS: Magnesium 1.6 mg/dL (1.6-2.6)
[2022-03-09] MEDS ORDERED: Magnesium 2 GM/50 ML(in water) 2 GM in Premix Bag 1 BAG IVPB SCH (05:30)
[2022-03-09] MEDS: Chloraseptic Spray 180 ml Bottle PO PRN ×2 (05:48→11:05)
[2022-03-09] MEDS: Benzonatate 100 MG CAP PO PRN ×3 (05:48→15:38)
[2022-03-09] MEDS: Acetaminophen 325 MG TAB PO PRN ×3 (05:52→15:37)
[2022-03-09] MEDS: Ketorolac Tromethamine 30 MG/ML VIAL IVP PRN ×2 (05:53→15:38)
[2022-03-09] MEDS: Cepastat Lozenges 1 LOZ PO PRN ×2 (05:53→21:12)
[2022-03-09] MEDS: Diclofenac 1% 100 GM GEL TP SCH ×4 (10:59→21:21)
[2022-03-09] MEDS: Enoxaparin Sodium 40 MG/0.4 ML SYRINGE SC SCH (11:00)
[2022-03-09] MEDS: Folic Acid 1 MG TAB PO SCH (11:00)
[2022-03-09] MEDS: Carvedilol 6.25 MG TAB PO SCH ×3 (11:01→21:12)
[2022-03-09] MEDS: Lidocaine 5% Patch TD SCH (11:03)
[2022-03-09] MEDS: NEXIUM 20 MG PO SCH (11:03)
[2022-03-09] MEDS: Simethicone Chewable 80 MG TAB PO PRN (15:37)
[2022-03-09] MEDS: Transdermal Patch Removal TOP SCH (21:22)
[2022-03-10 04:21] LABS: Hemoglobin 10.9 g/dL (14.0-18.0); Platelet Count 256 thou/uL (130-400)
[2022-03-10 04:37] LABS: Anion Gap 11 mmol/L (10-20); BUN (Urea Nitrogen) 8 mg/dL (8.9-20.6); Calc. Creatinine Clearance 169 mL/min (70-130); Calcium 8.8 mg/dL (7.8-10.44); Carbon Dioxide 25 mmol/L (22-29); Chloride 105 mmol/L (98-107); Estimated GFR 108; Glucose 109 mg/dL (70-105); Magnesium 1.6 mg/dL (1.6-2.6); Potassium 3.7 mmol/L (3.5-5.1); Sodium 137 mmol/L (136-145)
[2022-03-10] MEDS: Acetaminophen 325 MG TAB PO PRN ×2 (05:37→09:36)
[2022-03-10] MEDS: Benzonatate 100 MG CAP PO PRN ×2 (05:37→09:38)
[2022-03-10] MEDS: Ketorolac Tromethamine 30 MG/ML VIAL IVP PRN ×2 (05:38→16:00)
[2022-03-10] MEDS: NEXIUM 20 MG PO SCH (05:44)
[2022-03-10] MEDS ORDERED: Magnesium 2 GM/50 ML(in water) 2 GM in Premix Bag 1 BAG IVPB SCH (05:45)
[2022-03-10] MEDS: Folic Acid 1 MG TAB PO SCH (09:37)
[2022-03-10] MEDS: Carvedilol 6.25 MG TAB PO SCH ×2 (09:37→20:18)
[2022-03-10] MEDS: Enoxaparin Sodium 40 MG/0.4 ML SYRINGE SC SCH (09:38)
[2022-03-10] MEDS: Thiamine 100 MG TAB PO SCH (09:38)
[2022-03-10] MEDS: Diclofenac 1% 100 GM GEL TP SCH ×4 (09:39→20:19)
[2022-03-10] MEDS: Lidocaine 5% Patch TD SCH (09:39)
[2022-03-10] MEDS: Phenazopyridine HCl 100 MG TAB PO SCH ×2 (16:00→20:18)
[2022-03-10] MEDS: Transdermal Patch Removal TOP SCH (20:19)
[2022-03-10 20:22] VITALS: BP 137/92
[2022-03-11] MEDS: Nicotine 21 MG PATCH TD SCH (00:06)
[2022-03-11] MEDS: Benzonatate 100 MG CAP PO PRN (03:58)
[2022-03-11] MEDS: Ketorolac Tromethamine 30 MG/ML VIAL IVP PRN (03:58)
[2022-03-11 04:44] LABS: Magnesium 1.6 mg/dL (1.6-2.6)
[2022-03-11] MEDS ORDERED: Magnesium 2 GM/50 ML(in water) 2 GM in Premix Bag 1 BAG IVPB SCH (05:00)
[2022-03-11] MEDS: Enoxaparin Sodium 40 MG/0.4 ML SYRINGE SC SCH (09:15)
[2022-03-11] MEDS: Phenazopyridine HCl 100 MG TAB PO SCH ×2 (09:15→14:33)
[2022-03-11] MEDS: NEXIUM 20 MG PO SCH (09:15)
[2022-03-11] MEDS: Carvedilol 6.25 MG TAB PO SCH (09:16)
[2022-03-11] MEDS: Folic Acid 1 MG TAB PO SCH (09:16)
[2022-03-11] MEDS: Thiamine 100 MG TAB PO SCH (09:16)
[2022-03-11] MEDS: Lidocaine 5% Patch TD SCH (09:16)
[2022-03-11] MEDS: Diclofenac 1% 100 GM GEL TP SCH ×2 (09:17→14:33)
[2022-03-11] MEDS: Acetaminophen 325 MG TAB PO PRN (09:33)
[2022-03-11 11:39] VITALS: TEMP 97
[2022-03-11] MEDS ORDERED: Cephalexin 250 MG CAP PO SCH (15:00)
== END 2022-03-11 16:03 | disposition home or self-care (01) | DRG 853 ==
LOC: ERS 20:32 → IMCU/EMU 23:05 → CCU 03-01 19:21 → IMCU/EMU 03-07 11:53
PROVIDERS: ADMIT Family Medicine; ATTEND Family Medicine
PROC: 3E03329 Introduction of Other Anti-infective into Peripheral Vein, Percutaneous Approach (ICD-10-PCS; 2022-02-27)
PROC: HZ2ZZZZ Detoxification Services for Substance Abuse Treatment (ICD-10-PCS; 2022-02-27)
PROC: 3E033XZ Introduction of Vasopressor into Peripheral Vein, Percutaneous Approach (ICD-10-PCS; 2022-03-01)
PROC: 02H63KZ Insertion of Defibrillator Lead into Right Atrium, Percutaneous Approach (ICD-10-PCS; principal; 2022-03-08)
PROC: 0JH609Z Insertion of Cardiac Resynchronization Defibrillator Pulse Generator into Chest Subcutaneous Tissue and Fascia, Open Approach (ICD-10-PCS; 2022-03-08)
PROC: 0JPT0PZ Removal of Cardiac Rhythm Related Device from Trunk Subcutaneous Tissue and Fascia, Open Approach (ICD-10-PCS; 2022-03-08)
PROC: 02HL3KZ Insertion of Defibrillator Lead into Left Ventricle, Percutaneous Approach (ICD-10-PCS; 2022-03-08)
PROC: 4B02XTZ Measurement of Cardiac Defibrillator, External Approach (ICD-10-PCS; 2022-03-08)
DX: A41.9 Sepsis, unspecified organism (principal); G93.41 Metabolic encephalopathy; I50.43 Acute on chronic combined systolic (congestive) and diastolic (congestive) heart failure; J69.0 Pneumonitis due to inhalation of food and vomit; J18.9 Pneumonia, unspecified organism; J96.00 Acute respiratory failure, unspecified whether with hypoxia or hypercapnia; F10.231 Alcohol dependence with withdrawal delirium; I42.6 Alcoholic cardiomyopathy; I42.0 Dilated cardiomyopathy; E87.2 Acidosis; I42.8 Other cardiomyopathies; S37.30XA Unspecified injury of urethra, initial encounter; I47.2 Ventricular tachycardia; Z51.5 Encounter for palliative care; R65.20 Severe sepsis without septic shock; I11.0 Hypertensive heart disease with heart failure; Z20.822 Contact with and (suspected) exposure to COVID-19; F41.9 Anxiety disorder, unspecified; F17.290 Nicotine dependence, other tobacco product, uncomplicated; F17.210 Nicotine dependence, cigarettes, uncomplicated; G40.909 Epilepsy, unspecified, not intractable, without status epilepticus; K21.9 Gastro-esophageal reflux disease without esophagitis; F90.9 Attention-deficit hyperactivity disorder, unspecified type; F32.A Depression, unspecified; E83.42 Hypomagnesemia; E87.6 Hypokalemia; E83.39 Other disorders of phosphorus metabolism; I44.7 Left bundle-branch block, unspecified; D69.6 Thrombocytopenia, unspecified; D64.9 Anemia, unspecified; K70.10 Alcoholic hepatitis without ascites; E66.9 Obesity, unspecified; R31.0 Gross hematuria; Z79.899 Other long term (current) drug therapy; Z68.31 Body mass index [BMI] 31.0-31.9, adult; Z91.14 Patient's other noncompliance with medication regimen; Z88.5 Allergy status to narcotic agent; Z81.1 Family history of alcohol abuse and dependence; Z82.49 Family history of ischemic heart disease and other diseases of the circulatory system; Z60.2 Problems related to living alone; I34.0 Nonrheumatic mitral (valve) insufficiency
CPT/HCPCS: 33216; 33224; 36415; 36416; 36600; 71045; 71046; 71275; 74174; 80048; 80053; 80202; 80306; 80307; 81001; 82553; 82805; 83605; 83690; 83735; 83880; 84100; 84439; 84443; 84484; 85014; 85018; 85025; 85049; 85610; 85730; 86780; 86850; 86900; 86901; 87040; 87081; 87086; 87811; 93005; 93010; 93642; 94660; 96365; 96375; 96376; C1763; C1882; C1894; C1898; C1900; J0690; J0692; J1250; J1580; J1650; J1885; J1940; J2060; J2250; J2260; J2405; J2543; J2550; J2704; J3360; J3370; J3411; J3475; J3486; J3490; J7042; J7050; J7120; Q9967; U0002

== ENCOUNTER 2022-04-08 23:20 | Emergency (ER) | payer OTHER | END 2022-04-09 01:54 | disposition home or self-care (01) | LOC: ERS 23:20 | DX: I82.432 Acute embolism and thrombosis of left popliteal vein (principal); I82.412 Acute embolism and thrombosis of left femoral vein; I10 Essential (primary) hypertension ==

== ENCOUNTER 2023-02-27 04:06 | Observation (INO) | payer BC ==
[2023-02-27 04:48] LABS: #Basophils 0.1 thou/uL (0.0-0.2); #Monocytes 0.6 thou/uL (0.11-0.59); #Neutrophils 2.6 thou/uL (1.40-6.50); %Basophils 1.3 % (0.0-1.0); %Eosinophils 0.6 % (0.0-10.0); %Lymphocytes 36.5 % (21.0-51.0); %Monocytes 10.9 % (0.0-10.0); %Neutrophils 50.5 % (42.0-75.0); Hematocrit 41.9 % (42.0-52.0); Hemoglobin 14.5 g/dL (14.0-18.0); Mean Corpuscular HGB CONC 34.6 g/dL (32.0-36.0); Mean Corpuscular Hemoglobin 34.7 pg (27.0-31.0); Mean Corpuscular Volume 100.2 fl (78.0-98.0); Mean Platelet Volume 11.4 fL (7.4-10.4); Platelet Count 117 10x3/uL (130-400); RBC Distribution Width 13.6 % (11.5-14.5); Red Blood Cell (RBC) Count 4.18 mill/uL (4.70-6.10); White Blood Cell (WBC) Count 5.2 10x3/uL (4.8-10.8)
[2023-02-27 05:02] LABS: Delete Auto Diff?? NO
[2023-02-27 05:06] LABS: ALT (SGPT) 23 U/L (8-55); AST (SGOT) 48 U/L (5-34); Albumin 4.2 g/dL (3.5-5.0); Alkaline Phosphatase 92 U/L (40-110); Anion Gap 19 mmol/L (10-20); BUN (Urea Nitrogen) 22 mg/dL (8.9-20.6); Bilirubin, Total 1.3 mg/dL (0.2-1.2); Calc. Creatinine Clearance 0 mL/min (70-130); Calcium 9.8 mg/dL (7.8-10.44); Carbon Dioxide 25 mmol/L (22-29); Chloride 98 mmol/L (98-107); Estimated GFR 87; Globulin 3.4 g/dL (2.4-3.5); Glucose 115 mg/dL (70-105); Potassium 4.1 mmol/L (3.5-5.1); Protein, Total 7.6 g/dL (6.0-8.3); Sodium 138 mmol/L (136-145)
[2023-02-27 05:13] LABS: Magnesium 0.9 mg/dL (1.6-2.6)
[2023-02-27] MEDS ORDERED: Magnesium 2 GM/50 ML BAG (IN WATER) ONE ×2 (05:16→09:25)
[2023-02-27 05:40] LABS: Troponin I 0.052 ng/mL (< 0.028)
[2023-02-27] MEDS ORDERED: Lorazepam 1 MG TAB PO PRN (07:58)
[2023-02-27] MEDS ORDERED: Ondansetron ODT 4 MG TAB PO PRN (07:58)
[2023-02-27] MEDS ORDERED: Lorazepam 2 MG/ML VIAL IM PRN (07:58)
[2023-02-27] MEDS ORDERED: Furosemide 100 MG/10 ML VIAL SLOW IVP SCH (08:00)
[2023-02-27] MEDS ORDERED: Lorazepam 1 MG TAB PO SCH (08:00)
[2023-02-27] MEDS ORDERED: Furosemide 40 MG/4 ML VIAL SLOW IVP SCH (08:00)
[2023-02-27] MEDS ORDERED: Electrolyte Replacement Protocol 1 EACH FS SCH (08:00)
[2023-02-27] MEDS ORDERED: Furosemide 40 MG/4 ML VIAL ONE (08:12)
[2023-02-27] MEDS ORDERED: Potassium Chloride 20 MEQ TAB PO SCH (09:00)
[2023-02-27] MEDS ORDERED: Folic Acid 1 MG TAB PO SCH (09:00)
[2023-02-27] MEDS ORDERED: Thiamine HCl 200 MG/2 ML VIAL SLOW IVP SCH (09:00)
[2023-02-27] MEDS ORDERED: Magnesium 2 GM/50 ML(in water) 2 GM in Premix Bag 1 BAG IVPB SCH (09:00)
[2023-02-27] MEDS ORDERED: Multivit, Therapeutic 1 TAB PO SCH (09:00)
[2023-02-27] MEDS ORDERED: Potassium Chloride 20 MEQ TAB ONE (09:25)
[2023-02-28] MEDS ORDERED: Lorazepam 1 MG TAB PO PRN (07:59)
[2023-03-01] MEDS ORDERED: Lorazepam 1 MG TAB PO PRN (07:59)
[2023-03-01] MEDS ORDERED: Lorazepam 0.5 MG TAB PO SCH (08:00)
[2023-03-02] MEDS ORDERED: Lorazepam 0.5 MG TAB PO PRN (07:59)
[2023-03-02] MEDS ORDERED: Thiamine 100 MG TAB PO SCH (09:00)
== END 2023-02-27 10:45 | disposition home or self-care (01) ==
LOC: ERS 04:06 → SUATTDRO 04:06 → ERHOLD 07:50 → INTOOBSV 07:50
PROVIDERS: ADMIT Family Medicine; ATTEND Family Medicine
DX: R06.02 Shortness of breath (principal); F10.10 Alcohol abuse, uncomplicated; I50.20 Unspecified systolic (congestive) heart failure; I42.9 Cardiomyopathy, unspecified; F90.9 Attention-deficit hyperactivity disorder, unspecified type; K21.9 Gastro-esophageal reflux disease without esophagitis; F32.A Depression, unspecified; Z88.5 Allergy status to narcotic agent; Z95.810 Presence of automatic (implantable) cardiac defibrillator; Z79.899 Other long term (current) drug therapy
CPT/HCPCS: 36415; 71045; 80053; 83735; 83880; 84443; 84484; 85025; 93005; 96365; 96375; J1940; J3411; J3475

== ENCOUNTER 2023-04-03 07:53 | Inpatient (IN) | payer BC, OTHER, SELFPAY ==
[2023-04-03 08:38] LABS: #Basophils 0.1 thou/uL (0.0-0.2); #Monocytes 0.5 thou/uL (0.11-0.59); #Neutrophils 2.8 thou/uL (1.40-6.50); %Basophils 1.2 % (0.0-1.0); %Eosinophils 0.8 % (0.0-10.0); %Lymphocytes 32.1 % (21.0-51.0); %Monocytes 10.5 % (0.0-10.0); %Neutrophils 55.2 % (42.0-75.0); Hematocrit 42.5 % (42.0-52.0); Hemoglobin 14.7 g/dL (14.0-18.0); Mean Corpuscular HGB CONC 34.6 g/dL (32.0-36.0); Mean Corpuscular Hemoglobin 33.5 pg (27.0-31.0); Mean Corpuscular Volume 96.8 fl (78.0-98.0); Mean Platelet Volume 11.7 fL (7.4-10.4); Platelet Count 123 10x3/uL (130-400); RBC Distribution Width 14.5 % (11.5-14.5); Red Blood Cell (RBC) Count 4.39 mill/uL (4.70-6.10); White Blood Cell (WBC) Count 5.1 10x3/uL (4.8-10.8)
[2023-04-03 09:06] LABS: ALT (SGPT) 21 U/L (8-55); AST (SGOT) 51 U/L (5-34); Albumin 4.3 g/dL (3.5-5.0); Alkaline Phosphatase 129 U/L (40-110); Anion Gap 19 mmol/L (10-20); BUN (Urea Nitrogen) 20 mg/dL (8.9-20.6); Calc. Creatinine Clearance 0 mL/min (70-130); Calcium 10.1 mg/dL (7.8-10.44); Carbon Dioxide 30 mmol/L (22-29); Chloride 93 mmol/L (98-107); Estimated GFR 83; Globulin 3.6 g/dL (2.4-3.5); Glucose 101 mg/dL (70-105); Magnesium 1.6 mg/dL (1.6-2.6); Potassium 3.2 mmol/L (3.5-5.1); Protein, Total 7.9 g/dL (6.0-8.3); Sodium 139 mmol/L (136-145)
[2023-04-03 09:15] LABS: Troponin I 0.055 ng/mL (< 0.028)
[2023-04-03] MEDS ORDERED: Furosemide 40 MG/4 ML VIAL ONE (09:18)
[2023-04-03] MEDS ORDERED: Potassium Chloride 20 MEQ TAB ONE ×2 (09:49→11:19)
[2023-04-03] MEDS ORDERED: Acetaminophen 500 MG TAB ONE (10:37)
[2023-04-03] MEDS ORDERED: Senokot S 8.6-50 MG TAB PO PRN (10:51)
[2023-04-03] MEDS ORDERED: Lorazepam 1 MG TAB PO PRN (10:52)
[2023-04-03] MEDS ORDERED: Lorazepam 2 MG/ML VIAL IM PRN (10:52)
[2023-04-03] MEDS ORDERED: Electrolyte Replacement Protocol FS SCH (11:00)
[2023-04-03] MEDS ORDERED: Magnesium 2 GM/50 ML BAG (IN WATER) ONE (11:19)
[2023-04-03 12:32] LABS: Troponin I 0.049 ng/mL (< 0.028)
[2023-04-03] MEDS ORDERED: Iopamidol-370 76% 500 ML MDV (1 ML CHARGE) ONE (13:07)
[2023-04-03 13:22] VITALS: BMI 31.4
[2023-04-03 14:52] LABS: Troponin I 0.052 ng/mL (< 0.028)
[2023-04-03 15:10] LABS: PTT 28.9 sec (22.9-36.1)
[2023-04-03] MEDS ORDERED: Magnesium 2 GM/50 ML(in water) 2 GM in Premix Bag 1 BAG IVPB SCH (16:00)
[2023-04-03] MEDS: Carvedilol 6.25 MG TAB PO SCH (16:04)
[2023-04-03] MEDS: Potassium Chloride 20 MEQ TAB PO SCH (16:04)
[2023-04-03] MEDS: Thiamine HCl 200 MG/2 ML VIAL SLOW IVP SCH (16:04)
[2023-04-03] MEDS: Furosemide 40 MG/4 ML VIAL SLOW IVP SCH (16:04)
[2023-04-03] MEDS: Famotidine 20 MG TAB PO SCH (20:10)
[2023-04-03] MEDS ORDERED: hydrOXYzine 25 MG TAB PO SCH (20:30)
[2023-04-04] MEDS ORDERED: traZODone HCl 50 MG TAB PO SCH (02:45)
[2023-04-04 04:35] LABS: #Basophils 0.1 thou/uL (0.0-0.2); #Monocytes 0.7 thou/uL (0.11-0.59); #Neutrophils 3.8 thou/uL (1.40-6.50); %Basophils 0.8 % (0.0-1.0); %Eosinophils 0.3 % (0.0-10.0); %Lymphocytes 23.8 % (21.0-51.0); %Monocytes 11.5 % (0.0-10.0); %Neutrophils 63.3 % (42.0-75.0); Hemoglobin 13.9 g/dL (14.0-18.0); Mean Corpuscular HGB CONC 33.9 g/dL (32.0-36.0); Mean Corpuscular Hemoglobin 33.3 pg (27.0-31.0); Mean Corpuscular Volume 98.1 fl (78.0-98.0); Mean Platelet Volume 12.1 fL (7.4-10.4); Platelet Count 135 10x3/uL (130-400); RBC Distribution Width 14.9 % (11.5-14.5); Red Blood Cell (RBC) Count 4.18 mill/uL (4.70-6.10)
[2023-04-04 04:54] LABS: Phosphorus 4.4 mg/dL (2.3-4.7)
[2023-04-04 05:07] LABS: Sodium 138 mmol/L (136-145)
[2023-04-04 05:08] LABS: ALT (SGPT) 19 U/L (8-55); AST (SGOT) 46 U/L (5-34); Alkaline Phosphatase 131 U/L (40-110); Anion Gap 19 mmol/L (10-20); BUN (Urea Nitrogen) 26 mg/dL (8.9-20.6); Bilirubin, Total 1.8 mg/dL (0.2-1.2); Calc. Creatinine Clearance 102 mL/min (70-130); Calcium 10.1 mg/dL (7.8-10.44); Carbon Dioxide 28 mmol/L (22-29); Chloride 95 mmol/L (98-107); Estimated GFR 69; Globulin 3.6 g/dL (2.4-3.5); Glucose 91 mg/dL (70-105); Magnesium 1.9 mg/dL (1.6-2.6); Potassium 3.8 mmol/L (3.5-5.1); Protein, Total 7.6 g/dL (6.0-8.3)
[2023-04-04] MEDS: Furosemide 40 MG/4 ML VIAL SLOW IVP SCH ×2 (05:18→14:46)
[2023-04-04] MEDS ORDERED: Magnesium 2 GM/50 ML(in water) 2 GM in Premix Bag 1 BAG IVPB SCH (08:00)
[2023-04-04] MEDS: Folic Acid 1 MG TAB PO SCH (08:39)
[2023-04-04] MEDS: Empagliflozin 10 MG TAB PO SCH (08:39)
[2023-04-04] MEDS: Aspirin 81 mg Enteric Coated Tablet PO SCH (08:39)
[2023-04-04] MEDS: Multivit, Therapeutic 1 TAB PO SCH (08:39)
[2023-04-04] MEDS: Potassium Chloride 20 MEQ TAB PO SCH ×3 (08:39→16:50)
[2023-04-04] MEDS: Famotidine 20 MG TAB PO SCH ×2 (08:40→20:08)
[2023-04-04] MEDS: Carvedilol 6.25 MG TAB PO SCH ×2 (08:41→16:50)
[2023-04-04] MEDS: Ondansetron ODT 4 MG TAB PO PRN (09:34)
[2023-04-04] MEDS ORDERED: Lidocaine 1% PF 5 ML VIAL ONE (09:41)
[2023-04-04] MEDS ORDERED: Sodium Bicarbonate 2.5 MEQ/5 ML VIAL ONE (09:41)
[2023-04-04] MEDS ORDERED: Lorazepam 1 MG TAB PO PRN ×2 (10:45→10:53)
[2023-04-04 11:48] LABS: RBC Count-Automated (BF) 659 /cu.mm; WBC/Nucleated-Auto (BF) 209 /cu.mm
[2023-04-04 11:54] LABS: BF Color Yellow; Body Fluid Source Ascites Body Fluid; Clarity Clear (Clear); Tube # EDTA
[2023-04-04 12:30] LABS: BF Segmented Neutrophils 4 %; Cell Count Non Hematic 57 %; Lymphocytes 39 %
[2023-04-04] MEDS: Lorazepam 1 MG TAB PO SCH ×3 (12:48→23:41)
[2023-04-04] MEDS ORDERED: Metolazone 2.5 MG TAB PO SCH ×2 (13:45)
[2023-04-04] MEDS: Thiamine HCl 200 MG/2 ML VIAL SLOW IVP SCH (14:47)
[2023-04-04] MEDS ORDERED: Spironolactone 25 MG TAB PO SCH (16:00)
[2023-04-04] MEDS: Sacubitril 24MG/Valsartan 26 MG TAB PO SCH (20:08)
[2023-04-05 05:18] LABS: #Basophils 0.1 thou/uL (0.0-0.2); #Monocytes 0.7 thou/uL (0.11-0.59); #Neutrophils 3.1 thou/uL (1.40-6.50); %Basophils 1.1 % (0.0-1.0); %Eosinophils 0.2 % (0.0-10.0); %Lymphocytes 17.4 % (21.0-51.0); %Monocytes 15.7 % (0.0-10.0); %Neutrophils 65.4 % (42.0-75.0); Hematocrit 40.1 % (42.0-52.0); Hemoglobin 13.6 g/dL (14.0-18.0); Mean Corpuscular HGB CONC 33.9 g/dL (32.0-36.0); Mean Corpuscular Hemoglobin 32.9 pg (27.0-31.0); Mean Corpuscular Volume 97.1 fl (78.0-98.0); Mean Platelet Volume 11.9 fL (7.4-10.4); RBC Distribution Width 15.3 % (11.5-14.5); Red Blood Cell (RBC) Count 4.13 mill/uL (4.70-6.10); White Blood Cell (WBC) Count 4.7 10x3/uL (4.8-10.8)
[2023-04-05] MEDS: Lorazepam 1 MG TAB PO SCH ×4 (05:38→23:42)
[2023-04-05] MEDS: Furosemide 40 MG/4 ML VIAL SLOW IVP SCH ×2 (05:38→11:10)
[2023-04-05 05:40] LABS: Phosphorus 4.9 mg/dL (2.3-4.7)
[2023-04-05 05:44] LABS: Platelet Count 107 10x3/uL (130-400)
[2023-04-05 05:47] LABS: ALT (SGPT) 21 U/L (8-55); AST (SGOT) 51 U/L (5-34); Albumin 3.8 g/dL (3.5-5.0); Alkaline Phosphatase 131 U/L (40-110); Anion Gap 22 mmol/L (10-20); BUN (Urea Nitrogen) 30 mg/dL (8.9-20.6); Bilirubin, Total 2.4 mg/dL (0.2-1.2); Calc. Creatinine Clearance 92 mL/min (70-130); Calcium 9.8 mg/dL (7.8-10.44); Carbon Dioxide 24 mmol/L (22-29); Chloride 94 mmol/L (98-107); Estimated GFR 58; Globulin 3.2 g/dL (2.4-3.5); Glucose 92 mg/dL (70-105); Magnesium 1.9 mg/dL (1.6-2.6); Potassium 4.2 mmol/L (3.5-5.1); Sodium 136 mmol/L (136-145)
[2023-04-05] MEDS ORDERED: Spironolactone 25 MG TAB PO SCH (08:00)
[2023-04-05] MEDS: Sacubitril 24MG/Valsartan 26 MG TAB PO SCH ×2 (08:53→21:24)
[2023-04-05] MEDS: Folic Acid 1 MG TAB PO SCH (08:54)
[2023-04-05] MEDS: Multivit, Therapeutic 1 TAB PO SCH (08:54)
[2023-04-05] MEDS: Famotidine 20 MG TAB PO SCH ×2 (08:54→21:25)
[2023-04-05] MEDS: Aspirin 81 mg Enteric Coated Tablet PO SCH (08:55)
[2023-04-05] MEDS: Carvedilol 6.25 MG TAB PO SCH ×2 (08:55→17:15)
[2023-04-05] MEDS: Potassium Chloride 20 MEQ TAB PO SCH ×2 (08:55→11:10)
[2023-04-05] MEDS: Empagliflozin 10 MG TAB PO SCH (08:55)
[2023-04-05] MEDS ORDERED: Lorazepam 1 MG TAB PO PRN ×2 (10:45→10:53)
[2023-04-05] MEDS ORDERED: DOBUTamine 500 mg/250 ml 250 ML IVPB SCH (11:00)
[2023-04-05] MEDS: Thiamine HCl 200 MG/2 ML VIAL SLOW IVP SCH (11:11)
[2023-04-05] MEDS ORDERED: Magnesium 2 GM/50 ML(in water) 2 GM in Premix Bag 1 BAG IVPB SCH (12:30)
[2023-04-05] MEDS: pyridOXINE 50 MG (B6) TAB PO SCH (21:24)
[2023-04-05] MEDS: Cholecalciferol 1,000 UNITS (25 MCG) TAB PO SCH (22:20)
[2023-04-06 05:07] LABS: ALT (SGPT) 29 U/L (8-55); AST (SGOT) 67 U/L (5-34); Albumin 4.1 g/dL (3.5-5.0); Alkaline Phosphatase 154 U/L (40-110); Anion Gap 19 mmol/L (10-20); BUN (Urea Nitrogen) 37 mg/dL (8.9-20.6); Bilirubin, Total 3.5 mg/dL (0.2-1.2); Calc. Creatinine Clearance 81 mL/min (70-130); Calcium 10.5 mg/dL (7.8-10.44); Carbon Dioxide 27 mmol/L (22-29); Chloride 93 mmol/L (98-107); Estimated GFR 50; Globulin 3.4 g/dL (2.4-3.5); Glucose 112 mg/dL (70-105); Magnesium 2.2 mg/dL (1.6-2.6); Potassium 4.8 mmol/L (3.5-5.1); Protein, Total 7.5 g/dL (6.0-8.3); Sodium 134 mmol/L (136-145)
[2023-04-06] MEDS: Furosemide 40 MG/4 ML VIAL SLOW IVP SCH ×2 (05:41→12:02)
[2023-04-06] MEDS: Lorazepam 1 MG TAB PO SCH (05:41)
[2023-04-06] MEDS: Sacubitril 24MG/Valsartan 26 MG TAB PO SCH ×2 (08:55→20:25)
[2023-04-06] MEDS: Famotidine 20 MG TAB PO SCH ×2 (08:55→20:26)
[2023-04-06] MEDS: Thiamine 100 MG TAB PO SCH (08:56)
[2023-04-06] MEDS: Spironolactone 25 MG TAB PO SCH (08:56)
[2023-04-06] MEDS: Carvedilol 6.25 MG TAB PO SCH ×2 (08:56→17:24)
[2023-04-06] MEDS: Aspirin 81 mg Enteric Coated Tablet PO SCH (08:56)
[2023-04-06] MEDS: Multivit, Therapeutic 1 TAB PO SCH (08:56)
[2023-04-06] MEDS: Folic Acid 1 MG TAB PO SCH (08:56)
[2023-04-06] MEDS: Empagliflozin 10 MG TAB PO SCH (08:56)
[2023-04-06] MEDS ORDERED: Lorazepam 1 MG TAB PO PRN (10:45)
[2023-04-06] MEDS ORDERED: Lorazepam 0.5 MG TAB PO PRN (10:53)
[2023-04-06] MEDS: Lorazepam 0.5 MG TAB PO SCH ×3 (12:02→23:46)
[2023-04-06] MEDS: DOBUTamine 500 mg/250 ml 250 ML IVPB SCH ×2 (15:23→20:23)
[2023-04-06] MEDS: Cholecalciferol 1,000 UNITS (25 MCG) TAB PO SCH (20:25)
[2023-04-06] MEDS: pyridOXINE 50 MG (B6) TAB PO SCH (20:26)
[2023-04-07] MEDS: Calcium Carbonate 500 MG ChewTAB PO PRN ×3 (00:16→20:29)
[2023-04-07 03:54] LABS: #Eosinphils 0.1 thou/uL (0.0-0.7); #Monocytes 0.8 thou/uL (0.11-0.59); #Neutrophils 4.4 thou/uL (1.40-6.50); %Basophils 0.5 % (0.0-1.0); %Eosinophils 1.1 % (0.0-10.0); %Lymphocytes 14.9 % (21.0-51.0); %Monocytes 13.3 % (0.0-10.0); %Neutrophils 69.9 % (42.0-75.0); Hematocrit 38.5 % (42.0-52.0); Hemoglobin 13.3 g/dL (14.0-18.0); Mean Corpuscular HGB CONC 34.5 g/dL (32.0-36.0); Mean Corpuscular Hemoglobin 33.5 pg (27.0-31.0); Mean Platelet Volume 11.8 fL (7.4-10.4); RBC Distribution Width 15.2 % (11.5-14.5); Red Blood Cell (RBC) Count 3.97 mill/uL (4.70-6.10); White Blood Cell (WBC) Count 6.3 10x3/uL (4.8-10.8)
[2023-04-07 04:01] LABS: Platelet Count 112 10x3/uL (130-400)
[2023-04-07 04:16] LABS: Anion Gap 21 mmol/L (10-20); BUN (Urea Nitrogen) 30 mg/dL (8.9-20.6); Calc. Creatinine Clearance 115 mL/min (70-130); Calcium 10.6 mg/dL (7.8-10.44); Carbon Dioxide 24 mmol/L (22-29); Chloride 92 mmol/L (98-107); Estimated GFR 73; Glucose 87 mg/dL (70-105); Potassium 3.9 mmol/L (3.5-5.1); Sodium 133 mmol/L (136-145)
[2023-04-07] MEDS: Furosemide 40 MG/4 ML VIAL SLOW IVP SCH ×2 (06:17→15:10)
[2023-04-07] MEDS: Lorazepam 0.5 MG TAB PO SCH (06:18)
[2023-04-07] MEDS: Thiamine 100 MG TAB PO SCH (09:40)
[2023-04-07] MEDS: Spironolactone 25 MG TAB PO SCH (09:41)
[2023-04-07] MEDS: Famotidine 20 MG TAB PO SCH ×2 (09:41→20:30)
[2023-04-07] MEDS: Aspirin 81 mg Enteric Coated Tablet PO SCH (09:41)
[2023-04-07] MEDS: Empagliflozin 10 MG TAB PO SCH (09:41)
[2023-04-07] MEDS: Carvedilol 6.25 MG TAB PO SCH ×2 (09:41→17:04)
[2023-04-07] MEDS: Multivit, Therapeutic 1 TAB PO SCH (09:41)
[2023-04-07] MEDS: Folic Acid 1 MG TAB PO SCH (09:41)
[2023-04-07] MEDS: Sacubitril 24MG/Valsartan 26 MG TAB PO SCH ×2 (09:41→20:30)
[2023-04-07] MEDS ORDERED: Lorazepam 0.5 MG TAB PO PRN ×2 (10:24→10:45)
[2023-04-07] MEDS: Cholecalciferol 1,000 UNITS (25 MCG) TAB PO SCH (20:30)
[2023-04-07] MEDS: pyridOXINE 50 MG (B6) TAB PO SCH (20:30)
[2023-04-07] MEDS: traZODone HCl 50 MG TAB PO PRN (23:12)
[2023-04-08] MEDS: Calcium Carbonate 500 MG ChewTAB PO PRN (03:01)
[2023-04-08] MEDS ORDERED: Guaifenesin DM 100-10/5 ML UDCUP PO PRN (04:36)
[2023-04-08] MEDS: Furosemide 40 MG/4 ML VIAL SLOW IVP SCH ×2 (05:20→14:17)
[2023-04-08 05:32] LABS: #Eosinphils 0.1 thou/uL (0.0-0.7); #Monocytes 0.7 thou/uL (0.11-0.59); #Neutrophils 3.3 thou/uL (1.40-6.50); %Basophils 0.6 % (0.0-1.0); %Eosinophils 1.2 % (0.0-10.0); %Lymphocytes 19.7 % (21.0-51.0); %Monocytes 13.8 % (0.0-10.0); %Neutrophils 64.5 % (42.0-75.0); Hematocrit 36.2 % (42.0-52.0); Hemoglobin 12.4 g/dL (14.0-18.0); Mean Corpuscular HGB CONC 34.3 g/dL (32.0-36.0); Mean Corpuscular Hemoglobin 33.4 pg (27.0-31.0); Mean Corpuscular Volume 97.6 fl (78.0-98.0); Mean Platelet Volume 12.1 fL (7.4-10.4); Platelet Count 107 10x3/uL (130-400); RBC Distribution Width 14.9 % (11.5-14.5); Red Blood Cell (RBC) Count 3.71 mill/uL (4.70-6.10); White Blood Cell (WBC) Count 5.1 10x3/uL (4.8-10.8)
[2023-04-08 05:55] LABS: Anion Gap 16 mmol/L (10-20); BUN (Urea Nitrogen) 23 mg/dL (8.9-20.6); Calc. Creatinine Clearance 132 mL/min (70-130); Calcium 10.7 mg/dL (7.8-10.44); Carbon Dioxide 31 mmol/L (22-29); Chloride 88 mmol/L (98-107); Estimated GFR 88; Glucose 97 mg/dL (70-105); Potassium 3.3 mmol/L (3.5-5.1); Sodium 132 mmol/L (136-145)
[2023-04-08] MEDS ORDERED: Lidocaine 2% Viscous Solution 10 ML, Aluminum & Magnesium Hydroxide 30 ML SSW SCH (06:00)
[2023-04-08] MEDS: Carvedilol 6.25 MG TAB PO SCH ×3 (08:45→16:31)
[2023-04-08] MEDS: Famotidine 20 MG TAB PO SCH ×2 (08:47→20:09)
[2023-04-08] MEDS: Aspirin 81 mg Enteric Coated Tablet PO SCH (08:47)
[2023-04-08] MEDS: Sacubitril 24MG/Valsartan 26 MG TAB PO SCH ×2 (08:47→20:08)
[2023-04-08] MEDS: Spironolactone 25 MG TAB PO SCH (08:48)
[2023-04-08] MEDS: Folic Acid 1 MG TAB PO SCH (08:49)
[2023-04-08] MEDS: Thiamine 100 MG TAB PO SCH (08:49)
[2023-04-08] MEDS: Empagliflozin 10 MG TAB PO SCH (08:49)
[2023-04-08] MEDS: Multivit, Therapeutic 1 TAB PO SCH (08:49)
[2023-04-08] MEDS ORDERED: Potassium Chloride 20 MEQ TAB PO SCH (10:00)
[2023-04-08] MEDS: Ondansetron ODT 4 MG TAB PO PRN (15:32)
[2023-04-08] MEDS: pyridOXINE 50 MG (B6) TAB PO SCH (20:08)
[2023-04-08] MEDS: DOBUTamine 500 mg/250 ml 250 ML IVPB SCH (20:08)
[2023-04-08] MEDS: traZODone HCl 50 MG TAB PO PRN (20:09)
[2023-04-08] MEDS: Cholecalciferol 1,000 UNITS (25 MCG) TAB PO SCH (20:09)
[2023-04-09 04:31] LABS: #Eosinphils 0.1 thou/uL (0.0-0.7); #Monocytes 0.9 thou/uL (0.11-0.59); #Neutrophils 3.6 thou/uL (1.40-6.50); %Basophils 0.3 % (0.0-1.0); %Eosinophils 1.2 % (0.0-10.0); %Lymphocytes 18.8 % (21.0-51.0); %Monocytes 16.2 % (0.0-10.0); %Neutrophils 63.2 % (42.0-75.0); Hematocrit 37.6 % (42.0-52.0); Hemoglobin 12.9 g/dL (14.0-18.0); Mean Corpuscular HGB CONC 34.3 g/dL (32.0-36.0); Mean Corpuscular Hemoglobin 33.7 pg (27.0-31.0); Mean Corpuscular Volume 98.2 fl (78.0-98.0); Mean Platelet Volume 11.9 fL (7.4-10.4); RBC Distribution Width 15.4 % (11.5-14.5); Red Blood Cell (RBC) Count 3.83 mill/uL (4.70-6.10); White Blood Cell (WBC) Count 5.8 10x3/uL (4.8-10.8)
[2023-04-09 04:53] LABS: Anion Gap 15 mmol/L (10-20); BUN (Urea Nitrogen) 19 mg/dL (8.9-20.6); Calc. Creatinine Clearance 129 mL/min (70-130); Calcium 10.6 mg/dL (7.8-10.44); Carbon Dioxide 34 mmol/L (22-29); Chloride 89 mmol/L (98-107); Estimated GFR 85; Glucose 109 mg/dL (70-105); Potassium 3.7 mmol/L (3.5-5.1); Sodium 134 mmol/L (136-145)
[2023-04-09 05:36] LABS: Platelet Count 116 10x3/uL (130-400)
[2023-04-09] MEDS: Furosemide 40 MG/4 ML VIAL SLOW IVP SCH ×2 (06:08→14:57)
[2023-04-09] MEDS: Multivit, Therapeutic 1 TAB PO SCH (09:43)
[2023-04-09] MEDS: Famotidine 20 MG TAB PO SCH ×2 (09:43→22:42)
[2023-04-09] MEDS: Sacubitril 24MG/Valsartan 26 MG TAB PO SCH ×2 (09:43→22:42)
[2023-04-09] MEDS: Aspirin 81 mg Enteric Coated Tablet PO SCH (09:44)
[2023-04-09] MEDS: Folic Acid 1 MG TAB PO SCH (09:44)
[2023-04-09] MEDS: Empagliflozin 10 MG TAB PO SCH (09:44)
[2023-04-09] MEDS: Carvedilol 6.25 MG TAB PO SCH ×2 (09:44→17:10)
[2023-04-09] MEDS: Spironolactone 25 MG TAB PO SCH (09:44)
[2023-04-09] MEDS: Thiamine 100 MG TAB PO SCH (09:44)
[2023-04-09] MEDS ORDERED: Potassium Chloride 20 MEQ TAB PO SCH (10:00)
[2023-04-09] MEDS: DOBUTamine 500 mg/250 ml 250 ML IVPB SCH ×2 (10:04→17:18)
[2023-04-09] MEDS ORDERED: hydrOXYzine 25 MG TAB PO SCH (21:45)
[2023-04-09] MEDS: Cholecalciferol 1,000 UNITS (25 MCG) TAB PO SCH (22:42)
[2023-04-09] MEDS: pyridOXINE 50 MG (B6) TAB PO SCH ×2 (22:42→22:48)
[2023-04-10] MEDS: traZODone HCl 50 MG TAB PO PRN (01:29)
[2023-04-10 03:57] LABS: #Eosinphils 0.1 thou/uL (0.0-0.7); #Neutrophils 3.8 thou/uL (1.40-6.50); %Basophils 0.6 % (0.0-1.0); %Eosinophils 1.1 % (0.0-10.0); %Neutrophils 60.8 % (42.0-75.0); Hematocrit 39.8 % (42.0-52.0); Hemoglobin 13.4 g/dL (14.0-18.0); Mean Corpuscular HGB CONC 33.7 g/dL (32.0-36.0); Mean Corpuscular Hemoglobin 33.2 pg (27.0-31.0); Mean Corpuscular Volume 98.5 fl (78.0-98.0); Mean Platelet Volume 11.3 fL (7.4-10.4); Platelet Count 120 10x3/uL (130-400); RBC Distribution Width 15.3 % (11.5-14.5); Red Blood Cell (RBC) Count 4.04 mill/uL (4.70-6.10); White Blood Cell (WBC) Count 6.2 10x3/uL (4.8-10.8)
[2023-04-10] MEDS: Furosemide 40 MG/4 ML VIAL SLOW IVP SCH (06:42)
[2023-04-10 08:11] VITALS: BP 110/72; TEMP 97.6
[2023-04-10] MEDS: Carvedilol 6.25 MG TAB PO SCH (09:04)
[2023-04-10] MEDS: Spironolactone 25 MG TAB PO SCH (09:05)
[2023-04-10] MEDS: Aspirin 81 mg Enteric Coated Tablet PO SCH (09:06)
[2023-04-10] MEDS: Sacubitril 24MG/Valsartan 26 MG TAB PO SCH (09:08)
[2023-04-10] MEDS: Folic Acid 1 MG TAB PO SCH (09:08)
[2023-04-10] MEDS: Thiamine 100 MG TAB PO SCH (09:09)
[2023-04-10] MEDS: Multivit, Therapeutic 1 TAB PO SCH (09:09)
[2023-04-10] MEDS: Empagliflozin 10 MG TAB PO SCH (09:13)
[2023-04-10] MEDS: Famotidine 20 MG TAB PO SCH (09:13)
== END 2023-04-10 11:44 | disposition home or self-care (01) | DRG 292 ==
LOC: ERS 07:53 → ERHOLD 10:44 → 2NO 14:28
PROVIDERS: ADMIT Internal Medicine; ATTEND Internal Medicine
PROC: 0W9G3ZZ Drainage of Peritoneal Cavity, Percutaneous Approach (ICD-10-PCS; principal; 2023-04-04)
DX: I50.23 Acute on chronic systolic (congestive) heart failure (principal); I42.8 Other cardiomyopathies; R18.8 Other ascites; I47.20 Ventricular tachycardia, unspecified; N17.9 Acute kidney failure, unspecified; I13.10 Hypertensive heart and chronic kidney disease without heart failure, with stage 1 through stage 4 chronic kidney disease, or unspecified chronic kidney disease; F41.9 Anxiety disorder, unspecified; E87.6 Hypokalemia; E83.42 Hypomagnesemia; F10.20 Alcohol dependence, uncomplicated; D69.6 Thrombocytopenia, unspecified; K70.9 Alcoholic liver disease, unspecified; I08.2 Rheumatic disorders of both aortic and tricuspid valves; E11.22 Type 2 diabetes mellitus with diabetic chronic kidney disease; N18.9 Chronic kidney disease, unspecified; K70.10 Alcoholic hepatitis without ascites; Z88.5 Allergy status to narcotic agent; Z79.899 Other long term (current) drug therapy; Z95.810 Presence of automatic (implantable) cardiac defibrillator
CPT/HCPCS: 36415; 36416; 49083; 71045; 71275; 76705; 80048; 80053; 80307; 82042; 82105; 83735; 83880; 84100; 84157; 84484; 85025; 85060; 85379; 85610; 85730; 87070; 87205; 89051; 93005; 93798; 94760; 96365; 96366; 96375; J1250; J1940; J2060; J3411; J3475; Q0162; Q9967

== ENCOUNTER 2023-07-14 23:12 | Inpatient (IN) | payer OTHER, SELFPAY ==
[2023-07-14 23:43] LABS: #Basophils 0.1 thou/uL (0.0-0.2); #Monocytes 1.1 thou/uL (0.11-0.59); #Neutrophils 3.7 thou/uL (1.40-6.50); %Basophils 1.4 % (0.0-1.0); %Eosinophils 0.4 % (0.0-10.0); %Lymphocytes 27.8 % (21.0-51.0); %Neutrophils 53.3 % (42.0-75.0); Hematocrit 40.8 % (42.0-52.0); Hemoglobin 13.6 g/dL (14.0-18.0); Mean Corpuscular HGB CONC 33.3 g/dL (32.0-36.0); Mean Corpuscular Hemoglobin 31.9 pg (27.0-31.0); Mean Corpuscular Volume 95.8 fl (78.0-98.0); Mean Platelet Volume 10.6 fL (7.4-10.4); Platelet Count 205 10x3/uL (130-400); RBC Distribution Width 19.6 % (11.5-14.5); Red Blood Cell (RBC) Count 4.26 mill/uL (4.70-6.10)
[2023-07-15 00:05] LABS: ALT (SGPT) 24 U/L (8-55); AST (SGOT) 33 U/L (5-34); Albumin 4.6 g/dL (3.5-5.0); Alkaline Phosphatase 156 U/L (40-110); Anion Gap 21 mmol/L (10-20); BUN (Urea Nitrogen) 35 mg/dL (8.9-20.6); Bilirubin, Total 1.7 mg/dL (0.2-1.2); Calc. Creatinine Clearance 0 mL/min (70-130); Calcium 9.4 mg/dL (7.8-10.44); Carbon Dioxide 27 mmol/L (22-29); Chloride 91 mmol/L (98-107); Estimated GFR 64; Globulin 3.2 g/dL (2.4-3.5); Glucose 99 mg/dL (70-105); Potassium 3.9 mmol/L (3.5-5.1); Protein, Total 7.8 g/dL (6.0-8.3); Sodium 135 mmol/L (136-145)
[2023-07-15 00:09] LABS: Troponin I 0.047 ng/mL (< 0.028)
[2023-07-15 00:49] LABS: Magnesium 1.9 mg/dL (1.6-2.6)
[2023-07-15 01:12] LABS: SARS-CoV-2 NAA Rapid Test Not Detected (NotDetected)
[2023-07-15] MEDS ORDERED: Bumetanide 1 MG/4 ML VIAL IVP SCH (01:30)
[2023-07-15 02:40] LABS: Acetaminophen Less than 10 mcg/mL (10.0-30.0); Alcohol 293.4 mg/dL (Less than 10); Salicylate Less than 8.0 mg/dL (15.0-30.0)
[2023-07-15] MEDS ORDERED: ENOXAPARIN IVPB PRN (02:43)
[2023-07-15] MEDS ORDERED: Ondansetron ODT 4 MG TAB PO PRN (02:57)
[2023-07-15] MEDS ORDERED: Lorazepam 1 MG TAB PO PRN (02:57)
[2023-07-15] MEDS ORDERED: Lorazepam 2 MG/ML VIAL IM PRN (02:57)
[2023-07-15] MEDS ORDERED: Acetaminophen 650 MG Suppository PR PRN (02:59)
[2023-07-15] MEDS ORDERED: Acetaminophen 325 MG TAB PO PRN (02:59)
[2023-07-15] MEDS ORDERED: Electrolyte Replacement Protocol FS SCH (03:00)
[2023-07-15] MEDS ORDERED: Thiamine HCl 200 MG/2 ML VIAL ONE (03:22)
[2023-07-15] MEDS: Lorazepam 1 MG TAB PO SCH ×4 (03:29→20:07)
[2023-07-15] MEDS: Thiamine HCl 200 MG/2 ML VIAL SLOW IVP SCH (03:30)
[2023-07-15 06:01] LABS: Magnesium 2.4 mg/dL (1.6-2.6); Phosphorus 4.1 mg/dL (2.3-4.7)
[2023-07-15 06:05] LABS: Troponin I 0.043 ng/mL (< 0.028); Troponin I 0.057 ng/mL (< 0.028)
[2023-07-15] MEDS ORDERED: Folic Acid 1 MG TAB ONE (08:29)
[2023-07-15] MEDS ORDERED: hydrOXYzine 25 MG TAB ONE (08:30)
[2023-07-15] MEDS ORDERED: Lorazepam 1 MG TAB ONE (08:30)
[2023-07-15] MEDS ORDERED: Carvedilol 6.25 MG TAB ONE (08:30)
[2023-07-15] MEDS ORDERED: Thiamine 100 MG TAB ONE (08:30)
[2023-07-15] MEDS ORDERED: Famotidine 20 MG TAB ONE (08:30)
[2023-07-15] MEDS ORDERED: Multivit, Therapeutic 1 TAB ONE (08:31)
[2023-07-15] MEDS ORDERED: Enoxaparin 60 MG (0.6 mL) SYRINGE ONE (08:31)
[2023-07-15] MEDS ORDERED: Non-Formulary Item 1 EACH (Multivitamin [Multivitamin] 1 EACH Tablet) PO SCH (09:00)
[2023-07-15] MEDS ORDERED: Folic Acid 1 MG TAB PO SCH (09:00)
[2023-07-15] MEDS: Carvedilol 3.125 MG TAB PO SCH ×2 (09:05→16:40)
[2023-07-15] MEDS: Empagliflozin 10 MG TAB PO SCH (09:06)
[2023-07-15] MEDS: Escitalopram Oxalate 10 mg Tablet PO SCH (09:07)
[2023-07-15] MEDS: Famotidine 20 MG TAB PO SCH ×2 (09:07→23:30)
[2023-07-15] MEDS: hydrOXYzine 25 MG TAB PO SCH ×3 (09:08→20:08)
[2023-07-15] MEDS: Magnesium Oxide 250 MG TAB PO SCH (09:09)
[2023-07-15] MEDS: Thiamine 100 MG TAB PO SCH (09:10)
[2023-07-15] MEDS: Multivit, Therapeutic 1 TAB PO SCH (09:10)
[2023-07-15] MEDS: Spironolactone 100 MG TAB PO SCH (09:10)
[2023-07-15] MEDS: Enoxaparin 120 MG/0.8 ML SYRINGE SC SCH ×2 (09:11→20:06)
[2023-07-15] MEDS: Cyanocobalamin (Vitamin B-12) 1,000 MCG TAB PO SCH (09:41)
[2023-07-15] MEDS: Ondansetron ODT 4 MG TAB PO PRN ×2 (14:04→20:08)
[2023-07-15] MEDS: Furosemide 100 MG (10 mL) VIAL SLOW IVP SCH (14:06)
[2023-07-15] MEDS ORDERED: FLU VACC QS2023-24(6MOS UP)/PF 60 MCG/0.5 ML SYRINGE IM ONE (14:45)
[2023-07-15] MEDS: ALPRAZolam 0.25 MG TAB PO SCH (20:07)
[2023-07-15] MEDS: QUEtiapine 25 MG TAB PO SCH (20:07)
[2023-07-15] MEDS: Melatonin 3 MG TAB PO SCH (20:08)
[2023-07-16] MEDS ORDERED: Lorazepam 1 MG TAB PO PRN (02:58)
[2023-07-16] MEDS: Lorazepam 1 MG TAB PO SCH ×4 (03:50→21:34)
[2023-07-16] MEDS: Thiamine HCl 200 MG/2 ML VIAL SLOW IVP SCH (03:50)
[2023-07-16 04:28] LABS: #Basophils 0.1 thou/uL (0.0-0.2); #Monocytes 1.2 thou/uL (0.11-0.59); #Neutrophils 5.4 thou/uL (1.40-6.50); %Basophils 1.4 % (0.0-1.0); %Lymphocytes 16.9 % (21.0-51.0); %Monocytes 14.8 % (0.0-10.0); %Neutrophils 66.4 % (42.0-75.0); Hematocrit 41.1 % (42.0-52.0); Hemoglobin 13.6 g/dL (14.0-18.0); Mean Corpuscular HGB CONC 33.1 g/dL (32.0-36.0); Mean Corpuscular Hemoglobin 32.2 pg (27.0-31.0); Mean Corpuscular Volume 97.4 fl (78.0-98.0); Platelet Count 175 10x3/uL (130-400); RBC Distribution Width 19.5 % (11.5-14.5); Red Blood Cell (RBC) Count 4.22 mill/uL (4.70-6.10); White Blood Cell (WBC) Count 8.1 10x3/uL (4.8-10.8)
[2023-07-16 05:10] LABS: ALT (SGPT) 22 U/L (8-55); AST (SGOT) 34 U/L (5-34); Albumin 4.7 g/dL (3.5-5.0); Alkaline Phosphatase 135 U/L (40-110); BUN (Urea Nitrogen) 36 mg/dL (8.9-20.6); Bilirubin, Total 4.2 mg/dL (0.2-1.2); Calc. Creatinine Clearance 110 mL/min (70-130); Calcium 10.1 mg/dL (7.8-10.44); Carbon Dioxide 25 mmol/L (22-29); Chloride 92 mmol/L (98-107); Estimated GFR 71; Globulin 3.3 g/dL (2.4-3.5); Glucose 96 mg/dL (70-105); Potassium 4.4 mmol/L (3.5-5.1); Sodium 133 mmol/L (136-145)
[2023-07-16 05:27] LABS: Anion Gap 22 mmol/L (10-20)
[2023-07-16] MEDS: Furosemide 100 MG (10 mL) VIAL SLOW IVP SCH ×2 (06:02→15:10)
[2023-07-16] MEDS: hydrOXYzine 25 MG TAB PO SCH ×3 (08:20→21:34)
[2023-07-16] MEDS: Empagliflozin 10 MG TAB PO SCH (08:20)
[2023-07-16] MEDS: Cyanocobalamin (Vitamin B-12) 1,000 MCG TAB PO SCH (08:20)
[2023-07-16] MEDS: Spironolactone 100 MG TAB PO SCH ×2 (08:20→08:22)
[2023-07-16] MEDS: CO Q-10 CAPSULE 100 MG PO SCH (08:20)
[2023-07-16] MEDS: Magnesium Oxide 250 MG TAB PO SCH (08:21)
[2023-07-16] MEDS: Folic Acid 1 MG TAB PO SCH (08:21)
[2023-07-16] MEDS: Carvedilol 3.125 MG TAB PO SCH ×2 (08:21→17:25)
[2023-07-16] MEDS: Enoxaparin 120 MG/0.8 ML SYRINGE SC SCH ×2 (08:22→21:35)
[2023-07-16] MEDS: Aspirin 81 mg Enteric Coated Tablet PO SCH (08:22)
[2023-07-16] MEDS: Escitalopram Oxalate 10 mg Tablet PO SCH (08:23)
[2023-07-16] MEDS: Escitalopram Oxalate 20 mg Tablet PO SCH (08:23)
[2023-07-16] MEDS: Famotidine 20 MG TAB PO SCH ×2 (08:23→21:35)
[2023-07-16] MEDS: Multivit, Therapeutic 1 TAB PO SCH (08:25)
[2023-07-16] MEDS: Fenofibrate 48 MG TAB PO SCH (08:25)
[2023-07-16] MEDS: Thiamine 100 MG TAB PO SCH (08:26)
[2023-07-16] MEDS: prednisoLONE 10 MG ODT TAB PO SCH (11:34)
[2023-07-16] MEDS ORDERED: chlordiazePOXIDE HCl 25 MG CAP PO SCH ×2 (21:00)
[2023-07-16] MEDS: Melatonin 3 MG TAB PO SCH (21:34)
[2023-07-16] MEDS: ALPRAZolam 0.25 MG TAB PO SCH (21:35)
[2023-07-16] MEDS: QUEtiapine 25 MG TAB PO SCH (21:35)
[2023-07-16] MEDS: chlordiazePOXIDE HCl 5 MG CAP PO SCH (21:39)
[2023-07-17] MEDS: Lorazepam 0.5 MG TAB PO SCH ×4 (02:56→20:33)
[2023-07-17] MEDS: Thiamine HCl 200 MG/2 ML VIAL SLOW IVP SCH (02:57)
[2023-07-17] MEDS ORDERED: Lorazepam 1 MG TAB PO PRN (02:58)
[2023-07-17] MEDS: Furosemide 100 MG (10 mL) VIAL SLOW IVP SCH ×2 (05:28→13:36)
[2023-07-17 06:05] LABS: #Monocytes 0.8 thou/uL (0.11-0.59); #Neutrophils 3.9 thou/uL (1.40-6.50); %Basophils 0.2 % (0.0-1.0); %Lymphocytes 16.1 % (21.0-51.0); %Monocytes 14.7 % (0.0-10.0); %Neutrophils 68.5 % (42.0-75.0); Hematocrit 37.3 % (42.0-52.0); Hemoglobin 12.6 g/dL (14.0-18.0); Mean Corpuscular HGB CONC 33.8 g/dL (32.0-36.0); Mean Corpuscular Hemoglobin 32.3 pg (27.0-31.0); Mean Corpuscular Volume 95.6 fl (78.0-98.0); Mean Platelet Volume 10.9 fL (7.4-10.4); Platelet Count 178 10x3/uL (130-400); RBC Distribution Width 18.9 % (11.5-14.5); White Blood Cell (WBC) Count 5.7 10x3/uL (4.8-10.8)
[2023-07-17 06:10] LABS: Anion Gap 21 mmol/L (10-20); BUN (Urea Nitrogen) 47 mg/dL (8.9-20.6); Calc. Creatinine Clearance 85 mL/min (70-130); Carbon Dioxide 26 mmol/L (22-29); Chloride 91 mmol/L (98-107); Estimated GFR 52; Glucose 111 mg/dL (70-105); Magnesium 2.1 mg/dL (1.6-2.6); Phosphorus 5.2 mg/dL (2.3-4.7); Potassium 4.6 mmol/L (3.5-5.1); Sodium 133 mmol/L (136-145)
[2023-07-17] MEDS: Enoxaparin 120 MG/0.8 ML SYRINGE SC SCH ×2 (10:29→20:34)
[2023-07-17] MEDS: hydrOXYzine 25 MG TAB PO SCH ×3 (10:30→20:33)
[2023-07-17] MEDS: prednisoLONE 10 MG ODT TAB PO SCH (10:30)
[2023-07-17] MEDS: Famotidine 20 MG TAB PO SCH (10:30)
[2023-07-17] MEDS: Escitalopram Oxalate 20 mg Tablet PO SCH (10:31)
[2023-07-17] MEDS: Fenofibrate 48 MG TAB PO SCH (10:31)
[2023-07-17] MEDS: Empagliflozin 10 MG TAB PO SCH (10:32)
[2023-07-17] MEDS: Carvedilol 3.125 MG TAB PO SCH ×2 (10:32→16:26)
[2023-07-17] MEDS: Magnesium Oxide 250 MG TAB PO SCH (10:32)
[2023-07-17] MEDS: Cyanocobalamin (Vitamin B-12) 1,000 MCG TAB PO SCH (10:33)
[2023-07-17] MEDS: Folic Acid 1 MG TAB PO SCH (10:33)
[2023-07-17] MEDS: Spironolactone 100 MG TAB PO SCH (10:33)
[2023-07-17] MEDS: CO Q-10 CAPSULE 100 MG PO SCH (10:33)
[2023-07-17] MEDS: Multivit, Therapeutic 1 TAB PO SCH (10:34)
[2023-07-17] MEDS: Aspirin 81 mg Enteric Coated Tablet PO SCH (10:34)
[2023-07-17] MEDS ORDERED: Lactated Ringer's 500 ML IV SCH (11:15)
[2023-07-17] MEDS: chlordiazePOXIDE HCl 5 MG CAP PO SCH ×3 (11:51→21:23)
[2023-07-17 12:03] LABS: ALT (SGPT) 25 U/L (8-55); AST (SGOT) 39 U/L (5-34); Albumin 4.3 g/dL (3.5-5.0); Alkaline Phosphatase 123 U/L (40-110); Bilirubin, Direct 3.2 mg/dL (0.1-0.3); Bilirubin, Total 5.2 mg/dL (0.2-1.2); Protein, Total 7.3 g/dL (6.0-8.3)
[2023-07-17 17:41] LABS: INR-International Normal Ratio 1.6; Prothrombin Time 19.1 sec (12.0-14.7)
[2023-07-17 17:42] LABS: PTT 37.6 sec (22.9-36.1)
[2023-07-17 17:43] LABS: Acetaminophen Less than 10 mcg/mL (10.0-30.0)
[2023-07-17] MEDS ORDERED: traMADol HCl 50 MG TAB PO SCH (19:45)
[2023-07-17] MEDS: ALPRAZolam 0.25 MG TAB PO SCH (20:33)
[2023-07-17] MEDS: Melatonin 3 MG TAB PO SCH (20:34)
[2023-07-17] MEDS: QUEtiapine 25 MG TAB PO SCH (20:34)
[2023-07-18] MEDS ORDERED: Lorazepam 0.5 MG TAB PO PRN (02:58)
[2023-07-18 05:54] LABS: Iron 75 ug/dL (65-175); Iron Binding Capacity, Total 318 mcg/dL (261-462)
[2023-07-18] MEDS: Furosemide 100 MG (10 mL) VIAL SLOW IVP SCH ×2 (06:10→13:27)
[2023-07-18] MEDS ORDERED: DOBUTamine 500 mg/250 ml 250 ML IVPB SCH (08:30)
[2023-07-18 08:39] LABS: #Monocytes 0.7 thou/uL (0.11-0.59); #Neutrophils 6.3 thou/uL (1.40-6.50); %Basophils 0.1 % (0.0-1.0); %Lymphocytes 14.7 % (21.0-51.0); %Monocytes 8.7 % (0.0-10.0); Hematocrit 38.8 % (42.0-52.0); Mean Corpuscular HGB CONC 33.5 g/dL (32.0-36.0); Mean Corpuscular Hemoglobin 32.4 pg (27.0-31.0); Mean Corpuscular Volume 96.8 fl (78.0-98.0); Mean Platelet Volume 11.1 fL (7.4-10.4); Platelet Count 202 10x3/uL (130-400); RBC Distribution Width 19.2 % (11.5-14.5); Red Blood Cell (RBC) Count 4.01 mill/uL (4.70-6.10); White Blood Cell (WBC) Count 8.3 10x3/uL (4.8-10.8)
[2023-07-18 09:01] LABS: ALT (SGPT) 34 U/L (8-55); AST (SGOT) 55 U/L (5-34); Albumin 4.5 g/dL (3.5-5.0); Alkaline Phosphatase 134 U/L (40-110); Anion Gap 18 mmol/L (10-20); BUN (Urea Nitrogen) 57 mg/dL (8.9-20.6); Bilirubin, Total 5.2 mg/dL (0.2-1.2); Calc. Creatinine Clearance 72 mL/min (70-130); Carbon Dioxide 27 mmol/L (22-29); Chloride 88 mmol/L (98-107); Estimated GFR 42; Globulin 3.1 g/dL (2.4-3.5); Glucose 138 mg/dL (70-105); Potassium 4.9 mmol/L (3.5-5.1); Protein, Total 7.6 g/dL (6.0-8.3); Sodium 128 mmol/L (136-145)
[2023-07-18] MEDS: hydrOXYzine 25 MG TAB PO SCH ×3 (10:24→21:54)
[2023-07-18] MEDS: Multivit, Therapeutic 1 TAB PO SCH (10:24)
[2023-07-18] MEDS: Spironolactone 100 MG TAB PO SCH (10:25)
[2023-07-18] MEDS: Fenofibrate 48 MG TAB PO SCH (10:25)
[2023-07-18] MEDS: Empagliflozin 10 MG TAB PO SCH (10:25)
[2023-07-18] MEDS: Escitalopram Oxalate 20 mg Tablet PO SCH (10:25)
[2023-07-18] MEDS: Aspirin 81 mg Enteric Coated Tablet PO SCH (10:25)
[2023-07-18] MEDS: Cyanocobalamin (Vitamin B-12) 1,000 MCG TAB PO SCH (10:25)
[2023-07-18] MEDS: Folic Acid 1 MG TAB PO SCH (10:25)
[2023-07-18] MEDS: CO Q-10 CAPSULE 100 MG PO SCH (10:26)
[2023-07-18] MEDS: Magnesium Oxide 250 MG TAB PO SCH (10:26)
[2023-07-18] MEDS: Thiamine 100 MG TAB PO SCH (10:26)
[2023-07-18] MEDS: chlordiazePOXIDE HCl 5 MG CAP PO SCH ×3 (10:27→22:01)
[2023-07-18] MEDS: Enoxaparin 120 MG/0.8 ML SYRINGE SC SCH ×2 (10:27→21:54)
[2023-07-18] MEDS: Carvedilol 3.125 MG TAB PO SCH (10:46)
[2023-07-18] MEDS: Ketorolac Tromethamine 30 MG (1 mL) VIAL IVP SCH (14:23)
[2023-07-18] MEDS: QUEtiapine 25 MG TAB PO SCH (21:54)
[2023-07-18] MEDS: ALPRAZolam 0.25 MG TAB PO SCH (21:54)
[2023-07-18] MEDS: Melatonin 3 MG TAB PO SCH (22:38)
[2023-07-19] MEDS: Furosemide 100 MG (10 mL) VIAL SLOW IVP SCH ×2 (06:14→14:27)
[2023-07-19 06:32] LABS: #Eosinphils 0.1 thou/uL (0.0-0.7); #Monocytes 0.8 thou/uL (0.11-0.59); #Neutrophils 8.4 thou/uL (1.40-6.50); %Basophils 0.4 % (0.0-1.0); %Eosinophils 0.6 % (0.0-10.0); %Monocytes 7.2 % (0.0-10.0); %Neutrophils 80.4 % (42.0-75.0); Hematocrit 35.6 % (42.0-52.0); Mean Corpuscular HGB CONC 33.7 g/dL (32.0-36.0); Mean Corpuscular Hemoglobin 31.8 pg (27.0-31.0); Mean Corpuscular Volume 94.4 fl (78.0-98.0); Mean Platelet Volume 11.2 fL (7.4-10.4); Platelet Count 176 10x3/uL (130-400); RBC Distribution Width 19.3 % (11.5-14.5); Red Blood Cell (RBC) Count 3.77 mill/uL (4.70-6.10); White Blood Cell (WBC) Count 10.4 10x3/uL (4.8-10.8)
[2023-07-19 07:00] LABS: ALT (SGPT) 32 U/L (8-55); AST (SGOT) 44 U/L (5-34); Albumin 4.2 g/dL (3.5-5.0); Alkaline Phosphatase 137 U/L (40-110); Anion Gap 15 mmol/L (10-20); BUN (Urea Nitrogen) 53 mg/dL (8.9-20.6); Bilirubin, Total 3.3 mg/dL (0.2-1.2); Calc. Creatinine Clearance 76 mL/min (70-130); Calcium 9.8 mg/dL (7.8-10.44); Carbon Dioxide 31 mmol/L (22-29); Chloride 89 mmol/L (98-107); Estimated GFR 46; Globulin 3.1 g/dL (2.4-3.5); Glucose 103 mg/dL (70-105); Potassium 3.7 mmol/L (3.5-5.1); Protein, Total 7.3 g/dL (6.0-8.3); Sodium 131 mmol/L (136-145)
[2023-07-19] MEDS: Aspirin 81 mg Enteric Coated Tablet PO SCH (11:34)
[2023-07-19] MEDS: Spironolactone 100 MG TAB PO SCH (11:34)
[2023-07-19] MEDS: Empagliflozin 10 MG TAB PO SCH (11:35)
[2023-07-19] MEDS: Enoxaparin 120 MG/0.8 ML SYRINGE SC SCH ×2 (11:35→21:07)
[2023-07-19] MEDS: Cyanocobalamin (Vitamin B-12) 1,000 MCG TAB PO SCH (11:35)
[2023-07-19] MEDS: hydrOXYzine 25 MG TAB PO SCH ×3 (11:37→21:07)
[2023-07-19] MEDS: Folic Acid 1 MG TAB PO SCH (11:37)
[2023-07-19] MEDS: Fenofibrate 48 MG TAB PO SCH (11:37)
[2023-07-19] MEDS: Escitalopram Oxalate 20 mg Tablet PO SCH (11:37)
[2023-07-19] MEDS: Magnesium Oxide 250 MG TAB PO SCH (11:38)
[2023-07-19] MEDS: Multivit, Therapeutic 1 TAB PO SCH (11:38)
[2023-07-19] MEDS: CO Q-10 CAPSULE 100 MG PO SCH (11:39)
[2023-07-19] MEDS: Thiamine 100 MG TAB PO SCH (11:39)
[2023-07-19] MEDS ORDERED: Escitalopram Oxalate 20 mg Tablet PO SCH (11:45)
[2023-07-19] MEDS: chlordiazePOXIDE HCl 5 MG CAP PO SCH ×3 (14:27→22:18)
[2023-07-19] MEDS: Ketorolac Tromethamine 30 MG (1 mL) VIAL IVP SCH (15:59)
[2023-07-19] MEDS: DOBUTamine 500 mg/250 ml 250 ML IVPB SCH (17:23)
[2023-07-19] MEDS: ALPRAZolam 0.25 MG TAB PO SCH (21:07)
[2023-07-19] MEDS: QUEtiapine 25 MG TAB PO SCH (21:07)
[2023-07-19] MEDS: Melatonin 3 MG TAB PO SCH (21:08)
[2023-07-19] MEDS ORDERED: Acetaminophen 325 MG TAB PO SCH (21:30)
[2023-07-19] MEDS ORDERED: Ketorolac Tromethamine 30 MG (1 mL) VIAL IVP SCH ×2 (21:30)
[2023-07-20] MEDS: Furosemide 100 MG (10 mL) VIAL SLOW IVP SCH ×2 (05:47→15:13)
[2023-07-20 06:47] LABS: #Eosinphils 0.1 thou/uL (0.0-0.7); #Monocytes 0.6 thou/uL (0.11-0.59); #Neutrophils 6.7 thou/uL (1.40-6.50); %Basophils 0.3 % (0.0-1.0); %Eosinophils 0.9 % (0.0-10.0); %Lymphocytes 15.2 % (21.0-51.0); %Monocytes 6.6 % (0.0-10.0); %Neutrophils 76.5 % (42.0-75.0); Hemoglobin 12.3 g/dL (14.0-18.0); Mean Corpuscular HGB CONC 33.2 g/dL (32.0-36.0); Mean Corpuscular Hemoglobin 32.1 pg (27.0-31.0); Mean Corpuscular Volume 96.6 fl (78.0-98.0); Mean Platelet Volume 10.9 fL (7.4-10.4); Platelet Count 166 10x3/uL (130-400); RBC Distribution Width 19.9 % (11.5-14.5); Red Blood Cell (RBC) Count 3.83 mill/uL (4.70-6.10); White Blood Cell (WBC) Count 8.7 10x3/uL (4.8-10.8)
[2023-07-20 07:11] LABS: ALT (SGPT) 30 U/L (8-55); AST (SGOT) 46 U/L (5-34); Albumin 4.3 g/dL (3.5-5.0); Alkaline Phosphatase 138 U/L (40-110); Anion Gap 18 mmol/L (10-20); BUN (Urea Nitrogen) 42 mg/dL (8.9-20.6); Calc. Creatinine Clearance 102 mL/min (70-130); Calcium 9.7 mg/dL (7.8-10.44); Carbon Dioxide 31 mmol/L (22-29); Chloride 86 mmol/L (98-107); Estimated GFR 64; Globulin 3.1 g/dL (2.4-3.5); Glucose 80 mg/dL (70-105); Potassium 3.5 mmol/L (3.5-5.1); Protein, Total 7.4 g/dL (6.0-8.3); Sodium 131 mmol/L (136-145)
[2023-07-20] MEDS: Enoxaparin 120 MG/0.8 ML SYRINGE SC SCH ×2 (09:24→21:52)
[2023-07-20] MEDS: hydrOXYzine 25 MG TAB PO SCH ×3 (09:24→21:52)
[2023-07-20] MEDS: Aspirin 81 mg Enteric Coated Tablet PO SCH (09:25)
[2023-07-20] MEDS: Multivit, Therapeutic 1 TAB PO SCH (09:25)
[2023-07-20] MEDS: Empagliflozin 10 MG TAB PO SCH (09:25)
[2023-07-20] MEDS: Thiamine 100 MG TAB PO SCH (09:25)
[2023-07-20] MEDS: Magnesium Oxide 250 MG TAB PO SCH (09:25)
[2023-07-20] MEDS: Cyanocobalamin (Vitamin B-12) 1,000 MCG TAB PO SCH (09:25)
[2023-07-20] MEDS: Folic Acid 1 MG TAB PO SCH (09:25)
[2023-07-20] MEDS: chlordiazePOXIDE HCl 5 MG CAP PO SCH ×3 (09:25→21:51)
[2023-07-20] MEDS: CO Q-10 CAPSULE 100 MG PO SCH (09:25)
[2023-07-20] MEDS: Escitalopram Oxalate 20 mg Tablet PO SCH (09:25)
[2023-07-20] MEDS: Spironolactone 100 MG TAB PO SCH (09:25)
[2023-07-20] MEDS: Fenofibrate 48 MG TAB PO SCH (09:28)
[2023-07-20] MEDS ORDERED: Potassium Chloride 20 MEQ TAB PO SCH (14:00)
[2023-07-20] MEDS: Ketorolac Tromethamine 30 MG (1 mL) VIAL IVP SCH (16:09)
[2023-07-20] MEDS: ALPRAZolam 0.25 MG TAB PO SCH (21:51)
[2023-07-20] MEDS: Melatonin 3 MG TAB PO SCH (21:52)
[2023-07-20] MEDS: QUEtiapine 25 MG TAB PO SCH (21:52)
[2023-07-21] MEDS ORDERED: Lidocaine 4% Patch TD SCH (01:45)
[2023-07-21] MEDS ORDERED: Ketorolac Tromethamine 30 MG (1 mL) VIAL IVP SCH (01:45)
[2023-07-21] MEDS: DOBUTamine 500 mg/250 ml 250 ML IVPB SCH (05:30)
[2023-07-21 06:26] LABS: #Basophils 0.1 thou/uL (0.0-0.2); #Eosinphils 0.1 thou/uL (0.0-0.7); #Monocytes 0.7 thou/uL (0.11-0.59); #Neutrophils 6.8 thou/uL (1.40-6.50); %Basophils 0.6 % (0.0-1.0); %Eosinophils 1.1 % (0.0-10.0); %Lymphocytes 14.7 % (21.0-51.0); %Monocytes 8.2 % (0.0-10.0); %Neutrophils 74.8 % (42.0-75.0); Hematocrit 35.3 % (42.0-52.0); Hemoglobin 12.2 g/dL (14.0-18.0); Mean Corpuscular HGB CONC 34.6 g/dL (32.0-36.0); Mean Corpuscular Hemoglobin 32.7 pg (27.0-31.0); Mean Corpuscular Volume 94.6 fl (78.0-98.0); Mean Platelet Volume 10.5 fL (7.4-10.4); Platelet Count 147 10x3/uL (130-400); RBC Distribution Width 19.6 % (11.5-14.5); Red Blood Cell (RBC) Count 3.73 mill/uL (4.70-6.10)
[2023-07-21 06:41] LABS: ALT (SGPT) 28 U/L (8-55); AST (SGOT) 40 U/L (5-34); Albumin 4.2 g/dL (3.5-5.0); Alkaline Phosphatase 127 U/L (40-110); Anion Gap 14 mmol/L (10-20); BUN (Urea Nitrogen) 36 mg/dL (8.9-20.6); Bilirubin, Total 3.5 mg/dL (0.2-1.2); Calc. Creatinine Clearance 115 mL/min (70-130); Calcium 9.5 mg/dL (7.8-10.44); Carbon Dioxide 30 mmol/L (22-29); Chloride 90 mmol/L (98-107); Estimated GFR 75; Glucose 105 mg/dL (70-105); Magnesium 1.7 mg/dL (1.6-2.6); Potassium 3.7 mmol/L (3.5-5.1); Protein, Total 7.2 g/dL (6.0-8.3); Sodium 130 mmol/L (136-145)
[2023-07-21] MEDS: Furosemide 100 MG (10 mL) VIAL SLOW IVP SCH ×2 (06:55→15:20)
[2023-07-21] MEDS ORDERED: Magnesium 2 GM/50 ML(in water) 2 GM in Premix 1 BAG IVPB SCH (08:00)
[2023-07-21] MEDS ORDERED: DOBUTamine 500 mg/250 ml 250 ML IVPB SCH (09:45)
[2023-07-21] MEDS ORDERED: Potassium Chloride 20 MEQ TAB PO SCH (09:45)
[2023-07-21] MEDS: Enoxaparin 120 MG/0.8 ML SYRINGE SC SCH ×2 (10:06→21:51)
[2023-07-21] MEDS: Aspirin 81 mg Enteric Coated Tablet PO SCH (10:06)
[2023-07-21] MEDS: Thiamine 100 MG TAB PO SCH (10:06)
[2023-07-21] MEDS: Multivit, Therapeutic 1 TAB PO SCH (10:06)
[2023-07-21] MEDS: CO Q-10 CAPSULE 100 MG PO SCH (10:06)
[2023-07-21] MEDS: hydrOXYzine 25 MG TAB PO SCH ×3 (10:06→21:51)
[2023-07-21] MEDS: Cyanocobalamin (Vitamin B-12) 1,000 MCG TAB PO SCH (10:07)
[2023-07-21] MEDS: Escitalopram Oxalate 20 mg Tablet PO SCH (10:07)
[2023-07-21] MEDS: Empagliflozin 10 MG TAB PO SCH (10:07)
[2023-07-21] MEDS: Magnesium Oxide 250 MG TAB PO SCH (10:07)
[2023-07-21] MEDS: Folic Acid 1 MG TAB PO SCH (10:07)
[2023-07-21] MEDS: chlordiazePOXIDE HCl 5 MG CAP PO SCH ×3 (10:16→21:51)
[2023-07-21] MEDS: Spironolactone 100 MG TAB PO SCH (10:23)
[2023-07-21] MEDS: Fenofibrate 48 MG TAB PO SCH (10:51)
[2023-07-21] MEDS: Transdermal Patch Removal TOP SCH (15:43)
[2023-07-21] MEDS: ALPRAZolam 0.25 MG TAB PO SCH (21:50)
[2023-07-21] MEDS: Melatonin 3 MG TAB PO SCH (21:52)
[2023-07-21] MEDS: QUEtiapine 25 MG TAB PO SCH (21:52)
[2023-07-21] MEDS: traMADol HCl 50 MG TAB PO PRN (21:53)
[2023-07-21 22:56] LABS: INR-International Normal Ratio 1.1; Prothrombin Time 14.6 sec (12.0-14.7)
[2023-07-21 22:57] LABS: PTT 37.4 sec (22.9-36.1)
[2023-07-22] MEDS: Lidocaine 4% Patch TD SCH (02:56)
[2023-07-22] MEDS: Furosemide 100 MG (10 mL) VIAL SLOW IVP SCH ×2 (05:44→15:20)
[2023-07-22 06:20] LABS: #Eosinphils 0.1 thou/uL (0.0-0.7); #Monocytes 0.9 thou/uL (0.11-0.59); %Basophils 0.4 % (0.0-1.0); %Eosinophils 1.3 % (0.0-10.0); %Monocytes 10.4 % (0.0-10.0); %Neutrophils 71.2 % (42.0-75.0); Hematocrit 35.3 % (42.0-52.0); Hemoglobin 11.7 g/dL (14.0-18.0); Mean Corpuscular HGB CONC 33.1 g/dL (32.0-36.0); Mean Corpuscular Hemoglobin 31.7 pg (27.0-31.0); Mean Corpuscular Volume 95.7 fl (78.0-98.0); Mean Platelet Volume 10.8 fL (7.4-10.4); Platelet Count 145 10x3/uL (130-400); RBC Distribution Width 19.5 % (11.5-14.5); Red Blood Cell (RBC) Count 3.69 mill/uL (4.70-6.10); White Blood Cell (WBC) Count 8.4 10x3/uL (4.8-10.8)
[2023-07-22 06:32] LABS: ALT (SGPT) 26 U/L (8-55); AST (SGOT) 36 U/L (5-34); Albumin 4.2 g/dL (3.5-5.0); Alkaline Phosphatase 130 U/L (40-110); Anion Gap 12 mmol/L (10-20); BUN (Urea Nitrogen) 28 mg/dL (8.9-20.6); Bilirubin, Total 3.3 mg/dL (0.2-1.2); Calc. Creatinine Clearance 123 mL/min (70-130); Calcium 9.7 mg/dL (7.8-10.44); Carbon Dioxide 34 mmol/L (22-29); Chloride 90 mmol/L (98-107); Estimated GFR 82; Glucose 99 mg/dL (70-105); Potassium 3.4 mmol/L (3.5-5.1); Protein, Total 7.2 g/dL (6.0-8.3); Sodium 133 mmol/L (136-145)
[2023-07-22] MEDS ORDERED: Potassium Chloride 20 MEQ TAB PO SCH (08:00)
[2023-07-22] MEDS: Magnesium Oxide 250 MG TAB PO SCH (08:15)
[2023-07-22] MEDS: Escitalopram Oxalate 20 mg Tablet PO SCH (08:15)
[2023-07-22] MEDS: Multivit, Therapeutic 1 TAB PO SCH (08:15)
[2023-07-22] MEDS: chlordiazePOXIDE HCl 5 MG CAP PO SCH ×3 (08:15→20:20)
[2023-07-22] MEDS: CO Q-10 CAPSULE 100 MG PO SCH (08:15)
[2023-07-22] MEDS: Folic Acid 1 MG TAB PO SCH (08:15)
[2023-07-22] MEDS: Thiamine 100 MG TAB PO SCH (08:15)
[2023-07-22] MEDS: Enoxaparin 120 MG/0.8 ML SYRINGE SC SCH (08:15)
[2023-07-22] MEDS: Cyanocobalamin (Vitamin B-12) 1,000 MCG TAB PO SCH (08:15)
[2023-07-22] MEDS: Aspirin 81 mg Enteric Coated Tablet PO SCH (08:16)
[2023-07-22] MEDS: Empagliflozin 10 MG TAB PO SCH (08:16)
[2023-07-22] MEDS: hydrOXYzine 25 MG TAB PO SCH ×3 (08:16→20:20)
[2023-07-22] MEDS: Spironolactone 100 MG TAB PO SCH (08:16)
[2023-07-22 11:58] VITALS: BMI 32.0
[2023-07-22] MEDS: Transdermal Patch Removal TOP SCH (15:26)
[2023-07-22] MEDS: Melatonin 3 MG TAB PO SCH (20:20)
[2023-07-22] MEDS: ALPRAZolam 0.25 MG TAB PO SCH (20:20)
[2023-07-22] MEDS: QUEtiapine 25 MG TAB PO SCH (20:20)
[2023-07-22] MEDS: Apixaban 5 MG TAB PO SCH (20:20)
[2023-07-22] MEDS: traMADol HCl 50 MG TAB PO PRN (20:21)
[2023-07-23] MEDS: Lidocaine 4% Patch TD SCH (01:11)
[2023-07-23 06:32] LABS: #Eosinphils 0.1 thou/uL (0.0-0.7); #Monocytes 0.8 thou/uL (0.11-0.59); #Neutrophils 6.5 thou/uL (1.40-6.50); %Basophils 0.5 % (0.0-1.0); %Eosinophils 0.9 % (0.0-10.0); %Lymphocytes 15.1 % (21.0-51.0); %Monocytes 9.5 % (0.0-10.0); %Neutrophils 73.5 % (42.0-75.0); Hematocrit 37.6 % (42.0-52.0); Hemoglobin 12.5 g/dL (14.0-18.0); Mean Corpuscular HGB CONC 33.2 g/dL (32.0-36.0); Mean Corpuscular Hemoglobin 32.4 pg (27.0-31.0); Mean Corpuscular Volume 97.4 fl (78.0-98.0); Platelet Count 158 10x3/uL (130-400); RBC Distribution Width 19.7 % (11.5-14.5); Red Blood Cell (RBC) Count 3.86 mill/uL (4.70-6.10); White Blood Cell (WBC) Count 8.8 10x3/uL (4.8-10.8)
[2023-07-23 07:01] LABS: ALT (SGPT) 27 U/L (8-55); AST (SGOT) 35 U/L (5-34); Albumin 4.5 g/dL (3.5-5.0); Alkaline Phosphatase 139 U/L (40-110); Anion Gap 16 mmol/L (10-20); BUN (Urea Nitrogen) 26 mg/dL (8.9-20.6); Bilirubin, Total 3.6 mg/dL (0.2-1.2); Calc. Creatinine Clearance 98 mL/min (70-130); Calcium 9.8 mg/dL (7.8-10.44); Carbon Dioxide 33 mmol/L (22-29); Chloride 89 mmol/L (98-107); Estimated GFR 65; Globulin 3.3 g/dL (2.4-3.5); Glucose 97 mg/dL (70-105); Potassium 3.8 mmol/L (3.5-5.1); Protein, Total 7.8 g/dL (6.0-8.3); Sodium 134 mmol/L (136-145)
[2023-07-23] MEDS: Spironolactone 100 MG TAB PO SCH (08:33)
[2023-07-23] MEDS: hydrOXYzine 25 MG TAB PO SCH ×3 (08:39→20:20)
[2023-07-23] MEDS: CO Q-10 CAPSULE 100 MG PO SCH (08:40)
[2023-07-23] MEDS: traMADol HCl 50 MG TAB PO PRN ×2 (08:40→14:30)
[2023-07-23] MEDS: Multivit, Therapeutic 1 TAB PO SCH (08:44)
[2023-07-23] MEDS: Empagliflozin 10 MG TAB PO SCH (08:44)
[2023-07-23] MEDS: chlordiazePOXIDE HCl 5 MG CAP PO SCH ×3 (08:45→20:20)
[2023-07-23] MEDS: Cyanocobalamin (Vitamin B-12) 1,000 MCG TAB PO SCH (08:45)
[2023-07-23] MEDS: Thiamine 100 MG TAB PO SCH (08:45)
[2023-07-23] MEDS: Folic Acid 1 MG TAB PO SCH (08:46)
[2023-07-23] MEDS: Magnesium Oxide 250 MG TAB PO SCH (08:46)
[2023-07-23] MEDS: Escitalopram Oxalate 20 mg Tablet PO SCH (08:46)
[2023-07-23] MEDS: Apixaban 5 MG TAB PO SCH ×2 (08:47→20:20)
[2023-07-23] MEDS: DOBUTamine 500 mg/250 ml 250 ML IVPB SCH (12:02)
[2023-07-23] MEDS ORDERED: Potassium Chloride 20 MEQ TAB PO SCH (13:30)
[2023-07-23] MEDS: Furosemide 100 MG (10 mL) VIAL SLOW IVP SCH ×2 (14:04→14:22)
[2023-07-23] MEDS: Transdermal Patch Removal TOP SCH (14:34)
[2023-07-23 19:43] LABS: SARS-CoV-2 NAA Rapid Test Not Detected (NotDetected)
[2023-07-23] MEDS: Melatonin 3 MG TAB PO SCH (20:19)
[2023-07-23] MEDS: Furosemide 40 MG TAB PO SCH (20:20)
[2023-07-23] MEDS: QUEtiapine 25 MG TAB PO SCH (20:20)
[2023-07-23] MEDS: ALPRAZolam 0.25 MG TAB PO SCH (20:20)
[2023-07-24] MEDS: DOBUTamine 500 mg/250 ml 250 ML IVPB SCH (02:19)
[2023-07-24] MEDS: Lidocaine 4% Patch TD SCH (03:16)
[2023-07-24 06:30] LABS: ALT (SGPT) 23 U/L (8-55); AST (SGOT) 29 U/L (5-34); Albumin 4.4 g/dL (3.5-5.0); Alkaline Phosphatase 128 U/L (40-110); Anion Gap 16 mmol/L (10-20); BUN (Urea Nitrogen) 27 mg/dL (8.9-20.6); Bilirubin, Total 4.3 mg/dL (0.2-1.2); Calc. Creatinine Clearance 105 mL/min (70-130); Calcium 9.9 mg/dL (7.8-10.44); Carbon Dioxide 29 mmol/L (22-29); Chloride 90 mmol/L (98-107); Estimated GFR 70; Globulin 3.3 g/dL (2.4-3.5); Glucose 95 mg/dL (70-105); Potassium 3.8 mmol/L (3.5-5.1); Protein, Total 7.7 g/dL (6.0-8.3); Sodium 131 mmol/L (136-145)
[2023-07-24] MEDS: Thiamine 100 MG TAB PO SCH (09:09)
[2023-07-24] MEDS: chlordiazePOXIDE HCl 5 MG CAP PO SCH ×2 (09:09→21:13)
[2023-07-24] MEDS: Cyanocobalamin (Vitamin B-12) 1,000 MCG TAB PO SCH (09:09)
[2023-07-24] MEDS: Apixaban 5 MG TAB PO SCH (09:09)
[2023-07-24] MEDS: Escitalopram Oxalate 20 mg Tablet PO SCH (09:09)
[2023-07-24] MEDS: hydrOXYzine 25 MG TAB PO SCH ×3 (09:09→21:14)
[2023-07-24] MEDS: CO Q-10 CAPSULE 100 MG PO SCH (09:10)
[2023-07-24] MEDS: Magnesium Oxide 250 MG TAB PO SCH (09:10)
[2023-07-24] MEDS: Empagliflozin 10 MG TAB PO SCH (09:10)
[2023-07-24] MEDS: Folic Acid 1 MG TAB PO SCH (09:10)
[2023-07-24] MEDS: Furosemide 40 MG TAB PO SCH ×2 (09:10→09:42)
[2023-07-24] MEDS: Multivit, Therapeutic 1 TAB PO SCH (09:10)
[2023-07-24] MEDS: Spironolactone 100 MG TAB PO SCH (09:10)
[2023-07-24] MEDS ORDERED: Furosemide 100 MG (10 mL) VIAL SLOW IVP SCH ×2 (09:15→18:00)
[2023-07-24] MEDS ORDERED: Potassium Chloride 20 MEQ TAB PO SCH (09:30)
[2023-07-24] MEDS: traMADol HCl 50 MG TAB PO PRN ×2 (12:19→23:12)
[2023-07-24] MEDS: Transdermal Patch Removal TOP SCH (15:38)
[2023-07-24] MEDS ORDERED: DOBUTamine 500 mg/250 ml 250 ML IVPB SCH (17:15)
[2023-07-24] MEDS: ALPRAZolam 0.25 MG TAB PO SCH (21:13)
[2023-07-24] MEDS: Melatonin 3 MG TAB PO SCH (21:14)
[2023-07-24] MEDS: QUEtiapine 25 MG TAB PO SCH (21:14)
[2023-07-24] MEDS ORDERED: Lidocaine 2% Viscous Solution 10 ML, Aluminum & Magnesium Hydroxide 30 ML SSW SCH (23:30)
[2023-07-25] MEDS: Lidocaine 4% Patch TD SCH (02:00)
[2023-07-25] MEDS ORDERED: Furosemide 40 MG (4 mL) VIAL SLOW IVP SCH (06:00)
[2023-07-25] MEDS ORDERED: Furosemide 100 MG (10 mL) VIAL SLOW IVP SCH (06:00)
[2023-07-25 06:44] LABS: ALT (SGPT) 23 U/L (8-55); AST (SGOT) 28 U/L (5-34); Albumin 4.3 g/dL (3.5-5.0); Alkaline Phosphatase 115 U/L (40-110); Anion Gap 19 mmol/L (10-20); BUN (Urea Nitrogen) 29 mg/dL (8.9-20.6); Bilirubin, Total 5.6 mg/dL (0.2-1.2); Calc. Creatinine Clearance 97 mL/min (70-130); Calcium 9.9 mg/dL (7.8-10.44); Carbon Dioxide 23 mmol/L (22-29); Chloride 89 mmol/L (98-107); Estimated GFR 63; Globulin 3.3 g/dL (2.4-3.5); Glucose 122 mg/dL (70-105); Magnesium 1.9 mg/dL (1.6-2.6); Potassium 4.2 mmol/L (3.5-5.1); Protein, Total 7.6 g/dL (6.0-8.3); Sodium 127 mmol/L (136-145)
[2023-07-25] MEDS ORDERED: Magnesium 2 GM/50 ML(in water) 2 GM in Premix 1 BAG IVPB SCH (08:00)
[2023-07-25] MEDS: Magnesium Oxide 250 MG TAB PO SCH (08:41)
[2023-07-25] MEDS: Escitalopram Oxalate 20 mg Tablet PO SCH (08:41)
[2023-07-25] MEDS: Folic Acid 1 MG TAB PO SCH (08:41)
[2023-07-25] MEDS: Cyanocobalamin (Vitamin B-12) 1,000 MCG TAB PO SCH (08:41)
[2023-07-25] MEDS: Thiamine 100 MG TAB PO SCH (08:41)
[2023-07-25] MEDS: hydrOXYzine 25 MG TAB PO SCH (08:41)
[2023-07-25] MEDS: chlordiazePOXIDE HCl 5 MG CAP PO SCH (08:41)
[2023-07-25] MEDS: Empagliflozin 10 MG TAB PO SCH (08:41)
[2023-07-25] MEDS: Multivit, Therapeutic 1 TAB PO SCH (08:41)
[2023-07-25] MEDS: CO Q-10 CAPSULE 100 MG PO SCH (08:41)
[2023-07-25] MEDS: Spironolactone 100 MG TAB PO SCH (08:41)
[2023-07-25] MEDS ORDERED: Sacubitril 24MG/Valsartan 26 MG TAB PO SCH ×2 (09:30→21:00)
[2023-07-25 12:11] VITALS: BP 115/81; TEMP 97
== END 2023-07-25 13:15 | disposition hospice, home (50) | DRG 280 ==
LOC: ERS 23:12 → ERHOLD 07-15 02:13 → 2NO 07-15 13:01
PROVIDERS: ADMIT Student in an Organized Health Care Education/Training Program; ATTEND Family Medicine
PROC: 5A09357 Assistance with Respiratory Ventilation, Less than 24 Consecutive Hours, Continuous Positive Airway Pressure (ICD-10-PCS; principal; 2023-07-16)
DX: I11.0 Hypertensive heart disease with heart failure (principal); I50.23 Acute on chronic systolic (congestive) heart failure; I21.A1 Myocardial infarction type 2; N17.9 Acute kidney failure, unspecified; I82.432 Acute embolism and thrombosis of left popliteal vein; E87.1 Hypo-osmolality and hyponatremia; Z88.5 Allergy status to narcotic agent; Z79.899 Other long term (current) drug therapy; Z79.82 Long term (current) use of aspirin; Z95.0 Presence of cardiac pacemaker; K21.9 Gastro-esophageal reflux disease without esophagitis; F41.9 Anxiety disorder, unspecified; F32.A Depression, unspecified; F17.290 Nicotine dependence, other tobacco product, uncomplicated; Z11.52 Encounter for screening for COVID-19; F10.20 Alcohol dependence, uncomplicated; E80.6 Other disorders of bilirubin metabolism; E83.119 Hemochromatosis, unspecified; I42.0 Dilated cardiomyopathy; N18.30 Chronic kidney disease, stage 3 unspecified; K72.90 Hepatic failure, unspecified without coma; K70.31 Alcoholic cirrhosis of liver with ascites; Z51.5 Encounter for palliative care
CPT/HCPCS: 0241U; 36415; 71045; 72070; 72100; 80048; 80053; 80076; 80143; 80307; 82728; 83540; 83550; 83605; 83735; 83880; 84100; 84484; 85025; 85610; 85730; 93005; 94660; 96374; 97139; J1250; J1650; J1885; J1940; J3411; J3475; J3490; J7120; Q0162